=== PATIENT | male | born 1945 | race Hispanic/Latino ===

== ENCOUNTER 2019-08-11 17:31 | Inpatient (IN) | payer MEDICARE ==
[2019-08-11] MEDS ORDERED: SODIUM CHLORIDE 0.9% 1000 ML IV SOLN IV ONE (19:13)
--- NOTE | 2019-08-11 19:18 | Emergency Department Report ---
ED General Adult HPI - General Chief complaint: Abdominal Pain Stated complaint: DIFFICULTY URINATING X1DAY Time Seen by Provider: 08/11/19 18:53 Source: EMS (EMS documentation not available at the time of chart dictation), RN notes reviewed, old records reviewed Mode of arrival: Stretcher Limitations: Physical Limitation - History of Present Illness Initial comments: The patient is a 74-year-old gentleman. The patient is not known to this provider previously. Patient has history of hepatic encephalopathy with liver cirrhosis, hyperammonemia, systemic inflammatory response syndrome, shock, septic versus distributive versus hypovolemic, previously required vasopressors, hypokalemia, malnutrition, A. fib with hypercoagulable state, numerous skin wounds, question subclinical hypothyroidism, and reported VRE in his urine. Patient was sent to the emergency room by his personal assisted for not producing any urine. Apparently, he had a condom catheter which was not attached or overlying his phallus. Therefore, no urine output was noted. In the emergency room, a Rodarte catheter was placed, and clear yellow urine was immediately obtained. In the emergency room, he was found to be hypothermic with a core temperature of 89 rectally, and was also found to be hypotensive, with a blood pressure in the 50s and 60s. The patient is making nonspecific sounds and moving his extremities without difficulty, he is not able to describe exacerbating or relieving factors, qualitative nature of his symptoms. His primary care physician and his personal assisted is Dr. Digna earl -: unknown Quality: other Consistency: other Improves with: other Worsens with: other Associated Symptoms: other - Related Data Previous Rx's Medication Instructions Recorded Last Taken Type Lactulose [Cephulac] 20 gm PO QDAY #30 oral.liqd 07/11/19 Unknown Rx Pantoprazole [Protonix TAB] 40 mg PO BID #60 tablet 07/11/19 Unknown Rx Rifaximin [Xifaxan] 550 mg PO BID tablet 07/11/19 Unknown Rx Sodium Bicarbonate 1,300 mg PO TID tablet 07/11/19 Unknown Rx oxyCODONE /ACETAMINOPHEN [Percocet 1 tab PO Q6H PRN #7 tablet 07/11/19 Unknown Rx 5/325 mg] Allergies Allergy/AdvReac Type Severity Reaction Status Date / Time Unable to Assess Allergy Verified 07/04/19 05:14 ED Review of Systems ROS: Stated complaint: DIFFICULTY URINATING X1DAY Other details as noted in HPI Comment: Unobtainable due to pts medical conditions ED Past Medical Hx - Past Medical History Previous Medical History?: Yes Hx Liver Disease: Yes (cirrhosis) Hx Renal Disease: Yes (ESRD) Additional medical history: alcoholic - Social History Smoking Status: Never Smoker - Medications Home Medications: Home Medications Medication Instructions Recorded Confirmed Last Taken Type Lactulose [Cephulac] 20 gm PO QDAY #30 oral.liqd 07/11/19 Unknown Rx Pantoprazole [Protonix TAB] 40 mg PO BID #60 tablet 07/11/19 Unknown Rx Rifaximin [Xifaxan] 550 mg PO BID tablet 07/11/19 Unknown Rx Sodium Bicarbonate 1,300 mg PO TID tablet 07/11/19 Unknown Rx oxyCODONE /ACETAMINOPHEN [Percocet 1 tab PO Q6H PRN #7 tablet 07/11/19 Unknown Rx 5/325 mg] ED Physical Exam - General Limitations: Physical Limitation General appearance: in distress, other (H and agitated.) - Head Head exam: Present: atraumatic, normocephalic - Eye Eye exam: Present: normal appearance - ENT ENT exam: Present: normal orophraynx, mucous membranes dry, normal external ear exam - Neck Neck exam: Present: normal inspection, full ROM. Absent: tenderness, meningismus - Respiratory Respiratory exam: Present: decreased breath sounds. Absent: respiratory distress, wheezes, rales, rhonchi, stridor - Cardiovascular Cardiovascular Exam: Present: regular rate, normal rhythm. Absent: tachycardia, irregular rhythm, systolic murmur, diastolic murmur, rubs, gallop - GI/Abdominal GI/Abdominal exam: Present: soft, distended. Absent: tenderness, guarding, rebound, rigid, pulsatile mass - Rectal Rectal exam: Present: normal inspection, other (sacral wound is noted. Brown stool noted.) - Extremities Exam Extremities exam: Present: normal inspection, pedal edema - Back Exam Back exam: Present: normal inspection. Absent: tenderness, CVA tenderness (R), paraspinal tenderness, vertebral tenderness - Neurological Exam Neurological exam: Present: altered, other (patient moving 4 extremities. Flailing back and forth. Making nonsensical sounds. Unable to perform detailed neurologic examination secondary to altered mental status) - Psychiatric Psychiatric exam: Present: anxious - Skin Skin exam: Present: warm, abrasion, ecchymosis, other (numerous skin wounds noted. Edema noted on lower extremities.) ED Course - Reevaluation(s) Reevaluation #1: 08/11/19 20:28 Differential diagnosis, including not limited to: Bacteremia, viremia, hypothyroidism, hyperammonemia, Assessment and plan: 74-year-old gentleman, with clear yellow urine output after placement of Rodarte catheter, found to be hypothermic and hypotensive. Patient is delirious at this time. His enclosed documentation indicates that he is a full code. He will require emergent placement of central venous line for administration of fluids, vasopressor therapy, and broad-spectrum antibiotics. CT scan of the brain requested. Prognosis is quite guarded at this time. EKG attempted, however, patient would not sit still, the EKG is uninterpretable at this time. We will give the patient a small dose of Versed To facilitate acquisition of diagnostics, EKG and placement of the central line. Reevaluation #2: 08/11/19 20:30 The patient will be placed on contact isolation given history of vancomycin- resistant enterococcus. Cefepime and linelozid were ordered Reevaluation #3: 08/11/19 22:21 Patient remained persistently hypotensive. Required emergent sterile placement of central line. This was performed with ultrasound guidance. Laboratory studies suggest renal insufficiency, hypoglycemia, hyperammonemia, hypokalemia, leukocytosis, probable hepatorenal syndrome. Vasopressors are ordered and infusing. Hospital physician, Dr. Alvarado medical service. - Central Line Placement Left IJ Consent Obtained: emergent situation Time Out Performed: Yes Patient Placed on Monitor/Pulse Ox: Yes MD Prep: mask, gown, gloves Central Line Prep: Chlorhexidine scrub, sterile drapes applied Local Anesthesia Used: Lidocaine 2%, with Epi Amount of Anesthesia Used (mls): 6 Ultrasound Used for Placement: Yes Central Line Lumen Inserted: triple Bloods Obtained for Lab: No Central Line Position: good blood return, all ports aspirated, flus, sutured in place with 2-0 Dressing Applied: Tegaderm Post Procedure X-Ray: tip of catheter in good p Patient Tolerated Procedure: well Complications: none ED Medical Decision Making - Lab Data Result diagrams: 08/11/19 20:14 08/11/19 20:11 Lab Results 08/11/19 08/11/19 08/11/19 Range/Units 20:11 20:11 20:11 WBC (4.5-11.0) K/mm3 RBC (3.65-5.03) M/mm3 Hgb (11.8-15.2) gm/dl Hct (35.5-45.6) % MCV (84-94) fl MCH (28-32) pg MCHC (32-34) % RDW (13.2-15.2) % Plt Count (140-440) K/mm3 Add Manual Diff Total Counted Seg Neutrophils % Seg Neuts % (Manual) (40.0-70.0) % Band Neutrophils % % Lymphocytes % (Manual) (13.4-35.0) % Reactive Lymphs % (Man) % Monocytes % (Manual) (0.0-7.3) % Eosinophils % (Manual) (0.0-4.3) % Basophils % (Manual) (0.0-1.8) % Metamyelocytes % % Myelocytes % % Promyelocytes % % Blast Cells % % Nucleated RBC % Seg Neutrophils # Man (1.8-7.7) K/mm3 Band Neutrophils # K/mm3 Lymphocytes # (Manual) (1.2-5.4) K/mm3 Abs React Lymphs (Man) K/mm3 Monocytes # (Manual) (0.0-0.8) K/mm3 Eosinophils # (Manual) (0.0-0.4) K/mm3 Basophils # (Manual) (0.0-0.1) K/mm3 Metamyelocytes # K/mm3 Myelocytes # K/mm3 Promyelocytes # K/mm3 Blast Cells # K/mm3 WBC Morphology Hypersegmented Neuts Hyposegmented Neuts Hypogranular Neuts Smudge Cells Toxic Granulation Toxic Vacuolation Dohle Bodies Pelger-Huet Anomaly Pastor Rods Platelet Estimate Clumped Platelets Plt Clumps, EDTA Large Platelets Giant Platelets Platelet Satelliting Plt Morphology Comment RBC Morphology Dimorphic RBCs Polychromasia Hypochromasia Poikilocytosis Anisocytosis Microcytosis Macrocytosis Spherocytes Pappenheimer Bodies Sickle Cells Target Cells Tear Drop Cells Ovalocytes Helmet Cells Pruitt-Leyner Bodies Becket Rings Crisfield Cells Bite Cells Crenated Cell Elliptocytes Acanthocytes (Spur) Rouleaux Hemoglobin C Crystals Schistocytes Malaria parasites Ranjith Bodies Hem Pathologist Commnt PT 21.1 H (12.2-14.9) Sec. INR 1.86 H (0.87-1.13) APTT 52.9 H (24.2-36.6) Sec. Sodium (137-145) mmol/L Potassium (3.6-5.0) mmol/L Chloride (98-107) mmol/L Carbon Dioxide (22-30) mmol/L Anion Gap mmol/L BUN (9-20) mg/dL Creatinine (0.8-1.5) mg/dL Estimated GFR ml/min BUN/Creatinine Ratio % Glucose (75-100) mg/dL Lactic Acid 3.00 H* (0.7-2.0) mmol/L Calcium (8.4-10.2) mg/dL Total Bilirubin (0.1-1.2) mg/dL AST (5-40) units/L ALT (7-56) units/L Alkaline Phosphatase (35-129) units/L Ammonia (25-60) umol/L Total Creatine Kinase (55-170) units/L Troponin T 0.086 H (0.00-0.029) ng/mL Total Protein (6.3-8.2) g/dL Albumin (3.9-5) g/dL Albumin/Globulin Ratio % Triglycerides 93 (2-149) mg/dL Cholesterol 168 (50-199) mg/dL LDL Cholesterol Direct 140 H (50-130) mg/dL HDL Cholesterol 14 L (40-59) mg/dL Cholesterol/HDL Ratio 12.00 % TSH (0.270-4.200) mlU/mL Salicylates (2.8-20.0) mg/dL Acetaminophen (10.0-30.0) ug/mL Plasma/Serum Alcohol (0-0.07) % Blood Type Antibody Screen 08/11/19 08/11/19 08/11/19 Range/Units 20:11 20:11 20:11 WBC (4.5-11.0) K/mm3 RBC (3.65-5.03) M/mm3 Hgb (11.8-15.2) gm/dl Hct (35.5-45.6) % MCV (84-94) fl MCH (28-32) pg MCHC (32-34) % RDW (13.2-15.2) % Plt Count (140-440) K/mm3 Add Manual Diff Total Counted Seg Neutrophils % Seg Neuts % (Manual) (40.0-70.0) % Band Neutrophils % % Lymphocytes % (Manual) (13.4-35.0) % Reactive Lymphs % (Man) % Monocytes % (Manual) (0.0-7.3) % Eosinophils % (Manual) (0.0-4.3) % Basophils % (Manual) (0.0-1.8) % Metamyelocytes % % Myelocytes % % Promyelocytes % % Blast Cells % % Nucleated RBC % Seg Neutrophils # Man (1.8-7.7) K/mm3 Band Neutrophils # K/mm3 Lymphocytes # (Manual) (1.2-5.4) K/mm3 Abs React Lymphs (Man) K/mm3 Monocytes # (Manual) (0.0-0.8) K/mm3 Eosinophils # (Manual) (0.0-0.4) K/mm3 Basophils # (Manual) (0.0-0.1) K/mm3 Metamyelocytes # K/mm3 Myelocytes # K/mm3 Promyelocytes # K/mm3 Blast Cells # K/mm3 WBC Morphology Hypersegmented Neuts Hyposegmented Neuts Hypogranular Neuts Smudge Cells Toxic Granulation Toxic Vacuolation Dohle Bodies Pelger-Huet Anomaly Pastor Rods Platelet Estimate Clumped Platelets Plt Clumps, EDTA Large Platelets Giant Platelets Platelet Satelliting Plt Morphology Comment RBC Morphology Dimorphic RBCs Polychromasia Hypochromasia Poikilocytosis Anisocytosis Microcytosis Macrocytosis Spherocytes Pappenheimer Bodies Sickle Cells Target Cells Tear Drop Cells Ovalocytes Helmet Cells Pruitt-Leyner Bodies Becket Rings Radha Cells Bite Cells Crenated Cell Elliptocytes Acanthocytes (Spur) Rouleaux Hemoglobin C Crystals Schistocytes Malaria parasites Ranjith Bodies Hem Pathologist Commnt PT (12.2-14.9) Sec. INR (0.87-1.13) APTT (24.2-36.6) Sec. Sodium 133 L (137-145) mmol/L Potassium 3.1 L (3.6-5.0) mmol/L Chloride 102.5 (98-107) mmol/L Carbon Dioxide 14 L (22-30) mmol/L Anion Gap 20 mmol/L BUN 79 H (9-20) mg/dL Creatinine 4.5 H (0.8-1.5) mg/dL Estimated GFR 13 ml/min BUN/Creatinine Ratio 18 % Glucose 61 L (75-100) mg/dL Lactic Acid (0.7-2.0) mmol/L Calcium 7.5 L (8.4-10.2) mg/dL Total Bilirubin 2.10 H (0.1-1.2) mg/dL AST 42 H (5-40) units/L ALT 17 (7-56) units/L Alkaline Phosphatase 148 H (35-129) units/L Ammonia 106.0 H (25-60) umol/L Total Creatine Kinase 34 L (55-170) units/L Troponin T (0.00-0.029) ng/mL Total Protein 4.9 L (6.3-8.2) g/dL Albumin 1.6 L (3.9-5) g/dL Albumin/Globulin Ratio 0.5 % Triglycerides (2-149) mg/dL Cholesterol (50-199) mg/dL LDL Cholesterol Direct (50-130) mg/dL HDL Cholesterol (40-59) mg/dL Cholesterol/HDL Ratio % TSH (0.270-4.200) mlU/mL Salicylates < 0.3 L (2.8-20.0) mg/dL Acetaminophen (10.0-30.0) ug/mL Plasma/Serum Alcohol (0-0.07) % Blood Type Antibody Screen 08/11/19 08/11/19 08/11/19 Range/Units 20:11 20:12 20:14 WBC 18.1 H (4.5-11.0) K/mm3 RBC 2.79 L (3.65-5.03) M/mm3 Hgb 8.7 L (11.8-15.2) gm/dl Hct 25.7 L (35.5-45.6) % MCV 92 (84-94) fl MCH 31 (28-32) pg MCHC 34 (32-34) % RDW 26.1 H (13.2-15.2) % Plt Count 72 L (140-440) K/mm3 Add Manual Diff Complete Total Counted 100 Seg Neutrophils % [employer] Seg Neuts % (Manual) 96.0 H (40.0-70.0) % Band Neutrophils % 0 % Lymphocytes % (Manual) 3.0 L (13.4-35.0) % Reactive Lymphs % (Man) 0 % Monocytes % (Manual) 0 (0.0-7.3) % Eosinophils % (Manual) 0 (0.0-4.3) % Basophils % (Manual) 0 (0.0-1.8) % Metamyelocytes % 1.0 % Myelocytes % 0 % Promyelocytes % 0 % Blast Cells % 0 % Nucleated RBC % Not Reportable Seg Neutrophils # Man 17.4 H (1.8-7.7) K/mm3 Band Neutrophils # 0.0 K/mm3 Lymphocytes # (Manual) 0.5 L (1.2-5.4) K/mm3 Abs React Lymphs (Man) 0.0 K/mm3 Monocytes # (Manual) 0.0 (0.0-0.8) K/mm3 Eosinophils # (Manual) 0.0 (0.0-0.4) K/mm3 Basophils # (Manual) 0.0 (0.0-0.1) K/mm3 Metamyelocytes # 0.2 K/mm3 Myelocytes # 0.0 K/mm3 Promyelocytes # 0.0 K/mm3 Blast Cells # 0.0 K/mm3 WBC Morphology Not Reportable Hypersegmented Neuts Not Reportable Hyposegmented Neuts Not Reportable Hypogranular Neuts Not Reportable Smudge Cells Not Reportable Toxic Granulation Not Reportable Toxic Vacuolation Not Reportable Dohle Bodies Not Reportable Pelger-Huet Anomaly Not Reportable Pastor Rods Not Reportable Platelet Estimate Consistent w auto Clumped Platelets Not Reportable Plt Clumps, EDTA Not Reportable Large Platelets Not Reportable Giant Platelets Not Reportable Platelet Satelliting Not Reportable Plt Morphology Comment Not Reportable RBC Morphology Not Reportable Dimorphic RBCs Not Reportable Polychromasia Not Reportable Hypochromasia Not Reportable Poikilocytosis 1+ Anisocytosis 1+ Microcytosis 1+ Macrocytosis Few Spherocytes Not Reportable Pappenheimer Bodies Not Reportable Sickle Cells Not Reportable Target Cells Not Reportable Tear Drop Cells Rare Ovalocytes Not Reportable Helmet Cells Not Reportable Pruitt-Leyner Bodies Not Reportable Becket Rings Not Reportable Radha Cells Not Reportable Bite Cells Not Reportable Crenated Cell Not Reportable Elliptocytes Not Reportable Acanthocytes (Spur) Not Reportable Rouleaux Not Reportable Hemoglobin C Crystals Not Reportable Schistocytes Not Reportable Malaria parasites Not Reportable Ranjith Bodies Not Reportable Hem Pathologist Commnt No PT (12.2-14.9) Sec. INR (0.87-1.13) APTT (24.2-36.6) Sec. Sodium (137-145) mmol/L Potassium (3.6-5.0) mmol/L Chloride (98-107) mmol/L Carbon Dioxide (22-30) mmol/L Anion Gap mmol/L BUN (9-20) mg/dL Creatinine (0.8-1.5) mg/dL Estimated GFR ml/min BUN/Creatinine Ratio % Glucose (75-100) mg/dL Lactic Acid (0.7-2.0) mmol/L Calcium (8.4-10.2) mg/dL Total Bilirubin (0.1-1.2) mg/dL AST (5-40) units/L ALT (7-56) units/L Alkaline Phosphatase (35-129) units/L Ammonia (25-60) umol/L Total Creatine Kinase (55-170) units/L Troponin T (0.00-0.029) ng/mL Total Protein (6.3-8.2) g/dL Albumin (3.9-5) g/dL Albumin/Globulin Ratio % Triglycerides (2-149) mg/dL Cholesterol (50-199) mg/dL LDL Cholesterol Direct (50-130) mg/dL HDL Cholesterol (40-59) mg/dL Cholesterol/HDL Ratio % TSH 2.280 (0.270-4.200) mlU/mL Salicylates (2.8-20.0) mg/dL Acetaminophen < 5.0 L (10.0-30.0) ug/mL Plasma/Serum Alcohol (0-0.07) % Blood Type Antibody Screen 08/11/19 08/11/19 Range/Units 20:14 20:15 WBC (4.5-11.0) K/mm3 RBC (3.65-5.03) M/mm3 Hgb (11.8-15.2) gm/dl Hct (35.5-45.6) % MCV (84-94) fl MCH (28-32) pg MCHC (32-34) % RDW (13.2-15.2) % Plt Count (140-440) K/mm3 Add Manual Diff Total Counted Seg Neutrophils % Seg Neuts % (Manual) (40.0-70.0) % Band Neutrophils % % Lymphocytes % (Manual) (13.4-35.0) % Reactive Lymphs % (Man) % Monocytes % (Manual) (0.0-7.3) % Eosinophils % (Manual) (0.0-4.3) % Basophils % (Manual) (0.0-1.8) % Metamyelocytes % % Myelocytes % % Promyelocytes % % Blast Cells % % Nucleated RBC % Seg Neutrophils # Man (1.8-7.7) K/mm3 Band Neutrophils # K/mm3 Lymphocytes # (Manual) (1.2-5.4) K/mm3 Abs React Lymphs (Man) K/mm3 Monocytes # (Manual) (0.0-0.8) K/mm3 Eosinophils # (Manual) (0.0-0.4) K/mm3 Basophils # (Manual) (0.0-0.1) K/mm3 Metamyelocytes # K/mm3 Myelocytes # K/mm3 Promyelocytes # K/mm3 Blast Cells # K/mm3 WBC Morphology Hypersegmented Neuts Hyposegmented Neuts Hypogranular Neuts Smudge Cells Toxic Granulation Toxic Vacuolation Dohle Bodies Pelger-Huet Anomaly Pastor Rods Platelet Estimate Clumped Platelets Plt Clumps, EDTA Large Platelets Giant Platelets Platelet Satelliting Plt Morphology Comment RBC Morphology Dimorphic RBCs Polychromasia Hypochromasia Poikilocytosis Anisocytosis Microcytosis Macrocytosis Spherocytes Pappenheimer Bodies Sickle Cells Target Cells Tear Drop Cells Ovalocytes Helmet Cells Pruitt-Leyner Bodies Becket Rings Crisfield Cells Bite Cells Crenated Cell Elliptocytes Acanthocytes (Spur) Rouleaux Hemoglobin C Crystals Schistocytes Malaria parasites Ranjith Bodies Hem Pathologist Commnt PT (12.2-14.9) Sec. INR (0.87-1.13) APTT (24.2-36.6) Sec. Sodium (137-145) mmol/L Potassium (3.6-5.0) mmol/L Chloride (98-107) mmol/L Carbon Dioxide (22-30) mmol/L Anion Gap mmol/L BUN (9-20) mg/dL Creatinine (0.8-1.5) mg/dL Estimated GFR ml/min BUN/Creatinine Ratio % Glucose (75-100) mg/dL Lactic Acid (0.7-2.0) mmol/L Calcium (8.4-10.2) mg/dL Total Bilirubin (0.1-1.2) mg/dL AST (5-40) units/L ALT (7-56) units/L Alkaline Phosphatase (35-129) units/L Ammonia (25-60) umol/L Total Creatine Kinase (55-170) units/L Troponin T (0.00-0.029) ng/mL Total Protein (6.3-8.2) g/dL Albumin (3.9-5) g/dL Albumin/Globulin Ratio % Triglycerides (2-149) mg/dL Cholesterol (50-199) mg/dL LDL Cholesterol Direct (50-130) mg/dL HDL Cholesterol (40-59) mg/dL Cholesterol/HDL Ratio % TSH (0.270-4.200) mlU/mL Salicylates (2.8-20.0) mg/dL Acetaminophen (10.0-30.0) ug/mL Plasma/Serum Alcohol < 0.01 (0-0.07) % Blood Type A NEGATIVE Antibody Screen Negative - EKG Data -: EKG Interpreted by Me - Radiology Data Radiology results: report reviewed, image reviewed interpreted by me: Print Report Referring Physician: JEREMIAS BESS Patient Name: ANNITA LEVY Date of : 1945 Sex: Male Report Date: 2019-08-11 Report Status: Finalized Findings [facility] [address] [place] [address] XRay Report Signed Patient: ANNITA LEVY MR#: [id number] [birth year] : 1945 Acct:[id number] Age/Sex: 74 / M ADM Date: 08/11/19 Loc: ED Attending Dr: Jessica anderson Physician: JEREMIAS BESS MD Date of Service: 08/11/19 Procedure(s): XR chest 1V ap Accession Number(s): [id number] cc: JEREMIAS BESS MD Fluoro Time In Minutes: CHEST 1 VIEW INDICATION / CLINICAL INFORMATION: centrla line placement. COMPARISON: 08/11/2019 at 1932 hours FINDINGS: SUPPORT DEVICES: Left central venous catheter which is superimposed over the aortic arch HEART / MEDIASTINUM: No significant abnormality. LUNGS / PLEURA: Bilateral pleural effusions No pneumothorax. ADDITIONAL FINDINGS: No significant additional findings. IMPRESSION: A left central venous catheter has been placed and the tip is superimposed over the expected position of the aortic arch. No evidence of a left-sided pneumothorax. Bilateral pleural effusions persist Signer Name: Chad Ontiveros MD FACR Signed: 08/11/2019 10:00 PM Workstation Name: [id number] Transcribed By: MS Dictated By: Chad Ontiveros MD Electronically Authenticated By: Chad Ontiveros MD Signed Date/Time: 08/11/192199 DD/ 58 Print Report Referring Physician: JEREMIAS BESS Patient Name: ANNITA LEVY Date of : 1945 Sex: Male Report Date: 2019-08-11 Report Status: Finalized Findings [facility] [address] [place] [address] Cat Scan Report Signed Patient: ANNITA LEVY MR#: [id number] [birth year] : 1945 Acct:[id number] Age/Sex: 74 / M ADM Date: 08/11/19 Loc: ED Attending Dr: Ordering Physician: JEREMIAS BESS MD Date of Service: 08/11/19 Procedure(s): CT head/brain wo con Accession Number(s): [id number] cc: JEREMIAS BESS MD CT HEAD WITHOUT CONTRAST INDICATION / CLINICAL INFORMATION: altered mental status. TECHNIQUE: All CT scans at this location are performed using CT dose reduction for ALARA by means of automated exposure control. COMPARISON: Head CT 07/04/2019 FINDINGS: Limitations: Multiple acquisitions were obtained to overcome significant patient motion artifact. HEMORRHAGE: No evidence of intracranial hemorrhage or extra-axial fluid collection. EXTRA-AXIAL SPACES: Cortical sulci and sylvian fissures are enlarged reflecting a degree of parenchymal volume loss which is greater than expected for the patient's age 74 years. Basilar cisterns have an unremarkable appearance. VENTRICULAR SYSTEM: The third and lateral ventricles are enlarged reflecting the presence of moderate parenchymal volume loss. CEREBRAL PARENCHYMA: Periventricular and deep white matter lucency is observed. This is probably secondary to microvascular ischemic change. There is no indication of recent infarction. No areas of encephalomalacia are identified. MIDLINE SHIFT OR HERNIATION: There is no mass effect. CEREBELLUM / BRAINSTEM: Brainstem and cerebellum have an unremarkable appearance. INTRACRANIAL VESSELS:Calcified atherosclerotic plaque is present along the course of the cavernous segments of both internal carotid arteries. Similar findings are seen at the distal vertebral arteries. ORBITS: visualized portions of the orbits have an unremarkable appearance. SOFT TISSUES of HEAD: No significant abnormality. CALVARIUM: Evaluation of bone windows reveals no abnormalities. PARANASAL SINUSES / MASTOID AIR CELLS: Paranasal sinuses are free from inflammatory mucosal disease. Inflammatory changes are present within several left-sided mastoid air cells. These findings have improved in comparison to previous study. IMPRESSION: 1. Moderate parenchymal volume loss and microvascular ischemic change. 2. No acute intracranial abnormalities. No interval change since 07/04/2019. Signer Name: Bishop Fairbanks MD Signed: 08/11/2019 9:34 PM Workstation Name: [id number] Transcribed By: Dictated By: Bishop Fairbanks MD Electronically Authenticated By: Bishop Fairbanks MD Signed Date/Time: 08/11/192133 DD/ 29 TD/TT: Print Report Referring Physician: JEREMIAS BESS Patient Name: ANNITA LEVY Date of : 1945 Sex: Male Report Date: 2019-08-11 Report Status: Finalized Findings [address] [address] XRay Report Signed Patient: ANNITA LEVY MR#: [id number] [birth year] : 1945 Acct:[id number] Age/Sex: 74 / M ADM Date: 08/11/19 Loc: ED Attending Dr: Ordering Physician: JEREMIAS BESS MD Date of Service: 08/11/19 Procedure(s): XR chest 1V ap Accession Number(s): [id number] cc: JEREMIAS BESS MD Fluoro Time In Minutes: CHEST 1 VIEW INDICATION / CLINICAL INFORMATION: sepsis. COMPARISON: None available. FINDINGS: SUPPORT DEVICES: None. HEART / MEDIASTINUM: No significant abnormality. LUNGS / PLEURA: Pleural-parenchymal disease in the left lung base similar to 07/06/2019 No pneumothorax. ADDITIONAL FINDINGS: No significant additional findings. IMPRESSION: All parenchymal disease in the left lung base similar to 07/06/2019. The right lung is clear. Signer Name: Chad Ontiveros MD FACR Signed: 08/11/2019 7:56 PM Workstation Name: [id number] Transcribed By: MS Dictated By: Chad Ontiveros MD Electronically Authenti cated By: Chad Ontiveros MD Signed Date/Time: 08/11/191955 Critical Care Time: Yes Critical care time in (mins) excluding proc time.: 60 Critical care attestation.: If time is entered above; I have spent that time in minutes in the direct care of this critically ill patient, excluding procedure time. ED Disposition Clinical Impression: Renal insufficiency, Hepatic encephalopathy, Hypothermia, Encephalopathy, Severe malnutrition, Cirrhosis, Lactic acid acidosis Disposition: DC-09 OP ADMIT IP TO THIS HOSP Is pt being admited?: Yes Condition: Critical
[2019-08-11] MEDS ORDERED: LINEZOLID 600 MG/300 ML BAG IV ONE (20:00)
[2019-08-11] MEDS ORDERED: CEFEPIME/NS 2 GM/100 ML 2 GM/100 ML BAG IV ONE (20:00)
--- NOTE | 2019-08-11 20:00 | XRay Report ---
CHEST 1 VIEW INDICATION / CLINICAL INFORMATION: sepsis. COMPARISON: None available. FINDINGS: SUPPORT DEVICES: None. HEART / MEDIASTINUM: No significant abnormality. LUNGS / PLEURA: Pleural-parenchymal disease in the left lung base similar to 07/06/2019 No pneumothor ax. ADDITIONAL FINDINGS: No significant additional findings. IMPRESSION: All parenchymal disease in the left lung base similar to 07/06/2019. The right lung is clear. Signer Name: Chad Ontiveros MD FACR Signed: 08/11/2019 7:56 PM Workstation Name: [id number]
[2019-08-11] MEDS ORDERED: LIDOCAINE 2%/EPINEPHRINE 1:200,000 VIAL (20 ML) INFILTRATI ONE (20:21)
[2019-08-11] MEDS ORDERED: MIDAZOLAM 5 MG/5 ML INJ MDV IV ONE (20:31)
[2019-08-11 20:37] LABS: Hematocrit 25.7 % (35.5-45.6); Hemoglobin 8.7 gm/dl (11.8-15.2); Mean Corpuscular HGB Conc 34 % (32-34); Mean Corpuscular Volume 92 fl (84-94); Red Blood Count 2.79 M/mm3 (3.65-5.03)
[2019-08-11 20:44] LABS: Albumin 1.6 g/dL (3.9-5); Calcium 7.5 mg/dL (8.4-10.2)
[2019-08-11 20:44] LABS: Platelet Count 72 K/mm3 (140-440); Red Cell Distribution Width 26.1 % (13.2-15.2)
[2019-08-11 20:46] LABS: INR 1.86 (0.87-1.13)
[2019-08-11 20:47] LABS: Partial Thromboplastin Time 52.9 Sec. (24.2-36.6)
[2019-08-11] MEDS ORDERED: DEXTROSE 50% IN WATER (25GM) 50 ML SYRINGE IV ONE (21:37)
[2019-08-11] MEDS ORDERED: DEXTROSE 50% IN WATER (25GM) 50 ML SYRINGE IV PRN ×2 (21:37→23:00)
[2019-08-11] MEDS ORDERED: LACTULOSE ENEMA 1000 ML PR ONE (21:38)
--- NOTE | 2019-08-11 21:38 | Cat Scan Report ---
CT HEAD WITHOUT CONTRAST INDICATION / CLINICAL INFORMATION: altered mental status. TECHNIQUE: All CT scans at this location are performed using CT dose reduction for ALARA by means of automated e xposure control. COMPARISON: Head CT 07/04/2019 FINDINGS: Limitations: Multiple acquisitions were obtained to overcome significant patient motion artifact. HEMORRHAGE: No evidence of intracranial hemorrhage or extra-axial fluid collection. EXTRA-AXIAL SPACES: Cortical sulci and sylvian fissures are enlarged reflecting a degree of parenchym al volume loss which is greater than expected for the patient's age 74 years. Basilar cisterns have a n unremarkable appearance. VENTRICULAR SYSTEM: The third and lateral ventricles are enlarged reflecting the presence of moderate parenchymal volume loss. CEREBRAL PARENCHYMA: Periventricular and deep white matter lucency is observed. This is probably seco ndary to microvascular ischemic change. There is no indication of recent infarction. No areas of ence phalomalacia are identified. MIDLINE SHIFT OR HERNIATION: There is no mass effect. CEREBELLUM / BRAINSTEM: Brainstem and cerebellum have an unremarkable appearance. INTRACRANIAL VESSELS:Calcified atherosclerotic plaque is present along the course of the cavernous se gments of both internal carotid arteries. Similar findings are seen at the distal vertebral arteries. ORBITS: visualized portions of the orbits have an unremarkable appearance. SOFT TISSUES of HEAD: No significant abnormality. CALVARIUM: Evaluation of bone windows reveals no abnormalities. PARANASAL SINUSES / MASTOID AIR CELLS: Paranasal sinuses are free from inflammatory mucosal disease. Inflammatory changes are present within several left-sided mastoid air cells. These findings have imp roved in comparison to previous study. IMPRESSION: 1. Moderate parenchymal volume loss and microvascular ischemic change. 2. No acute intracranial abnormalities. No interval change since 07/04/2019. Signer Name: Bishop Fairbanks MD Signed: 08/11/2019 9:34 PM Workstation Name: [id number]
[2019-08-11 21:44] LABS: Basophils % (Manual) 0 % (0.0-1.8); Eosinophils % (Manual) 0 % (0.0-4.3); Monocytes % (Manual) 0 % (0.0-7.3); Total Cells Counted 100
[2019-08-11 21:45] LABS: Anisocytosis 1+; Macrocytosis Few; Poikilocytosis 1+; Tear Drop Cells Rare
[2019-08-11 21:46] LABS: Platelet Estimate Consistent w Auto
[2019-08-11] MEDS ORDERED: DEXTROSE 10% IN WATER 1,000 ML IV SCH (22:00)
--- NOTE | 2019-08-11 22:05 | XRay Report ---
CHEST 1 VIEW INDICATION / CLINICAL INFORMATION: centrla line placement. COMPARISON: 08/11/2019 at 1932 hours FINDINGS: SUPPORT DEVICES: Left central venous catheter which is superimposed over the aortic arch HEART / MEDIASTINUM: No significant abnormality. LUNGS / PLEURA: Bilateral pleural effusions No pneumothorax. ADDITIONAL FINDINGS: No significant additional findings. IMPRESSION: A left central venous catheter has been placed and the tip is superimposed over the expected position of the aortic arch. No evidence of a left-sided pneumothorax. Bilateral pleural effusions persist Signer Name: Chad Ontiveros MD FACR Signed: 08/11/2019 10:00 PM Workstation Name: [id number]
[2019-08-11] MEDS: POTASSIUM CHLORIDE 20 MEQ 20 MEQ/100 ML BAG IV SCH (22:30)
[2019-08-11] MEDS: NORepinephrine/NS 4 MG-250 ML 4 MG/250 ML BAG IV SCH (22:30)
[2019-08-11] MEDS ORDERED: ONDANSETRON 4 MG/2 ML INJ IV PRN (23:13)
--- NOTE | 2019-08-11 23:31 | History and Physical Report ---
History of Present Illness Date of examination: 08/11/19 Date of admission: 08/11/19 23:13 History of present illness: Patient is unable to give a history. Old chart was reviewed. This is a 74 with a history of cirrhosis, pressure ulcers was sent to the emergency room for evaluation of notbeing able to make urine. The condom cath was not in place. In the emergency room, a Rodarte was placed In the emergency room, a Rodarte was placed with good results. Patient was found to be septic with hepatic encephalopathy. s/p cefepime, zyvox, started on levophed drip. A review of system is unavailable PAST MEDICAL HISTORY cirrhosis, pressure ulcers PAST SURGICAL HISTORY: Unknown SOCIAL HISTORY: Unknown FAMILY HISTORY: Unknown Medications and Allergies Allergies Allergy/AdvReac Type Severity Reaction Status Date / Time Unable to Assess Allergy Verified 07/04/19 05:14 Home Medications Medication Instructions Recorded Confirmed Last Taken Type Lactulose [Cephulac] 20 gm PO QDAY #30 oral.liqd 07/11/19 08/11/19 Unknown Rx Pantoprazole [Protonix TAB] 40 mg PO BID #60 tablet 07/11/19 08/11/19 Unknown Rx Rifaximin [Xifaxan] 550 mg PO BID tablet 07/11/19 08/11/19 Unknown Rx Sodium Bicarbonate 1,300 mg PO TID tablet 07/11/19 08/11/19 Unknown Rx oxyCODONE /ACETAMINOPHEN [Percocet 1 tab PO Q6H PRN #7 tablet 07/11/19 08/11/19 Unknown Rx 5/325 mg] Active Meds: Active Medications Dextrose (D50w (25gm) Syringe) 0 ml IV Q30MIN PRN; Protocol PRN Reason: Hypoglycemia Dextrose (D10w) 1,000 mls @ 100 mls/hr IV DIRECT FORTINO Last Admin: 08/11/19 22:45 Dose: 100 mls/hr Documented by: Norepinephrine (Levophed Drip 4 Mg/Ns 250 Ml) 4 mg in 250 mls @ 7.5 mls/hr IV TITR FORTINO; Protocol Last Titration: 08/11/19 22:45 Dose: 15 mcg/min, 56.25 mls/hr Documented by: Potassium Chloride (Kcl 20meq/100ml) 20 meq in 100 mls @ 100 mls/hr IV Q1H FORTINO Stop: 08/12/19 00:59 Last Admin: 08/11/19 22:30 Dose: 100 mls/hr Documented by: Cefepime HCl (Cefepime/Ns 1 Gm/100 Ml) 1 gm in 100 mls @ 200 mls/hr IV Q12H FORTINO; Protocol Lactulose (Cephulac) 200 gm CO Q6H FORTINO Ondansetron HCl (Zofran) 4 mg IV Q8H PRN PRN Reason: Nausea And Vomiting Sodium Chloride (Sodium Chloride Flush Syringe 10 Ml) 10 ml IV BID FORTINO Sodium Chloride (Sodium Chloride Flush Syringe 10 Ml) 10 ml IV PRN PRN PRN Reason: LINE FLUSH Exam - Physical Exam Narrative exam: Gen. appearance: Patient lying in bed, no apparent distress HEENT: Normocephalic, atraumatic, pupils equally round and reactive to light, extraocular movement intact, + sclericterus,. No JVD or thyromegaly or nodule,neck supple, no carotid bruit ,mucous membranes moist, no exudate or erythema Heart: S1, S2, regular rate and rhythm Lungs: Clear bilaterally anteriorly, breathing comfortable Abdomen: Positive bowel sounds, soft, nondistended, no organomegaly Extremity:+edema up to thighs, no cyanosis, clubbing Skin: Multiple ecchymosis, Multiple ecchymosis, pressure ulcers on LE, no rash, dry, warm Neuro: difficult to assess - Constitutional Vitals: Temp Pulse Resp BP Pulse Ox 72 12 115/60 100 08/11/19 22:46 08/11/19 22:46 08/11/19 22:46 08/11/19 22:46 Results - Labs CBC & Chem 7: 08/11/19 20:14 08/12/19 05:10 Labs: Abnormal lab results 08/11/19 08/11/19 08/11/19 Range/Units 20:11 20:11 20:11 WBC (4.5-11.0) K/mm3 RBC (3.65-5.03) M/mm3 Hgb (11.8-15.2) gm/dl Hct (35.5-45.6) % RDW (13.2-15.2) % Plt Count (140-440) K/mm3 Seg Neuts % (Manual) (40.0-70.0) % Lymphocytes % (Manual) (13.4-35.0) % Seg Neutrophils # Man (1.8-7.7) K/mm3 Lymphocytes # (Manual) (1.2-5.4) K/mm3 PT 21.1 H (12.2-14.9) Sec. INR 1.86 H (0.87-1.13) APTT 52.9 H (24.2-36.6) Sec. Sodium (137-145) mmol/L Potassium (3.6-5.0) mmol/L Carbon Dioxide (22-30) mmol/L BUN (9-20) mg/dL Creatinine (0.8-1.5) mg/dL Glucose (75-100) mg/dL POC Glucose (70-105) Lactic Acid 3.00 H* (0.7-2.0) mmol/L Calcium (8.4-10.2) mg/dL Total Bilirubin (0.1-1.2) mg/dL AST (5-40) units/L Alkaline Phosphatase (35-129) units/L Ammonia (25-60) umol/L Total Creatine Kinase (55-170) units/L Troponin T 0.086 H (0.00-0.029) ng/mL Total Protein (6.3-8.2) g/dL Albumin (3.9-5) g/dL LDL Cholesterol Direct 140 H (50-130) mg/dL HDL Cholesterol 14 L (40-59) mg/dL Salicylates (2.8-20.0) mg/dL Acetaminophen (10.0-30.0) ug/mL 08/11/19 08/11/19 08/11/19 Range/Units 20:11 20:11 20:11 WBC (4.5-11.0) K/mm3 RBC (3.65-5.03) M/mm3 Hgb (11.8-15.2) gm/dl Hct (35.5-45.6) % RDW (13.2-15.2) % Plt Count (140-440) K/mm3 Seg Neuts % (Manual) (40.0-70.0) % Lymphocytes % (Manual) (13.4-35.0) % Seg Neutrophils # Man (1.8-7.7) K/mm3 Lymphocytes # (Manual) (1.2-5.4) K/mm3 PT (12.2-14.9) Sec. INR (0.87-1.13) APTT (24.2-36.6) Sec. Sodium 133 L (137-145) mmol/L Potassium 3.1 L (3.6-5.0) mmol/L Carbon Dioxide 14 L (22-30) mmol/L BUN 79 H (9-20) mg/dL Creatinine 4.5 H (0.8-1.5) mg/dL Glucose 61 L (75-100) mg/dL POC Glucose (70-105) Lactic Acid (0.7-2.0) mmol/L Calcium 7.5 L (8.4-10.2) mg/dL Total Bilirubin 2.10 H (0.1-1.2) mg/dL AST 42 H (5-40) units/L Alkaline Phosphatase 148 H (35-129) units/L Ammonia 106.0 H (25-60) umol/L Total Creatine Kinase 34 L (55-170) units/L Troponin T (0.00-0.029) ng/mL Total Protein 4.9 L (6.3-8.2) g/dL Albumin 1.6 L (3.9-5) g/dL LDL Cholesterol Direct (50-130) mg/dL HDL Cholesterol (40-59) mg/dL Salicylates < 0.3 L (2.8-20.0) mg/dL Acetaminophen (10.0-30.0) ug/mL 08/11/19 08/11/19 08/11/19 Range/Units 20:11 20:14 22:39 WBC 18.1 H (4.5-11.0) K/mm3 RBC 2.79 L (3.65-5.03) M/mm3 Hgb 8.7 L (11.8-15.2) gm/dl Hct 25.7 L (35.5-45.6) % RDW 26.1 H (13.2-15.2) % Plt Count 72 L (140-440) K/mm3 Seg Neuts % (Manual) 96.0 H (40.0-70.0) % Lymphocytes % (Manual) 3.0 L (13.4-35.0) % Seg Neutrophils # Man 17.4 H (1.8-7.7) K/mm3 Lymphocytes # (Manual) 0.5 L (1.2-5.4) K/mm3 PT (12.2-14.9) Sec. INR (0.87-1.13) APTT (24.2-36.6) Sec. Sodium (137-145) mmol/L Potassium (3.6-5.0) mmol/L Carbon Dioxide (22-30) mmol/L BUN (9-20) mg/dL Creatinine (0.8-1.5) mg/dL Glucose (75-100) mg/dL POC Glucose 124 H (70-105) Lactic Acid (0.7-2.0) mmol/L Calcium (8.4-10.2) mg/dL Total Bilirubin (0.1-1.2) mg/dL AST (5-40) units/L Alkaline Phosphatase (35-129) units/L Ammonia (25-60) umol/L Total Creatine Kinase (55-170) units/L Troponin T (0.00-0.029) ng/mL Total Protein (6.3-8.2) g/dL Albumin (3.9-5) g/dL LDL Cholesterol Direct (50-130) mg/dL HDL Cholesterol (40-59) mg/dL Salicylates (2.8-20.0) mg/dL Acetaminophen < 5.0 L (10.0-30.0) ug/mL - Imaging and Cardiology CT Scan - head: report reviewed Assessment and Plan Assessment Septic Shock Acute Renal Failure Hepatic Encephalopathy Abnormal cadiac enzymes Hypoglycemia Anemia Thrombocytopenia Hyponatremia Hypokalemia Cirrhosis Coagulopathy Plan Admit to medicine Start IV fluid, pain cefepime,levophed drip, status post Zyvox Start lactulose, check ammonia level, follow cultures, check UA Check cardiac enzymes, echo, monitor BS, ammonia Consult critical care, renal DVT prophalaxis
[2019-08-12 01:24] LABS: Creatine Kinase MB 7.5 ng/mL (0.0-4.0)
[2019-08-12] MEDS: POTASSIUM CHLORIDE 20 MEQ 20 MEQ/100 ML BAG IV SCH ×2 (01:32)
[2019-08-12] MEDS: D5W/0.45% NACL 1,000 ML IV SCH (02:20)
[2019-08-12] MEDS: NORepinephrine/NS 4 MG-250 ML 4 MG/250 ML BAG IV SCH ×5 (02:26→22:16)
[2019-08-12] MEDS ORDERED: LACTULOSE ENEMA 1000 ML PR SCH (03:00)
[2019-08-12 04:07] LABS: Bacteria,Urine 2+ /HPF (Negative); Bilirubin,Urine NEG (Negative); Blood,Urine MOD (Negative); Color,Urine Amber (Yellow); Mucus,Urine 3+ /HPF; Urobilinogen,Urine < 2.0 mg/dL (<2.0)
[2019-08-12 04:12] LABS: WBC,Urine > 182.0 /HPF (0.0-6.0)
[2019-08-12] MEDS: CEFEPIME/NS 1 GM/100 ML 1 GM/100 ML BAG IV SCH (05:12)
[2019-08-12 05:32] LABS: Hematocrit 29.1 % (35.5-45.6); Hemoglobin 9.5 gm/dl (11.8-15.2); Mean Corpuscular HGB Conc 33 % (32-34); Mean Corpuscular Volume 93 fl (84-94); Red Blood Count 3.11 M/mm3 (3.65-5.03)
[2019-08-12 05:43] LABS: INR 2.01 (0.87-1.13)
[2019-08-12 05:44] LABS: Partial Thromboplastin Time 55.3 Sec. (24.2-36.6)
[2019-08-12 05:49] LABS: Albumin 1.8 g/dL (3.9-5); Calcium 7.1 mg/dL (8.4-10.2)
[2019-08-12 05:50] LABS: Creatine Kinase MB 8.3 ng/mL (0.0-4.0)
[2019-08-12 06:50] LABS: Platelet Count 95 K/mm3 (140-440); Red Cell Distribution Width 26.9 % (13.2-15.2)
[2019-08-12 09:37] LABS: Basophils % (Manual) 0 % (0.0-1.8); Eosinophils % (Manual) 0 % (0.0-4.3); Total Cells Counted 100
[2019-08-12 09:38] LABS: Anisocytosis 2+; Macrocytosis Rare; Ovalocytes Few; Poikilocytosis 2+; Tear Drop Cells Rare
[2019-08-12 09:39] LABS: Large Platelets Rare; Platelet Estimate Consistent w Auto
[2019-08-12] MEDS ORDERED: PHYTONADIONE(ADULT ONLY) 10 MG in SODIUM CHLORIDE 0.9% 50 ML IV ONE (11:00)
[2019-08-12] MEDS: VASOPRESSIN 20 UNIT in SODIUM CHLORIDE 0.9% 100 ML IV SCH ×2 (11:17→22:15)
--- NOTE | 2019-08-12 11:22 | Consultation ---
History of Present Illness - Reason for Consult Consult date: 08/12/19 Hypotension and Hypothermia and Hypoglycemia Requesting physician: JEREMIAS BESS - History of Present Illness 74 y/o previously admitted here in June, discharged on the Jul 11 to inpatient rehab and now lives in [facility] who was sent her by [facility] secondary to lack of urine output. Apparently this was fixed with hewitt placement. However the patient was also hypothermic, hypotensive and hypoglycemic. He required central line placement and vasopressor therapy. He was admitted to the ICU secondary to this. Patient remains unresponsive/altered and hypotensive as well as hypothermic but sugar is better on D5. Patient's white count was 18k on admission and now has risen to 30 just overnight. He was started on LActulose but I stopped this this am. Remainder is obtainable. Patient does have a known history of cirrhosis as seen on imaging during last hospital stay. Past History Past Medical History: other (unable to obtain from patient but reviewed from last hospital stay) Past Surgical History: Other (reviewed from last hospital stay) Social history: other (Currently residing at a personal [facility]. Does have at least 1 daughter) Family history: other (unable to obtain.) Medications and Allergies Allergies Allergy/AdvReac Type Severity Reaction Status Date / Time Unable to Assess Allergy Verified 07/04/19 05:14 Home Medications Medication Instructions Recorded Confirmed Last Taken Type Lactulose [Cephulac] 20 gm PO QDAY #30 oral.liqd 07/11/19 08/11/19 Unknown Rx Pantoprazole [Protonix TAB] 40 mg PO BID #60 tablet 07/11/19 08/11/19 Unknown Rx Rifaximin [Xifaxan] 550 mg PO BID tablet 07/11/19 08/11/19 Unknown Rx Sodium Bicarbonate 1,300 mg PO TID tablet 07/11/19 08/11/19 Unknown Rx oxyCODONE /ACETAMINOPHEN [Percocet 1 tab PO Q6H PRN #7 tablet 07/11/19 08/11/19 Unknown Rx 5/325 mg] Active Meds: Active Medications Dextrose (D50w (25gm) Syringe) 0 ml IV Q30MIN PRN; Protocol PRN Reason: Hypoglycemia Norepinephrine (Levophed Drip 4 Mg/Ns 250 Ml) 4 mg in 250 mls @ 7.5 mls/hr IV TITR FORTINO; Protocol Last Titration: 08/12/19 10:15 Dose: 14 mcg/min, 52.5 mls/hr Documented by: Dextrose/Sodium Chloride (D5/0.45ns) 1,000 mls @ 50 mls/hr IV DIRECT FORTINO Last Admin: 08/12/19 02:20 Dose: 50 mls/hr Documented by: Cefepime HCl (Cefepime/Ns 1 Gm/100 Ml) 1 gm in 100 mls @ 200 mls/hr IV Q24HR FORTINO; Protocol Vasopressin 20 unit/ Sodium (Chloride) 101 mls @ 9.09 mls/hr IV TITR FORTINO; Prot ocol Phytonadione 10 mg/ Sodium (Chloride) 51 mls @ 100 mls/hr IV ONCE ONE Stop: 08/12/19 11:30 Last Admin: 08/12/19 10:40 Dose: 100 mls/hr Documented by: Ondansetron HCl (Zofran) 4 mg IV Q8H PRN PRN Reason: Nausea And Vomiting Sodium Chloride (Sodium Chloride Flush Syringe 10 Ml) 10 ml IV BID FORTINO Last Admin: 08/12/19 10:41 Dose: 10 ml Documented by: Sodium Chloride (Sodium Chloride Flush Syringe 10 Ml) 10 ml IV PRN PRN PRN Reason: LINE FLUSH Review of Systems ROS unobtainable: due to mental status Exam - Constitutional Vitals: Temp Pulse Resp BP Pulse Ox 94.6 F L 68 9 L 69/46 100 08/12/19 08:00 08/12/19 10:00 08/12/19 10:00 08/12/19 10:00 08/12/19 10:00 General appearance: Present: no acute distress, other (Stuporous to comatose) - Neck Neck: Present: supple - Respiratory Respiratory effort: normal Respiratory: bilateral: CTA - Cardiovascular Rhythm: regular Heart Sounds: Present: S1 & S2 - Abdominal Male genitourinary: Present: deferred - Rectal Rectal Exam: deferred Results - Labs CBC & Chem 7: 08/12/19 05:10 08/12/19 05:10 Labs: Abnormal lab results 08/11/19 08/11/19 08/11/19 Range/Units 20:11 20:11 20:11 WBC (4.5-11.0) K/mm3 RBC (3.65-5.03) M/mm3 Hgb (11.8-15.2) gm/dl Hct (35.5-45.6) % RDW (13.2-15.2) % Plt Count (140-440) K/mm3 Seg Neuts % (Manual) (40.0-70.0) % Lymphocytes % (Manual) (13.4-35.0) % Nucleated RBC % (0.0-0.9) % Seg Neutrophils # Man (1.8-7.7) K/mm3 Lymphocytes # (Manual) (1.2-5.4) K/mm3 PT 21.1 H (12.2-14.9) Sec. INR 1.86 H (0.87-1.13) APTT 52.9 H (24.2-36.6) Sec. POC ABG pH (7.35-7.45) POC ABG pCO2 (35-45) Sodium (137-145) mmol/L Potassium (3.6-5.0) mmol/L Carbon Dioxide (22-30) mmol/L BUN (9-20) mg/dL Creatinine (0.8-1.5) mg/dL Glucose (75-100) mg/dL POC Glucose (70-105) Lactic Acid 3.00 H* (0.7-2.0) mmol/L Calcium (8.4-10.2) mg/dL Total Bilirubin (0.1-1.2) mg/dL AST (5-40) units/L Alkaline Phosphatase (35-129) units/L Ammonia (25-60) umol/L Total Creatine Kinase (55-170) units/L CK-MB (CK-2) (0.0-4.0) ng/mL CK-MB (CK-2) Rel Index (0-4) Troponin T 0.086 H (0.00-0.029) ng/mL Total Protein (6.3-8.2) g/dL Albumin (3.9-5) g/dL LDL Cholesterol Direct 140 H (50-130) mg/dL HDL Cholesterol 14 L (40-59) mg/dL Urine WBC (Auto) (0.0-6.0) /HPF Salicylates (2.8-20.0) mg/dL Acetaminophen (10.0-30.0) ug/mL 08/11/19 08/11/19 08/11/19 Range/Units 20:11 20:11 20:11 WBC (4.5-11.0) K/mm3 RBC (3.65-5.03) M/mm3 Hgb (11.8-15.2) gm/dl Hct (35.5-45.6) % RDW (13.2-15.2) % Plt Count (140-440) K/mm3 Seg Neuts % (Manual) (40.0-70.0) % Lymphocytes % (Manual) (13.4-35.0) % Nucleated RBC % (0.0-0.9) % Seg Neutrophils # Man (1.8-7.7) K/mm3 Lymphocytes # (Manual) (1.2-5.4) K/mm3 PT (12.2-14.9) Sec. INR (0.87-1.13) APTT (24.2-36.6) Sec. POC ABG pH (7.35-7.45) POC ABG pCO2 (35-45) Sodium 133 L (137-145) mmol/L Potassium 3.1 L (3.6-5.0) mmol/L Carbon Dioxide 14 L (22-30) mmol/L BUN 79 H (9-20) mg/dL Creatinine 4.5 H (0.8-1.5) mg/dL Glucose 61 L (75-100) mg/dL POC Glucose (70-105) Lactic Acid (0.7-2.0) mmol/L Calcium 7.5 L (8.4-10.2) mg/dL Total Bilirubin 2.10 H (0.1-1.2) mg/dL AST 42 H (5-40) units/L Alkaline Phosphatase 148 H (35-129) units/L Ammonia 106.0 H (25-60) umol/L Total Creatine Kinase 34 L (55-170) units/L CK-MB (CK-2) (0.0-4.0) ng/mL CK-MB (CK-2) Rel Index (0-4) Troponin T (0.00-0.029) ng/mL Total Protein 4.9 L (6.3-8.2) g/dL Albumin 1.6 L (3.9-5) g/dL LDL Cholesterol Direct (50-130) mg/dL HDL Cholesterol (40-59) mg/dL Urine WBC (Auto) (0.0-6.0) /HPF Salicylates < 0.3 L (2.8-20.0) mg/dL Acetaminophen (10.0-30.0) ug/mL 08/11/19 08/11/19 08/11/19 Range/Units 20:11 20:14 22:39 WBC 18.1 H (4.5-11.0) K/mm3 RBC 2.79 L (3.65-5.03) M/mm3 Hgb 8.7 L (11.8-15.2) gm/dl Hct 25.7 L (35.5-45.6) % RDW 26.1 H (13.2-15.2) % Plt Count 72 L (140-440) K/mm3 Seg Neuts % (Manual) 96.0 H (40.0-70.0) % Lymphocytes % (Manual) 3.0 L (13.4-35.0) % Nucleated RBC % (0.0-0.9) % Seg Neutrophils # Man 17.4 H (1.8-7.7) K/mm3 Lymphocytes # (Manual) 0.5 L (1.2-5.4) K/mm3 PT (12.2-14.9) Sec. INR (0.87-1.13) APTT (24.2-36.6) Sec. POC ABG pH (7.35-7.45) POC ABG pCO2 (35-45) Sodium (137-145) mmol/L Potassium (3.6-5.0) mmol/L Carbon Dioxide (22-30) mmol/L BUN (9-20) mg/dL Creatinine (0.8-1.5) mg/dL Glucose (75-100) mg/dL POC Glucose 124 H (70-105) Lactic Acid (0.7-2.0) mmol/L Calcium (8.4-10.2) mg/dL Total Bilirubin (0.1-1.2) mg/dL AST (5-40) units/L Alkaline Phosphatase (35-129) units/L Ammonia (25-60) umol/L Total Creatine Kinase (55-170) units/L CK-MB (CK-2) (0.0-4.0) ng/mL CK-MB (CK-2) Rel Index (0-4) Troponin T (0.00-0.029) ng/mL Total Protein (6.3-8.2) g/dL Albumin (3.9-5) g/dL LDL Cholesterol Direct (50-130) mg/dL HDL Cholesterol (40-59) mg/dL Urine WBC (Auto) (0.0-6.0) /HPF Salicylates (2.8-20.0) mg/dL Acetaminophen < 5.0 L (10.0-30.0) ug/mL 08/11/19 08/12/19 08/12/19 Range/Units 22:54 00:54 00:54 WBC (4.5-11.0) K/mm3 RBC (3.65-5.03) M/mm3 Hgb (11.8-15.2) gm/dl Hct (35.5-45.6) % RDW (13.2-15.2) % Plt Count (140-440) K/mm3 Seg Neuts % (Manual) (40.0-70.0) % Lymphocytes % (Manual) (13.4-35.0) % Nucleated RBC % (0.0-0.9) % Seg Neutrophils # Man (1.8-7.7) K/mm3 Lymphocytes # (Manual) (1.2-5.4) K/mm3 PT (12.2-14.9) Sec. INR (0.87-1.13) APTT (24.2-36.6) Sec. POC ABG pH (7.35-7.45) POC ABG pCO2 (35-45) Sodium (137-145) mmol/L Potassium (3.6-5.0) mmol/L Carbon Dioxide (22-30) mmol/L BUN (9-20) mg/dL Creatinine (0.8-1.5) mg/dL Glucose (75-100) mg/dL POC Glucose (70-105) Lactic Acid 2.70 H* 2.90 H* (0.7-2.0) mmol/L Calcium (8.4-10.2) mg/dL Total Bilirubin (0.1-1.2) mg/dL AST (5-40) units/L Alkaline Phosphatase (35-129) units/L Ammonia (25-60) umol/L Total Creatine Kinase 44 L (55-170) units/L CK-MB (CK-2) 7.5 H (0.0-4.0) ng/mL CK-MB (CK-2) Rel Index 17.0 H (0-4) Troponin T 0.080 H (0.00-0.029) ng/mL Total Protein (6.3-8.2) g/dL Albumin (3.9-5) g/dL LDL Cholesterol Direct (50-130) mg/dL HDL Cholesterol (40-59) mg/dL Urine WBC (Auto) (0.0-6.0) /HPF Salicylates (2.8-20.0) mg/dL Acetaminophen (10.0-30.0) ug/mL 08/12/19 08/12/19 08/12/19 Range/Units 02:12 02:42 05:10 WBC 34.3 H (4.5-11.0) K/mm3 RBC 3.11 L (3.65-5.03) M/mm3 Hgb 9.5 L (11.8-15.2) gm/dl Hct 29.1 L (35.5-45.6) % RDW 26.9 H (13.2-15.2) % Plt Count 95 L (140-440) K/mm3 Seg Neuts % (Manual) 99.0 H (40.0-70.0) % Lymphocytes % (Manual) 0 L (13.4-35.0) % Nucleated RBC % 1.0 H (0.0-0.9) % Seg Neutrophils # Man 34.0 H (1.8-7.7) K/mm3 Lymphocytes # (Manual) 0.0 L (1.2-5.4) K/mm3 PT (12.2-14.9) Sec. INR (0.87-1.13) APTT (24.2-36.6) Sec. POC ABG pH (7.35-7.45) POC ABG pCO2 (35-45) Sodium (137-145) mmol/L Potassium (3.6-5.0) mmol/L Carbon Dioxide (22-30) mmol/L BUN (9-20) mg/dL Creatinine (0.8-1.5) mg/dL Glucose (75-100) mg/dL POC Glucose 168 H (70-105) Lactic Acid (0.7-2.0) mmol/L Calcium (8.4-10.2) mg/dL Total Bilirubin (0.1-1.2) mg/dL AST (5-40) units/L Alkaline Phosphatase (35-129) units/L Ammonia (25-60) umol/L Total Creatine Kinase (55-170) units/L CK-MB (CK-2) (0.0-4.0) ng/mL CK-MB (CK-2) Rel Index (0-4) Troponin T (0.00-0.029) ng/mL Total Protein (6.3-8.2) g/dL Albumin (3.9-5) g/dL LDL Cholesterol Direct (50-130) mg/dL HDL Cholesterol (40-59) mg/dL Urine WBC (Auto) > 182.0 H (0.0-6.0) /HPF Salicylates (2.8-20.0) mg/dL Acetaminophen (10.0-30.0) ug/mL 08/12/19 08/12/19 08/12/19 Range/Units 05:10 05:10 05:10 WBC (4.5-11.0) K/mm3 RBC (3.65-5.03) M/mm3 Hgb (11.8-15.2) gm/dl Hct (35.5-45.6) % RDW (13.2-15.2) % Plt Count (140-440) K/mm3 Seg Neuts % (Manual) (40.0-70.0) % Lymphocytes % (Manual) (13.4-35.0) % Nucleated RBC % (0.0-0.9) % Seg Neutrophils # Man (1.8-7.7) K/mm3 Lymphocytes # (Manual) (1.2-5.4) K/mm3 PT 22.4 H (12.2-14.9) Sec. INR 2.01 H (0.87-1.13) APTT 55.3 H (24.2-36.6) Sec. POC ABG pH (7.35-7.45) POC ABG pCO2 (35-45) Sodium 134 L (137-145) mmol/L Potassium 3.5 L (3.6-5.0) mmol/L Carbon Dioxide 17 L (22-30) mmol/L BUN 74 H (9-20) mg/dL Creatinine 4.3 H (0.8-1.5) mg/dL Glucose 161 H (75-100) mg/dL POC Glucose (70-105) Lactic Acid (0.7-2.0) mmol/L Calcium 7.1 L (8.4-10.2) mg/dL Total Bilirubin 2.50 H (0.1-1.2) mg/dL AST 46 H (5-40) units/L Alkaline Phosphatase 175 H (35-129) units/L Ammonia (25-60) umol/L Total Creatine Kinase 44 L (55-170) units/L CK-MB (CK-2) 8.3 H (0.0-4.0) ng/mL CK-MB (CK-2) Rel Index 18.8 H (0-4) Troponin T 0.077 H (0.00-0.029) ng/mL Total Protein 5.5 L (6.3-8.2) g/dL Albumin 1.8 L (3.9-5) g/dL LDL Cholesterol Direct (50-130) mg/dL HDL Cholesterol (40-59) mg/dL Urine WBC (Auto) (0.0-6.0) /HPF Salicylates (2.8-20.0) mg/dL Acetaminophen (10.0-30.0) ug/mL 08/12/19 08/12/19 08/12/19 Range/Units 05:10 05:28 06:15 WBC (4.5-11.0) K/mm3 RBC (3.65-5.03) M/mm3 Hgb (11.8-15.2) gm/dl Hct (35.5-45.6) % RDW (13.2-15.2) % Plt Count (140-440) K/mm3 Seg Neuts % (Manual) (40.0-70.0) % Lymphocytes % (Manual) (13.4-35.0) % Nucleated RBC % (0.0-0.9) % Seg Neutrophils # Man (1.8-7.7) K/mm3 Lymphocytes # (Manual) (1.2-5.4) K/mm3 PT (12.2-14.9) Sec. INR (0.87-1.13) APTT (24.2-36.6) Sec. POC ABG pH (7.35-7.45) POC ABG pCO2 (35-45) Sodium (137-145) mmol/L Potassium (3.6-5.0) mmol/L Carbon Dioxide (22-30) mmol/L BUN (9-20) mg/dL Creatinine (0.8-1.5) mg/dL Glucose (75-100) mg/dL POC Glucose 174 H (70-105) Lactic Acid 2.60 H* (0.7-2.0) mmol/L Calcium (8.4-10.2) mg/dL Total Bilirubin (0.1-1.2) mg/dL AST (5-40) units/L Alkaline Phosphatase (35-129) units/L Ammonia 66.0 H (25-60) umol/L Total Creatine Kinase (55-170) units/L CK-MB (CK-2) (0.0-4.0) ng/mL CK-MB (CK-2) Rel Index (0-4) Troponin T (0.00-0.029) ng/mL Total Protein (6.3-8.2) g/dL Albumin (3.9-5) g/dL LDL Cholesterol Direct (50-130) mg/dL HDL Cholesterol (40-59) mg/dL Urine WBC (Auto) (0.0-6.0) /HPF Salicylates (2.8-20.0) mg/dL Acetaminophen (10.0-30.0) ug/mL 08/12/19 08/12/19 08/12/19 Range/Units 06:15 09:52 10:37 WBC (4.5-11.0) K/mm3 RBC (3.65-5.03) M/mm3 Hgb (11.8-15.2) gm/dl Hct (35.5-45.6) % RDW (13.2-15.2) % Plt Count (140-440) K/mm3 Seg Neuts % (Manual) (40.0-70.0) % Lymphocytes % (Manual) (13.4-35.0) % Nucleated RBC % (0.0-0.9) % Seg Neutrophils # Man (1.8-7.7) K/mm3 Lymphocytes # (Manual) (1.2-5.4) K/mm3 PT (12.2-14.9) Sec. INR (0.87-1.13) APTT (24.2-36.6) Sec. POC ABG pH 7.332 L (7.35-7.45) POC ABG pCO2 28.3 L (35-45) Sodium (137-145) mmol/L Potassium (3.6-5.0) mmol/L Carbon Dioxide (22-30) mmol/L BUN (9-20) mg/dL Creatinine (0.8-1.5) mg/dL Glucose (75-100) mg/dL POC Glucose 223 H (70-105) Lactic Acid 2.90 H* (0.7-2.0) mmol/L Calcium (8.4-10.2) mg/dL Total Bilirubin (0.1-1.2) mg/dL AST (5-40) units/L Alkaline Phosphatase (35-129) units/L Ammonia (25-60) umol/L Total Creatine Kinase (55-170) units/L CK-MB (CK-2) (0.0-4.0) ng/mL CK-MB (CK-2) Rel Index (0-4) Troponin T (0.00-0.029) ng/mL Total Protein (6.3-8.2) g/dL Albumin (3.9-5) g/dL LDL Cholesterol Direct (50-130) mg/dL HDL Cholesterol (40-59) mg/dL Urine WBC (Auto) (0.0-6.0) /HPF Salicylates (2.8-20.0) mg/dL Acetaminophen (10.0-30.0) ug/mL - Imaging and Cardiology Chest x-ray: image reviewed CT Scan - head: report reviewed Assessment and Plan 74 y/o male admitted with altered mental state, hypotension, hypothermia and hypoglycemia. 1. Agree with broad spec abx. Likely out of the window to do LP. Head CT was normal. Will obtain EEG to rule out nonconvulsive status. Large increase in white count as well. Will send sample for C. Diff as well. I have stopped lactulose, just like last time given the patient is hypotensive. Diarrhea could make this worse, despite what his ammonia level is. Follow up cultures from blood and urine. Both could be possible sources. 2. STat ABG does not show hypercarbia and good Oxygen sats are seen. Will wean Venti-mask. 3. Will place Dobb shazia and restart all home medications with the exception of lactulose and percocets. 4. Strict I/O's 5. Added Vasopressin as patient likely has a component of hepatorenal syndrome. Will attempt to wean levophed first. Follow up renal recommendations 6. Patient also coagulopathic. Will given IV vitamin K 10 x 1. Overall prognosis is guarded. Patient presented very similar in June and rebounded well. Hopefully this can happen again. However multiple insults like this will be harder to bounce back from each time they happen. Especially so close in proximity. CCT 31 minutes.
[2019-08-12] MEDS ORDERED: SODIUM CHLORIDE 0.9% 500 ML 500 ML IV ONE (11:37)
--- NOTE | 2019-08-12 13:31 | Consultation ---
History of Present Illness - Reason for Consult Consult date: 08/12/19 Sepsis Requesting physician: ASHLEY SERRANO - History of Present Illness The patient is a 74-year-old male with extensive alcohol abuse, alcoholic cirrhosis, decubitus ulcers, recent hospitalization when he was found to be septic with shock and encephalopathy. No obvious infectious source was iden tified and he was treated with a course of cefepime. He was sent to the emergency room [facility] yesterday due to him not producing any urine. Here, patient was noted to be hypothermic, hypotensive and in shock. Also with AMS. No report of diarrhea coming in per RN. Currently on 2 pressors: levophed and vasopressin. Encephalopathic, unable to provide history. Review of Systems: Encephalopathic, unable to provide ROS Past History Past Medical History: other (unable to obtain from patient but reviewed from [facility] hospital stay) Past Surgical History: Other (reviewed from last hospital stay) Social history: other (Currently residing [facility] a personal jail. Does have at least 1 daughter) Family history: other (unable to obtain.) Medications and Allergies Allergies Allergy/AdvReac Type Severity Reaction Status Date / Time Unable to Assess Allergy Verified 07/04/19 05:14 Home Medications Medication Instructions Recorded Confirmed Last Taken Type Lactulose [Cephulac] 20 gm PO QDAY #30 oral.liqd 07/11/19 08/11/19 Unknown Rx Pantoprazole [Protonix TAB] 40 mg PO BID #60 tablet 07/11/19 08/11/19 Unknown Rx Rifaximin [Xifaxan] 550 mg PO BID tablet 07/11/19 08/11/19 Unknown Rx Sodium Bicarbonate 1,300 mg PO TID tablet 07/11/19 08/11/19 Unknown Rx oxyCODONE /ACETAMINOPHEN [Percocet 1 tab PO Q6H PRN #7 tablet 07/11/19 08/11/19 Unknown Rx 5/325 mg] Active Meds: Active Medications Dextrose (D50w (25gm) Syringe) 0 ml IV Q30MIN PRN; Protocol PRN Reason: Hypoglycemia Norepinephrine (Levophed Drip 4 Mg/Ns 250 Ml) 4 mg in 250 mls @ 7.5 mls/hr IV TITR FORTINO; Protocol Last Admin: 08/12/19 12:39 Dose: 16 mcg/min, 60 mls/hr Documented by: Dextrose/Sodium Chloride (D5/0.45ns) 1,000 mls @ 50 mls/hr IV DIRECT FORTINO Last Admin: 08/12/19 02:20 Dose: 50 mls/hr Documented by: Cefepime HCl (Cefepime/Ns 1 Gm/100 Ml) 1 gm in 100 mls @ 200 mls/hr IV Q24HR FORTINO; Protocol Vasopressin 20 unit/ Sodium (Chloride) 101 mls @ 9.09 mls/hr IV TITR FORTINO; Protocol Last Admin: 08/12/19 11:17 Dose: 0.03 units/min, 9.09 mls/hr Documented by: Ondansetron HCl (Zofran) 4 mg IV Q8H PRN PRN Reason: Nausea And Vomiting Sodium Chloride (Sodium Chloride Flush Syringe 10 Ml) 10 ml IV BID FORTINO Last Admin: 08/12/19 10:41 Dose: 10 ml Documented by: Sodium Chloride (Sodium Chloride Flush Syringe 10 Ml) 10 ml IV PRN PRN PRN Reason: LINE FLUSH Physical Examination - Physical Exam Narrative exam: Physical Exam: Constitutional: awake, but encephalopathic Head, Ears, Nose: Normocephalic, atraumatic. External ears, nose normal Eyes: Conjunctivae/corneas clear. No icterus. No ptosis. Neck: Supple, no meningeal signs Cardiovascular: S1, S2 normal. Respiratory: Good air entry, clear to auscultation bilaterally GI: Soft, non-tender; bowel sounds normal. No peritoneal signs Musculoskeletal: anasarca + Skin: extensive skin tears, purpuric areas on skin Hem/Lymphatic: No palpable cervical or supraclavicular nodes. No lymphangitis Psych: confused, not agitated Neurological: awake, but encephalopathic Lines: Hewitt, central line - Constitutional Vitals: Vital Signs Temp Pulse Resp BP Pulse Ox 90.2 F L 68 9 L 69/46 100 08/12/19 12:00 08/12/19 10:00 08/12/19 10:00 08/12/19 10:00 08/12/19 10:00 Temperature -Last 24 Hours Temperature 90.2 F Temperature 94.6 F Temperature 97.2 F Temperature 96.8 F Temperature 96.8 F Results - Labs CBC & Chem 7: 08/12/19 05:10 08/12/19 05:10 Labs: Abnormal lab results 08/11/19 08/11/19 08/11/19 Range/Units 20:11 20:11 20:11 WBC (4.5-11.0) K/mm3 RBC (3.65-5.03) M/mm3 Hgb (11.8-15.2) gm/dl Hct (35.5-45.6) % RDW (13.2-15.2) % Plt Count (140-440) K/mm3 Seg Neuts % (Manual) (40.0-70.0) % Lymphocytes % (Manual) (13.4-35.0) % Nucleated RBC % (0.0-0.9) % Seg Neutrophils # Man (1.8-7.7) K/mm3 Lymphocytes # (Manual) (1.2-5.4) K/mm3 PT 21.1 H (12.2-14.9) Sec. INR 1.86 H (0.87-1.13) APTT 52.9 H (24.2-36.6) Sec. POC ABG pH (7.35-7.45) POC ABG pCO2 (35-45) Sodium (137-145) mmol/L Potassium (3.6-5.0) mmol/L Carbon Dioxide (22-30) mmol/L BUN (9-20) mg/dL Creatinine (0.8-1.5) mg/dL Glucose (75-100) mg/dL POC Glucose (70-105) Lactic Acid 3.00 H* (0.7-2.0) mmol/L Calcium (8.4-10.2) mg/dL Total Bilirubin (0.1-1.2) mg/dL AST (5-40) units/L Alkaline Phosphatase (35-129) units/L Ammonia (25-60) umol/L Total Creatine Kinase (55-170) units/L CK-MB (CK-2) (0.0-4.0) ng/mL CK-MB (CK-2) Rel Index (0-4) Troponin T 0.086 H (0.00-0.029) ng/mL Total Protein (6.3-8.2) g/dL Albumin (3.9-5) g/dL LDL Cholesterol Direct 140 H (50-130) mg/dL HDL Cholesterol 14 L (40-59) mg/dL Urine WBC (Auto) (0.0-6.0) /HPF Salicylates (2.8-20.0) mg/dL Acetaminophen (10.0-30.0) ug/mL 08/11/19 08/11/19 08/11/19 Range/Units 20:11 20:11 20:11 WBC (4.5-11.0) K/mm3 RBC (3.65-5.03) M/mm3 Hgb (11.8-15.2) gm/dl Hct (35.5-45.6) % RDW (13.2-15.2) % Plt Count (140-440) K/mm3 Seg Neuts % (Manual) (40.0-70.0) % Lymphocytes % (Manual) (13.4-35.0) % Nucleated RBC % (0.0-0.9) % Seg Neutrophils # Man (1.8-7.7) K/mm3 Lymphocytes # (Manual) (1.2-5.4) K/mm3 PT (12.2-14.9) Sec. INR (0.87-1.13) APTT (24.2-36.6) Sec. POC ABG pH (7.35-7.45) POC ABG pCO2 (35-45) Sodium 133 L (137-145) mmol/L Potassium 3.1 L (3.6-5.0) mmol/L Carbon Dioxide 14 L (22-30) mmol/L BUN 79 H (9-20) mg/dL Creatinine 4.5 H (0.8-1.5) mg/dL Glucose 61 L (75-100) mg/dL POC Glucose (70-105) Lactic Acid (0.7-2.0) mmol/L Calcium 7.5 L (8.4-10.2) mg/dL Total Bilirubin 2.10 H (0.1-1.2) mg/dL AST 42 H (5-40) units/L Alkaline Phosphatase 148 H (35-129) units/L Ammonia 106.0 H (25-60) umol/L Total Creatine Kinase 34 L (55-170) units/L CK-MB (CK-2) (0.0-4.0) ng/mL CK-MB (CK-2) Rel Index (0-4) Troponin T (0.00-0.029) ng/mL Total Protein 4.9 L (6.3-8.2) g/dL Albumin 1.6 L (3.9-5) g/dL LDL Cholesterol Direct (50-130) mg/dL HDL Cholesterol (40-59) mg/dL Urine WBC (Auto) (0.0-6.0) /HPF Salicylates < 0.3 L (2.8-20.0) mg/dL Acetaminophen (10.0-30.0) ug/mL 08/11/19 08/11/19 08/11/19 Range/Units 20:11 20:14 22:39 WBC 18.1 H (4.5-11.0) K/mm3 RBC 2.79 L (3.65-5.03) M/mm3 Hgb 8.7 L (11.8-15.2) gm/dl Hct 25.7 L (35.5-45.6) % RDW 26.1 H (13.2-15.2) % Plt Count 72 L (140-440) K/mm3 Seg Neuts % (Manual) 96.0 H (40.0-70.0) % Lymphocytes % (Manual) 3.0 L (13.4-35.0) % Nucleated RBC % (0.0-0.9) % Seg Neutrophils # Man 17.4 H (1.8-7.7) K/mm3 Lymphocytes # (Manual) 0.5 L (1.2-5.4) K/mm3 PT (12.2-14.9) Sec. INR (0.87-1.13) APTT (24.2-36.6) Sec. POC ABG pH (7.35-7.45) POC ABG pCO2 (35-45) Sodium (137-145) mmol/L Potassium (3.6-5.0) mmol/L Carbon Dioxide (22-30) mmol/L BUN (9-20) mg/dL Creatinine (0.8-1.5) mg/dL Glucose (75-100) mg/dL POC Glucose 124 H (70-105) Lactic Acid (0.7-2.0) mmol/L Calcium (8.4-10.2) mg/dL Total Bilirubin (0.1-1.2) mg/dL AST (5-40) units/L Alkaline Phosphatase (35-129) units/L Ammonia (25-60) umol/L Total Creatine Kinase (55-170) units/L CK-MB (CK-2) (0.0-4.0) ng/mL CK-MB (CK-2) Rel Index (0-4) Troponin T (0.00-0.029) ng/mL Total Protein (6.3-8.2) g/dL Albumin (3.9-5) g/dL LDL Cholesterol Direct (50-130) mg/dL HDL Cholesterol (40-59) mg/dL Urine WBC (Auto) (0.0-6.0) /HPF Salicylates (2.8-20.0) mg/dL Acetaminophen < 5.0 L (10.0-30.0) ug/mL 08/11/19 08/12/19 08/12/19 Range/Units 22:54 00:54 00:54 WBC (4.5-11.0) K/mm3 RBC (3.65-5.03) M/mm3 Hgb (11.8-15.2) gm/dl Hct (35.5-45.6) % RDW (13.2-15.2) % Plt Count (140-440) K/mm3 Seg Neuts % (Manual) (40.0-70.0) % Lymphocytes % (Manual) (13.4-35.0) % Nucleated RBC % (0.0-0.9) % Seg Neutrophils # Man (1.8-7.7) K/mm3 Lymphocytes # (Manual) (1.2-5.4) K/mm3 PT (12.2-14.9) Sec. INR (0.87-1.13) APTT (24.2-36.6) Sec. POC ABG pH (7.35-7.45) POC ABG pCO2 (35-45) Sodium (137-145) mmol/L Potassium (3.6-5.0) mmol/L Carbon Dioxide (22-30) mmol/L BUN (9-20) mg/dL Creatinine (0.8-1.5) mg/dL Glucose (75-100) mg/dL POC Glucose (70-105) Lactic Acid 2.70 H* 2.90 H* (0.7-2.0) mmol/L Calcium (8.4-10.2) mg/dL Total Bilirubin (0.1-1.2) mg/dL AST (5-40) units/L Alkaline Phosphatase (35-129) units/L Ammonia (25-60) umol/L Total Creatine Kinase 44 L (55-170) units/L CK-MB (CK-2) 7.5 H (0.0-4.0) ng/mL CK-MB (CK-2) Rel Index 17.0 H (0-4) Troponin T 0.080 H (0.00-0.029) ng/mL Total Protein (6.3-8.2) g/dL Albumin (3.9-5) g/dL LDL Cholesterol Direct (50-130) mg/dL HDL Cholesterol (40-59) mg/dL Urine WBC (Auto) (0.0-6.0) /HPF Salicylates (2.8-20.0) mg/dL Acetaminophen (10.0-30.0) ug/mL 08/12/19 08/12/19 08/12/19 Range/Units 02:12 02:42 05:10 WBC 34.3 H (4.5-11.0) K/mm3 RBC 3.11 L (3.65-5.03) M/mm3 Hgb 9.5 L (11.8-15.2) gm/dl Hct 29.1 L (35.5-45.6) % RDW 26.9 H (13.2-15.2) % Plt Count 95 L (140-440) K/mm3 Seg Neuts % (Manual) 99.0 H (40.0-70.0) % Lymphocytes % (Manual) 0 L (13.4-35.0) % Nucleated RBC % 1.0 H (0.0-0.9) % Seg Neutrophils # Man 34.0 H (1.8-7.7) K/mm3 Lymphocytes # (Manual) 0.0 L (1.2-5.4) K/mm3 PT (12.2-14.9) Sec. INR (0.87-1.13) APTT (24.2-36.6) Sec. POC ABG pH (7.35-7.45) POC ABG pCO2 (35-45) Sodium (137-145) mmol/L Potassium (3.6-5.0) mmol/L Carbon Dioxide (22-30) mmol/L BUN (9-20) mg/dL Creatinine (0.8-1.5) mg/dL Glucose (75-100) mg/dL POC Glucose 168 H (70-105) Lactic Acid (0.7-2.0) mmol/L Calcium (8.4-10.2) mg/dL Total Bilirubin (0.1-1.2) mg/dL AST (5-40) units/L Alkaline Phosphatase (35-129) units/L Ammonia (25-60) umol/L Total Creatine Kinase (55-170) units/L CK-MB (CK-2) (0.0-4.0) ng/mL CK-MB (CK-2) Rel Index (0-4) Troponin T (0.00-0.029) ng/mL Total Protein (6.3-8.2) g/dL Albumin (3.9-5) g/dL LDL Cholesterol Direct (50-130) mg/dL HDL Cholesterol (40-59) mg/dL Urine WBC (Auto) > 182.0 H (0.0-6.0) /HPF Salicylates (2.8-20.0) mg/dL Acetaminophen (10.0-30.0) ug/mL 08/12/19 08/12/19 08/12/19 Range/Units 05:10 05:10 05:10 WBC (4.5-11.0) K/mm3 RBC (3.65-5.03) M/mm3 Hgb (11.8-15.2) gm/dl Hct (35.5-45.6) % RDW (13.2-15.2) % Plt Count (140-440) K/mm3 Seg Neuts % (Manual) (40.0-70.0) % Lymphocytes % (Manual) (13.4-35.0) % Nucleated RBC % (0.0-0.9) % Seg Neutrophils # Man (1.8-7.7) K/mm3 Lymphocytes # (Manual) (1.2-5.4) K/mm3 PT 22.4 H (12.2-14.9) Sec. INR 2.01 H (0.87-1.13) APTT 55.3 H (24.2-36.6) Sec. POC ABG pH (7.35-7.45) POC ABG pCO2 (35-45) Sodium 134 L (137-145) mmol/L Potassium 3.5 L (3.6-5.0) mmol/L Carbon Dioxide 17 L (22-30) mmol/L BUN 74 H (9-20) mg/dL Creatinine 4.3 H (0.8-1.5) mg/dL Glucose 161 H (75-100) mg/dL POC Glucose (70-105) Lactic Acid (0.7-2.0) mmol/L Calcium 7.1 L (8.4-10.2) mg/dL Total Bilirubin 2.50 H (0.1-1.2) mg/dL AST 46 H (5-40) units/L Alkaline Phosphatase 175 H (35-129) units/L Ammonia (25-60) umol/L Total Creatine Kinase 44 L (55-170) units/L CK-MB (CK-2) 8.3 H (0.0-4.0) ng/mL CK-MB (CK-2) Rel Index 18.8 H (0-4) Troponin T 0.077 H (0.00-0.029) ng/mL Total Protein 5.5 L (6.3-8.2) g/dL Albumin 1.8 L (3.9-5) g/dL LDL Cholesterol Direct (50-130) mg/dL HDL Cholesterol (40-59) mg/dL Urine WBC (Auto) (0.0-6.0) /HPF Salicylates (2.8-20.0) mg/dL Acetaminophen (10.0-30.0) ug/mL 08/12/19 08/12/19 08/12/19 Range/Units 05:10 05:28 06:15 WBC (4.5-11.0) K/mm3 RBC (3.65-5.03) M/mm3 Hgb (11.8-15.2) gm/dl Hct (35.5-45.6) % RDW (13.2-15.2) % Plt Count (140-440) K/mm3 Seg Neuts % (Manual) (40.0-70.0) % Lymphocytes % (Manual) (13.4-35.0) % Nucleated RBC % (0.0-0.9) % Seg Neutrophils # Man (1.8-7.7) K/mm3 Lymphocytes # (Manual) (1.2-5.4) K/mm3 PT (12.2-14.9) Sec. INR (0.87-1.13) APTT (24.2-36.6) Sec. POC ABG pH (7.35-7.45) POC ABG pCO2 (35-45) Sodium (137-145) mmol/L Potassium (3.6-5.0) mmol/L Carbon Dioxide (22-30) mmol/L BUN (9-20) mg/dL Creatinine (0.8-1.5) mg/dL Glucose (75-100) mg/dL POC Glucose 174 H (70-105) Lactic Acid 2.60 H* (0.7-2.0) mmol/L Calcium (8.4-10.2) mg/dL Total Bilirubin (0.1-1.2) mg/dL AST (5-40) units/L Alkaline Phosphatase (35-129) units/L Ammonia 66.0 H (25-60) umol/L Total Creatine Kinase (55-170) units/L CK-MB (CK-2) (0.0-4.0) ng/mL CK-MB (CK-2) Rel Index (0-4) Troponin T (0.00-0.029) ng/mL Total Protein (6.3-8.2) g/dL Albumin (3.9-5) g/dL LDL Cholesterol Direct (50-130) mg/dL HDL Cholesterol (40-59) mg/dL Urine WBC (Auto) (0.0-6.0) /HPF Salicylates (2.8-20.0) mg/dL Acetaminophen (10.0-30.0) ug/mL 08/12/19 08/12/19 08/12/19 Range/Units 06:15 09:52 10:37 WBC (4.5-11.0) K/mm3 RBC (3.65-5.03) M/mm3 Hgb (11.8-15.2) gm/dl Hct (35.5-45.6) % RDW (13.2-15.2) % Plt Count (140-440) K/mm3 Seg Neuts % (Manual) (40.0-70.0) % Lymphocytes % (Manual) (13.4-35.0) % Nucleated RBC % (0.0-0.9) % Seg Neutrophils # Man (1.8-7.7) K/mm3 Lymphocytes # (Manual) (1.2-5.4) K/mm3 PT (12.2-14.9) Sec. INR (0.87-1.13) APTT (24.2-36.6) Sec. POC ABG pH 7.332 L (7.35-7.45) POC ABG pCO2 28.3 L (35-45) Sodium (137-145) mmol/L Potassium (3.6-5.0) mmol/L Carbon Dioxide (22-30) mmol/L BUN (9-20) mg/dL Creatinine (0.8-1.5) mg/dL Glucose (75-100) mg/dL POC Glucose 223 H (70-105) Lactic Acid 2.90 H* (0.7-2.0) mmol/L Calcium (8.4-10.2) mg/dL Total Bilirubin (0.1-1.2) mg/dL AST (5-40) units/L Alkaline Phosphatase (35-129) units/L Ammonia (25-60) umol/L Total Creatine Kinase (55-170) units/L CK-MB (CK-2) (0.0-4.0) ng/mL CK-MB (CK-2) Rel Index (0-4) Troponin T (0.00-0.029) ng/mL Total Protein (6.3-8.2) g/dL Albumin (3.9-5) g/dL LDL Cholesterol Direct (50-130) mg/dL HDL Cholesterol (40-59) mg/dL Urine WBC (Auto) (0.0-6.0) /HPF Salicylates (2.8-20.0) mg/dL Acetaminophen (10.0-30.0) ug/mL - Imaging and Cardiology Chest x-ray: report reviewed, image reviewed (b/l pleural effusions) Assessment and Plan Cultures: 08/11/2019 blood culture: In progress A/P: 74-year-old male with extensive alcohol abuse, alcoholic cirrhosis, decubitus ulcers, recent hospitalization, now admitted with #Shock, hypothermia, likely septic: etiology unclear. Possibly urine given significant pyuria. Also should eval for SBP if he has ascites on US. Concern for Gram negative sepsis. #UTI: now has hewitt placed. #Lactic acidosis #Acute renal failure #Thrombocytopenia #H/O alcohol abuse #Multiple skin tears, malnutrition: recommend wound care Recs: switched Cefepime to IV Meropenem renally adjusted (recently completed empiric Cefepime course) follow up blood and urine cultures ordered abdominal US started IV Vancomycin with renal dosing Sherry Knight MD, FACP [facility] ([facility] C: [phone] O: [phone] F: [phone]
[2019-08-12] MEDS ORDERED: VANCOMYCIN PHARMACY TO DOSE IV SCH (14:00)
--- NOTE | 2019-08-12 14:50 | Progress Note ---
Assessment and Plan Septic Shock likely due to UTI Acute Renal Failure Acute Hepatic Encephalopathy Abnormal cadiac enzymes/NSTEMI type II Hypoglycemia Anemia of chronic disease Thrombocytopenia Hyponatremia Hypokalemia Cirrhosis of liver Coagulopathy Severe protein calorie malnutrition Multiple different stages decubitus pressure ulcers Plan Continue to monitor at critical care Continue IV fluid, IV cefepime, iv levophed drip, status post Zyvox given in the ER, critical care consulted cont lactulose, follow ammonia level, follow cultures, consult ID, consult nephrology Follow cardiac enzymes, monitor vitals, patient has preserved EF based on 2-D echocardiogram 06/2019 Monitor CBC CMP, replete electrolytes as needed, wound care management DVT prophalaxis with SCD Full CODE STATUS, very poor prognosis The high probability of a clinically significant, sudden or life threatening deterioration of the [multiple] system(s) required my full and direct attention, intervention and personal management. The aggregate critical care time was [35] minutes. This time is in addition to time spent performing reported procedures but includes the following: [x] Data Review and interpretation [x] Patient assessment and monitoring of vital signs [x] Documentation [x] Medication orders and management Hospitalist Physical exam: GENERAL: Elderly debilitated confused white male lying on bed HEENT: Normocephalic. Atraumatic. No conjunctival congestion or icterus. Patient has dry mucous membranes. NECK: Supple. Trachea midline. CHEST/LUNGS: Coarse breath sounds auscultated bilaterally, breathing slightly labored. HEART/CARDIOVASCULAR: Regular in rate and rhythm. S1 and S2 positive. ABDOMEN: Abdomen is soft, nontender. Patient has normal bowel sounds. SKIN: Multiple pressure ulcer all over the body, cold NEURO: Does not Follow command. MUSCULOSKELETAL: No joint effusion or tenderness. EXTRIMITY: + edema, no cyanosis or clubbing. PSYCH: Unable to assess Subjective Date of service: 08/12/19 Interval history: Patient seen and examined. Medical records and medication list reviewed. No acute event overnight noted by the RN. Patient remained on pressor and confused Discussed plan of care at bedside with patient's RN. Getting wound care at bedside Objective - Constitutional Vitals: Vital Signs - 12hr 08/12/19 08/12/19 08/12/19 03:00 03:15 03:30 Temperature Pulse Rate Pulse Rate [ From Monitor] Pulse Rate [ 82 69 69 None] Respiratory 12 10 L 10 L Rate Blood Pressure 94/55 93/46 O2 Sat by Pulse 100 100 100 Oximetry 08/12/19 08/12/19 08/12/19 03:37 03:45 04:00 Temperature 97.2 F L Pulse Rate Pulse Rate [ 78 From Monitor] Pulse Rate [ 70 None] Respiratory 10 L 12 Rate Blood Pressure 83/44 O2 Sat by Pulse 100 100 Oximetry 08/12/19 08/12/19 08/12/19 04:45 05:00 05:15 Temperature Pulse Rate Pulse Rate [ From Monitor] Pulse Rate [ 72 73 75 None] Respiratory 10 L 10 L 9 L Rate Blood Pressure 99/60 96/58 95/56 O2 Sat by Pulse 100 100 100 Oximetry 08/12/19 08/12/19 08/12/19 05:30 05:45 06:00 Temperature Pulse Rate Pulse Rate [ From Monitor] Pulse Rate [ 71 68 73 None] Respiratory 9 L 9 L 9 L Rate Blood Pressure 92/54 90/57 O2 Sat by Pulse 100 100 100 Oximetry 08/12/19 08/12/19 08/12/19 06:15 06:30 06:45 Temperature Pulse Rate Pulse Rate [ From Monitor] Pulse Rate [ 83 80 84 None] Respiratory 10 L 10 L 10 L Rate Blood Pressure O2 Sat by Pulse 100 100 100 Oximetry 08/12/19 08/12/19 08/12/19 07:00 07:15 07:19 Temperature Pulse Rate 84 Pulse Rate [ From Monitor] Pulse Rate [ 81 84 None] Respiratory 10 L 11 L 11 L Rate Blood Pressure 134/114 177/142 156/131 O2 Sat by Pulse 100 100 Oximetry 08/12/19 08/12/19 08/12/19 07:30 07:48 07:50 Temperature Pulse Rate 79 87 74 Pulse Rate [ From Monitor] Pulse Rate [ 73 None] Respiratory 10 L 15 12 Rate Blood Pressure 156/131 O2 Sat by Pulse 100 100 98 Oximetry 08/12/19 08/12/19 08/12/19 07:56 08:00 08:15 Temperature 94.6 F L Pulse Rate 79 74 73 Pulse Rate [ From Monitor] Pulse Rate [ None] Respiratory 11 L 13 12 Rate Blood Pressure 91/49 O2 Sat by Pulse 100 100 Oximetry 08/12/19 08/12/19 08/12/19 08:30 08:45 09:00 Temperature Pulse Rate 66 68 68 Pulse Rate [ From Monitor] Pulse Rate [ None] Respiratory 9 L 9 L 9 L Rate Blood Pressure 87/52 83/46 88/59 O2 Sat by Pulse 100 100 100 Oximetry 08/12/19 08/12/19 08/12/19 09:15 09:30 09:45 Temperature Pulse Rate 74 72 73 Pulse Rate [ From Monitor] Pulse Rate [ None] Respiratory 9 L 9 L 9 L Rate Blood Pressure 84/53 72/50 79/47 O2 Sat by Pulse 100 100 100 Oximetry 08/12/19 08/12/19 10:00 12:00 Temperature 90.2 F L Pulse Rate 68 Pulse Rate [ From Monitor] Pulse Rate [ None] Respiratory 9 L Rate Blood Pressure 69/46 O2 Sat by Pulse 100 Oximetry - Labs CBC & Chem 7: 08/13/19 09:30 08/13/19 13:01 Labs: Abnormal lab results 08/11/19 08/11/19 08/11/19 Range/Units 20:11 20:11 20:11 WBC (4.5-11.0) K/mm3 RBC (3.65-5.03) M/mm3 Hgb (11.8-15.2) gm/dl Hct (35.5-45.6) % RDW (13.2-15.2) % Plt Count (140-440) K/mm3 Seg Neuts % (Manual) (40.0-70.0) % Lymphocytes % (Manual) (13.4-35.0) % Nucleated RBC % (0.0-0.9) % Seg Neutrophils # Man (1.8-7.7) K/mm3 Lymphocytes # (Manual) (1.2-5.4) K/mm3 PT 21.1 H (12.2-14.9) Sec. INR 1.86 H (0.87-1.13) APTT 52.9 H (24.2-36.6) Sec. POC ABG pH (7.35-7.45) POC ABG pCO2 (35-45) Sodium (137-145) mmol/L Potassium (3.6-5.0) mmol/L Carbon Dioxide (22-30) mmol/L BUN (9-20) mg/dL Creatinine (0.8-1.5) mg/dL Glucose (75-100) mg/dL POC Glucose (70-105) Lactic Acid 3.00 H* (0.7-2.0) mmol/L Calcium (8.4-10.2) mg/dL Total Bilirubin (0.1-1.2) mg/dL AST (5-40) units/L Alkaline Phosphatase (35-129) units/L Ammonia (25-60) umol/L Total Creatine Kinase (55-170) units/L CK-MB (CK-2) (0.0-4.0) ng/mL CK-MB (CK-2) Rel Index (0-4) Troponin T 0.086 H (0.00-0.029) ng/mL Total Protein (6.3-8.2) g/dL Albumin (3.9-5) g/dL LDL Cholesterol Direct 140 H (50-130) mg/dL HDL Cholesterol 14 L (40-59) mg/dL Urine WBC (Auto) (0.0-6.0) /HPF Salicylates (2.8-20.0) mg/dL Acetaminophen (10.0-30.0) ug/mL 08/11/19 08/11/19 08/11/19 Range/Units 20:11 20:11 20:11 WBC (4.5-11.0) K/mm3 RBC (3.65-5.03) M/mm3 Hgb (11.8-15.2) gm/dl Hct (35.5-45.6) % RDW (13.2-15.2) % Plt Count (140-440) K/mm3 Seg Neuts % (Manual) (40.0-70.0) % Lymphocytes % (Manual) (13.4-35.0) % Nucleated RBC % (0.0-0.9) % Seg Neutrophils # Man (1.8-7.7) K/mm3 Lymphocytes # (Manual) (1.2-5.4) K/mm3 PT (12.2-14.9) Sec. INR (0.87-1.13) APTT (24.2-36.6) Sec. POC ABG pH (7.35-7.45) POC ABG pCO2 (35-45) Sodium 133 L (137-145) mmol/L Potassium 3.1 L (3.6-5.0) mmol/L Carbon Dioxide 14 L (22-30) mmol/L BUN 79 H (9-20) mg/dL Creatinine 4.5 H (0.8-1.5) mg/dL Glucose 61 L (75-100) mg/dL POC Glucose (70-105) Lactic Acid (0.7-2.0) mmol/L Calcium 7.5 L (8.4-10.2) mg/dL Total Bilirubin 2.10 H (0.1-1.2) mg/dL AST 42 H (5-40) units/L Alkaline Phosphatase 148 H (35-129) units/L Ammonia 106.0 H (25-60) umol/L Total Creatine Kinase 34 L (55-170) units/L CK-MB (CK-2) (0.0-4.0) ng/mL CK-MB (CK-2) Rel Index (0-4) Troponin T (0.00-0.029) ng/mL Total Protein 4.9 L (6.3-8.2) g/dL Albumin 1.6 L (3.9-5) g/dL LDL Cholesterol Direct (50-130) mg/dL HDL Cholesterol (40-59) mg/dL Urine WBC (Auto) (0.0-6.0) /HPF Salicylates < 0.3 L (2.8-20.0) mg/dL Acetaminophen (10.0-30.0) ug/mL 08/11/19 08/11/19 08/11/19 Range/Units 20:11 20:14 22:39 WBC 18.1 H (4.5-11.0) K/mm3 RBC 2.79 L (3.65-5.03) M/mm3 Hgb 8.7 L (11.8-15.2) gm/dl Hct 25.7 L (35.5-45.6) % RDW 26.1 H (13.2-15.2) % Plt Count 72 L (140-440) K/mm3 Seg Neuts % (Manual) 96.0 H (40.0-70.0) % Lymphocytes % (Manual) 3.0 L (13.4-35.0) % Nucleated RBC % (0.0-0.9) % Seg Neutrophils # Man 17.4 H (1.8-7.7) K/mm3 Lymphocytes # (Manual) 0.5 L (1.2-5.4) K/mm3 PT (12.2-14.9) Sec. INR (0.87-1.13) APTT (24.2-36.6) Sec. POC ABG pH (7.35-7.45) POC ABG pCO2 (35-45) Sodium (137-145) mmol/L Potassium (3.6-5.0) mmol/L Carbon Dioxide (22-30) mmol/L BUN (9-20) mg/dL Creatinine (0.8-1.5) mg/dL Glucose (75-100) mg/dL POC Glucose 124 H (70-105) Lactic Acid (0.7-2.0) mmol/L Calcium (8.4-10.2) mg/dL Total Bilirubin (0.1-1.2) mg/dL AST (5-40) units/L Alkaline Phosphatase (35-129) units/L Ammonia (25-60) umol/L Total Creatine Kinase (55-170) units/L CK-MB (CK-2) (0.0-4.0) ng/mL CK-MB (CK-2) Rel Index (0-4) Troponin T (0.00-0.029) ng/mL Total Protein (6.3-8.2) g/dL Albumin (3.9-5) g/dL LDL Cholesterol Direct (50-130) mg/dL HDL Cholesterol (40-59) mg/dL Urine WBC (Auto) (0.0-6.0) /HPF Salicylates (2.8-20.0) mg/dL Acetaminophen < 5.0 L (10.0-30.0) ug/mL 08/11/19 08/12/19 08/12/19 Range/Units 22:54 00:54 00:54 WBC (4.5-11.0) K/mm3 RBC (3.65-5.03) M/mm3 Hgb (11.8-15.2) gm/dl Hct (35.5-45.6) % RDW (13.2-15.2) % Plt Count (140-440) K/mm3 Seg Neuts % (Manual) (40.0-70.0) % Lymphocytes % (Manual) (13.4-35.0) % Nucleated RBC % (0.0-0.9) % Seg Neutrophils # Man (1.8-7.7) K/mm3 Lymphocytes # (Manual) (1.2-5.4) K/mm3 PT (12.2-14.9) Sec. INR (0.87-1.13) APTT (24.2-36.6) Sec. POC ABG pH (7.35-7.45) POC ABG pCO2 (35-45) Sodium (137-145) mmol/L Potassium (3.6-5.0) mmol/L Carbon Dioxide (22-30) mmol/L BUN (9-20) mg/dL Creatinine (0.8-1.5) mg/dL Glucose (75-100) mg/dL POC Glucose (70-105) Lactic Acid 2.70 H* 2.90 H* (0.7-2.0) mmol/L Calcium (8.4-10.2) mg/dL Total Bilirubin (0.1-1.2) mg/dL AST (5-40) units/L Alkaline Phosphatase (35-129) units/L Ammonia (25-60) umol/L Total Creatine Kinase 44 L (55-170) units/L CK-MB (CK-2) 7.5 H (0.0-4.0) ng/mL CK-MB (CK-2) Rel Index 17.0 H (0-4) Troponin T 0.080 H (0.00-0.029) ng/mL Total Protein (6.3-8.2) g/dL Albumin (3.9-5) g/dL LDL Cholesterol Direct (50-130) mg/dL HDL Cholesterol (40-59) mg/dL Urine WBC (Auto) (0.0-6.0) /HPF Salicylates (2.8-20.0) mg/dL Acetaminophen (10.0-30.0) ug/mL 08/12/19 08/12/19 08/12/19 Range/Units 02:12 02:42 05:10 WBC 34.3 H (4.5-11.0) K/mm3 RBC 3.11 L (3.65-5.03) M/mm3 Hgb 9.5 L (11.8-15.2) gm/dl Hct 29.1 L (35.5-45.6) % RDW 26.9 H (13.2-15.2) % Plt Count 95 L (140-440) K/mm3 Seg Neuts % (Manual) 99.0 H (40.0-70.0) % Lymphocytes % (Manual) 0 L (13.4-35.0) % Nucleated RBC % 1.0 H (0.0-0.9) % Seg Neutrophils # Man 34.0 H (1.8-7.7) K/mm3 Lymphocytes # (Manual) 0.0 L (1.2-5.4) K/mm3 PT (12.2-14.9) Sec. INR (0.87-1.13) APTT (24.2-36.6) Sec. POC ABG pH (7.35-7.45) POC ABG pCO2 (35-45) Sodium (137-145) mmol/L Potassium (3.6-5.0) mmol/L Carbon Dioxide (22-30) mmol/L BUN (9-20) mg/dL Creatinine (0.8-1.5) mg/dL Glucose (75-100) mg/dL POC Glucose 168 H (70-105) Lactic Acid (0.7-2.0) mmol/L Calcium (8.4-10.2) mg/dL Total Bilirubin (0.1-1.2) mg/dL AST (5-40) units/L Alkaline Phosphatase (35-129) units/L Ammonia (25-60) umol/L Total Creatine Kinase (55-170) units/L CK-MB (CK-2) (0.0-4.0) ng/mL CK-MB (CK-2) Rel Index (0-4) Troponin T (0.00-0.029) ng/mL Total Protein (6.3-8.2) g/dL Albumin (3.9-5) g/dL LDL Cholesterol Direct (50-130) mg/dL HDL Cholesterol (40-59) mg/dL Urine WBC (Auto) > 182.0 H (0.0-6.0) /HPF Salicylates (2.8-20.0) mg/dL Acetaminophen (10.0-30.0) ug/mL 12/03/19 12/03/19 12/03/19 Range/Units 05:10 05:10 05:10 WBC (4.5-11.0) K/mm3 RBC (3.65-5.03) M/mm3 Hgb (11.8-15.2) gm/dl Hct (35.5-45.6) % RDW (13.2-15.2) % Plt Count (140-440) K/mm3 Seg Neuts % (Manual) (40.0-70.0) % Lymphocytes % (Manual) (13.4-35.0) % Nucleated RBC % (0.0-0.9) % Seg Neutrophils # Man (1.8-7.7) K/mm3 Lymphocytes # (Manual) (1.2-5.4) K/mm3 PT 22.4 H (12.2-14.9) Sec. INR 2.01 H (0.87-1.13) APTT 55.3 H (24.2-36.6) Sec. POC ABG pH (7.35-7.45) POC ABG pCO2 (35-45) Sodium 134 L (137-145) mmol/L Potassium 3.5 L (3.6-5.0) mmol/L Carbon Dioxide 17 L (22-30) mmol/L BUN 74 H (9-20) mg/dL Creatinine 4.3 H (0.8-1.5) mg/dL Glucose 161 H (75-100) mg/dL POC Glucose (70-105) Lactic Acid (0.7-2.0) mmol/L Calcium 7.1 L (8.4-10.2) mg/dL Total Bilirubin 2.50 H (0.1-1.2) mg/dL AST 46 H (5-40) units/L Alkaline Phosphatase 175 H (35-129) units/L Ammonia (25-60) umol/L Total Creatine Kinase 44 L (55-170) units/L CK-MB (CK-2) 8.3 H (0.0-4.0) ng/mL CK-MB (CK-2) Rel Index 18.8 H (0-4) Troponin T 0.077 H (0.00-0.029) ng/mL Total Protein 5.5 L (6.3-8.2) g/dL Albumin 1.8 L (3.9-5) g/dL LDL Cholesterol Direct (50-130) mg/dL HDL Cholesterol (40-59) mg/dL Urine WBC (Auto) (0.0-6.0) /HPF Salicylates (2.8-20.0) mg/dL Acetaminophen (10.0-30.0) ug/mL 08/12/19 08/12/19 08/12/19 Range/Units 05:10 05:28 06:15 WBC (4.5-11.0) K/mm3 RBC (3.65-5.03) M/mm3 Hgb (11.8-15.2) gm/dl Hct (35.5-45.6) % RDW (13.2-15.2) % Plt Count (140-440) K/mm3 Seg Neuts % (Manual) (40.0-70.0) % Lymphocytes % (Manual) (13.4-35.0) % Nucleated RBC % (0.0-0.9) % Seg Neutrophils # Man (1.8-7.7) K/mm3 Lymphocytes # (Manual) (1.2-5.4) K/mm3 PT (12.2-14.9) Sec. INR (0.87-1.13) APTT (24.2-36.6) Sec. POC ABG pH (7.35-7.45) POC ABG pCO2 (35-45) Sodium (137-145) mmol/L Potassium (3.6-5.0) mmol/L Carbon Dioxide (22-30) mmol/L BUN (9-20) mg/dL Creatinine (0.8-1.5) mg/dL Glucose (75-100) mg/dL POC Glucose 174 H (70-105) Lactic Acid 2.60 H* (0.7-2.0) mmol/L Calcium (8.4-10.2) mg/dL Total Bilirubin (0.1-1.2) mg/dL AST (5-40) units/L Alkaline Phosphatase (35-129) units/L Ammonia 66.0 H (25-60) umol/L Total Creatine Kinase (55-170) units/L CK-MB (CK-2) (0.0-4.0) ng/mL CK-MB (CK-2) Rel Index (0-4) Troponin T (0.00-0.029) ng/mL Total Protein (6.3-8.2) g/dL Albumin (3.9-5) g/dL LDL Cholesterol Direct (50-130) mg/dL HDL Cholesterol (40-59) mg/dL Urine WBC (Auto) (0.0-6.0) /HPF Salicylates (2.8-20.0) mg/dL Acetaminophen (10.0-30.0) ug/mL 08/12/19 08/12/19 08/12/19 Range/Units 06:15 09:52 10:37 WBC (4.5-11.0) K/mm3 RBC (3.65-5.03) M/mm3 Hgb (11.8-15.2) gm/dl Hct (35.5-45.6) % RDW (13.2-15.2) % Plt Count (140-440) K/mm3 Seg Neuts % (Manual) (40.0-70.0) % Lymphocytes % (Manual) (13.4-35.0) % Nucleated RBC % (0.0-0.9) % Seg Neutrophils # Man (1.8-7.7) K/mm3 Lymphocytes # (Manual) (1.2-5.4) K/mm3 PT (12.2-14.9) Sec. INR (0.87-1.13) APTT (24.2-36.6) Sec. POC ABG pH 7.332 L (7.35-7.45) POC ABG pCO2 28.3 L (35-45) Sodium (137-145) mmol/L Potassium (3.6-5.0) mmol/L Carbon Dioxide (22-30) mmol/L BUN (9-20) mg/dL Creatinine (0.8-1.5) mg/dL Glucose (75-100) mg/dL POC Glucose 223 H (70-105) Lactic Acid 2.90 H* (0.7-2.0) mmol/L Calcium (8.4-10.2) mg/dL Total Bilirubin (0.1-1.2) mg/dL AST (5-40) units/L Alkaline Phosphatase (35-129) units/L Ammonia (25-60) umol/L Total Creatine Kinase (55-170) units/L CK-MB (CK-2) (0.0-4.0) ng/mL CK-MB (CK-2) Rel Index (0-4) Troponin T (0.00-0.029) ng/mL Total Protein (6.3-8.2) g/dL Albumin (3.9-5) g/dL LDL Cholesterol Direct (50-130) mg/dL HDL Cholesterol (40-59) mg/dL Urine WBC (Auto) (0.0-6.0) /HPF Salicylates (2.8-20.0) mg/dL Acetaminophen (10.0-30.0) ug/mL
[2019-08-12] MEDS ORDERED: VANCOMYCIN 1,500 MG in SODIUM CHLORIDE 0.9% 500 ML 500 ML IV ONE (15:00)
--- NOTE | 2019-08-12 15:15 | Consultation ---
History of Present Illness - Reason for Consult Consult date: 08/12/19 acute renal failure - History of Present Illness HISTORY OBTAINED FROM MEDICAL RECORDS DUE TO MENTAL STATUS Mr. Holland is a 74yo with liver cirrhosis and alcohol abuse who was recently hospitalized at [facility] in June for septic with shock and encephalopathy. He was transferred to inpatient rehab on Jul 11 and subsequently discharged to a personal retirement. He was sent to the ED by personal retirement for evaluation due to lack of urine output. In the ED, a Hewitt catheter was placed with immediate return of clear, yellow urine. However, patient was hypothermic, hyypotensive and hypoglycemic. Labs were notable WBC 18, BUN 74, SCr 4.3. Nephrology consultation requested for HERRERA. He has a hx of HERRERA attributed to prerenal azotemia due to volume depletion at prior hospitalization. SCr 1.4mg/dL at d/c on Jul 11 Past History Past Medical History: other (unable to obtain from patient but reviewed from last hospital stay) Past Surgical History: Other (reviewed from last hospital stay) Social history: other (Currently residing at a personal retirement. Does have at least 1 daughter) Family history: other (unable to obtain.) Medications and Allergies Allergies Allergy/AdvReac Type Severity Reaction Status Date / Time Unable to Assess Allergy Verified 07/04/19 05:14 Home Medications Medication Instructions Recorded Confirmed Last Taken Type Lactulose [Cephulac] 20 gm PO QDAY #30 oral.liqd 07/11/19 08/11/19 Unknown Rx Pantoprazole [Protonix TAB] 40 mg PO BID #60 tablet 07/11/19 08/11/19 Unknown Rx Rifaximin [Xifaxan] 550 mg PO BID tablet 07/11/19 08/11/19 Unknown Rx Sodium Bicarbonate 1,300 mg PO TID tablet 07/11/19 08/11/19 Unknown Rx oxyCODONE /ACETAMINOPHEN [Percocet 1 tab PO Q6H PRN #7 tablet 07/11/19 08/11/19 Unknown Rx 5/325 mg] Active Meds: Active Medications Dextrose (D50w (25gm) Syringe) 0 ml IV Q30MIN PRN; Protocol PRN Reason: Hypoglycemia Norepinephrine (Levophed Drip 4 Mg/Ns 250 Ml) 4 mg in 250 mls @ 7.5 mls/hr IV TITR FORTINO; Protocol Last Admin: 08/12/19 12:39 Dose: 16 mcg/min, 60 mls/hr Documented by: Dextrose/Sodium Chloride (D5/0.45ns) 1,000 mls @ 50 mls/hr IV DIRECT FORTINO Last Admin: 08/12/19 02:20 Dose: 50 mls/hr Documented by: Vasopressin 20 unit/ Sodium (Chloride) 101 mls @ 9.09 mls/hr IV TITR FORTINO; Pro tocol Last Admin: 08/12/19 11:17 Dose: 0.03 units/min, 9.09 mls/hr Documented by: MEROPENEM/NS 1 GRAM/100 ML (Merrem/Ns 1 Gram/100 Ml) 1 gram in 100 mls @ 100 mls/hr IV Q24HR FORTINO; Protocol Vancomycin HCl 1,500 mg/ (Sodium Chloride) 530 mls @ 333 mls/hr IV ONCE ONE; Protocol Stop: 08/12/19 16:35 Ondansetron HCl (Zofran) 4 mg IV Q8H PRN PRN Reason: Nausea And Vomiting Sodium Chloride (Sodium Chloride Flush Syringe 10 Ml) 10 ml IV BID FORTINO Last Admin: 08/12/19 10:41 Dose: 10 ml Documented by: Sodium Chloride (Sodium Chloride Flush Syringe 10 Ml) 10 ml IV PRN PRN PRN Reason: LINE FLUSH Review of Systems ROS unobtainable: due to mental status Exam - Vital Signs Vital signs: Vital Signs Pulse Resp BP Pulse Ox 87 11 L 57/30 100 08/11/19 19:46 08/11/19 19:46 08/11/19 19:46 08/11/19 19:46 - General Appearance General appearance: chronically ill EENT: ATNC Respiratory: Decreased Breath Sounds Heart: regular, S1S2 Gastrointestinal: Absent: tenderness, distended Integumentary: warm and dry Neurologic: other (awake, nonverbal, does not follow commands) Musculoskeletal: Present: other (2+ pitting edema) Psychiatric: other (nonverbal) Results - Lab Results 08/12/19 05:10 08/12/19 05:10 Most recent lab results Calcium 7.1 mg/dL (8.4-10.2) L 08/12/19 05:10 Assessment and Plan Impression: * Nonoliguric HERRERA secondary to prerenal azotemia due to volume depletion vs ATN --SCr 1.4mg/dL at d/c on Jul 11, 2019 * Sepsis * Encephalopathy * Metabolic acidosis secondary to lactic acidosis * Coagulopathy - INR 2.0 at admission * Thrombocytopenia * Liver cirrhosis * Atrial fibrillation/flutter * Anemia * Hx of alcohol abuse Plan: * No acute need for renal replacement therapy at this time but renal prognosis is guarded * Maintain hewitt catheter placement for strict I/O * Renal u/s ordered * Patient w/ worsening leukocytosis this AM - WBC 30k. Empiric abx per ID * Blood cx are pending * Pressors prn to maintain MAP>65 * Dose medications for renal function * Avoid potential nephrotoxins * Strict I/O * AM labs ordered
[2019-08-12] MEDS: MEROPENEM/NS 1 GRAM/100 ML 1 GRAM/100 ML BAG IV SCH (15:57)
--- NOTE | 2019-08-12 19:13 | XRay Report ---
ABDOMEN 08/12/2019 INDICATION / CLINICAL INFORMATION: dobhoff placement. COMPARISON: None available. FINDINGS: The Dobbhoff tube is located in the mid stomach, directed to the left side. Signer Name: Rodriguez Lake MD Signed: 08/12/2019 7:08 PM Workstation Name: [id number]
[2019-08-13 01:33] LABS: Hepatitis B Surface Antigen Non-Reactive (Negative); Hepatitis C Virus Antibody Non-Reactive (NonReactive)
[2019-08-13] MEDS: NORepinephrine/NS 4 MG-250 ML 4 MG/250 ML BAG IV SCH ×5 (02:58→21:49)
[2019-08-13] MEDS: VASOPRESSIN 20 UNIT in SODIUM CHLORIDE 0.9% 100 ML IV SCH ×2 (09:05→18:57)
[2019-08-13] MEDS ORDERED: CEFEPIME/NS 1 GM/100 ML 1 GM/100 ML BAG IV SCH (10:00)
[2019-08-13] MEDS ORDERED: SODIUM BICARBONATE 650 MG TAB PO SCH (10:00)
--- NOTE | 2019-08-13 11:14 | Progress Note ---
Assessment and Plan Cultures: 08/11/2019 blood culture: no growth thus far 08/11/2019 urine culture: in process A/P: 74-year-old male with extensive alcohol abuse, alcoholic cirrhosis, decubitus ulcers, recent hospitalization, now admitted with #Shock, hypothermia, likely septic: etiology unclear. Possibly urine given si gnificant pyuria. Also should eval for SBP if he has ascites on US. Concern for Gram negative sepsis. #UTI: now has hewitt placed. Has history of VRE UTI, got linezolid in ER, hold off on additional linezolid in the setting of thrombocytopenia. #Lactic acidosis #Acute renal failure #Thrombocytopenia #H/O alcohol abuse #Multiple skin tears, malnutrition: recommend wound care Recs: continue IV Meropenem renally adjusted follow up blood and urine cultures f/u pending abdominal US continue IV Vancomycin with renal dosing Prognosis is guarded. Sherry Knight MD, FACP [facility] C: [phone] O: [phone] F: [phone] Subjective Date of service: 08/13/19 Interval history: Remains encephalopathic. Still on 2 pressors. On ventimask. Objective - Exam Narrative Exam: Physical Exam: Constitutional: opens eyes, but encephalopathic Head, Ears, Nose: Normocephalic, atraumatic. External ears, nose normal Eyes: Conjunctivae/corneas clear. No icterus. No ptosis. Neck: Supple, no meningeal signs Cardiovascular: S1, S2 normal. Respiratory: Good air entry, clear to auscultation bilaterally GI: Soft, non-tender; bowel sounds normal. No peritoneal signs Musculoskeletal: anasarca + Skin: extensive skin tears, purpuric areas on skin Hem/Lymphatic: No palpable cervical or supraclavicular nodes. No lymphangitis Psych: confused, not agitated Neurological: awake, but encephalopathic Lines: Hewitt, central line - Constitutional Vitals: Vital Signs Temp Pulse Resp BP Pulse Ox 99.7 F H 111 H 18 95/52 100 08/13/19 07:41 08/13/19 10:15 08/13/19 10:15 08/13/19 10:15 08/13/19 10:15 Temperature -Last 24 Hours Temperature 99.7 F Temperature 100.7 F Temperature 98.5 F Temperature 97.4 F Temperature 91.5 F Temperature 90.2 F - Labs CBC & Chem 7: 08/12/19 05:10 08/12/19 05:10 Labs: Abnormal lab results 08/12/19 Range/Units 17:37 POC Glucose 179 H (70-105) - Imaging and cardiology Abdominal x-ray: report reviewed, image reviewed (DHT + in stomach)
[2019-08-13] MEDS: MEROPENEM/NS 1 GRAM/100 ML 1 GRAM/100 ML BAG IV SCH (11:20)
[2019-08-13] MEDS: ALBUMIN HUMAN 25% (25 GM/100 ML) INJ IV SCH ×2 (13:00→18:57)
[2019-08-13] MEDS: SODIUM BICARBONATE 650 MG TAB PO SCH ×2 (13:01→20:00)
[2019-08-13 13:06] LABS: Hematocrit 24.7 % (35.5-45.6); Mean Corpuscular HGB Conc 32 % (32-34); Mean Corpuscular Volume 94 fl (84-94); Red Blood Count 2.62 M/mm3 (3.65-5.03)
[2019-08-13] MEDS: LANSOPRAZOLE 30 MG SOLUTAB FEEDTUBE SCH ×2 (13:06→21:49)
[2019-08-13 13:07] LABS: Platelet Count 78 K/mm3 (140-440)
[2019-08-13] MEDS: RIFAXIMIN 550 MG TAB PO SCH ×2 (13:07→21:58)
[2019-08-13 13:17] LABS: INR 2.34 (0.87-1.13)
[2019-08-13 13:31] LABS: Albumin 1.4 g/dL (3.9-5); Calcium 6.7 mg/dL (8.4-10.2)
--- NOTE | 2019-08-13 15:20 | Progress Note ---
Assessment and Plan Septic Shock ??- hypotension - on levophed, Cx so far negative Acute Renal Failure - lokely vasomotor nephropathy vs ATN - consult nephrology, monitor BMP, iv fluid Acute Hepatic Encephalopathy - s/p lactulose, follow ammonia level Abnormal cadiac enzymes/NSTEMI type II - Follow cardiac enzymes, monitor vitals, patient has preserved EF based on 2-D echocardiogram 06/2019 Hypoglycemia, on D5 Anemia of chronic disease, monitor h/h Thrombocytopenia, due to CLD Hyponatremia, due to dehydration, on ov fluid Hypokalemia, replete Cirrhosis of liver, monitor LFT Coagulopathy, from CLD, cont to monitor Severe protein calorie malnutrition, nutrition consulted Multiple different stages decubitus pressure ulcers - wound care following DVT prophalaxis with SCD Full CODE STATUS, very poor prognosis The high probability of a clinically significant, sudden or life threatening deterioration of the [multiple] system(s) required my full and direct attention, intervention and personal management. The aggregate critical care time was [35] minutes. This time is in addition to time spent performing reported procedures but includes the following: [x] Data Review and interpretation [x] Patient assessment and monitoring of vital signs [x] Documentation [x] Medication orders and management Brief History: The patient is a 74-year-old male with extensive alcohol abuse, alcoholic cirrhosis, decubitus ulcers, recent hospitalization admitted with possible sepsis with shock and encephalopathy. Hospitalist Physical exam: GENERAL: Elderly debilitated confused white male lying on bed HEENT: Normocephalic. Atraumatic. No conjunctival congestion or icterus. Patient has dry mucous membranes. NECK: Supple. Trachea midline. CHEST/LUNGS: Coarse breath sounds auscultated bilaterally, breathing slightly labored. HEART/CARDIOVASCULAR: Regular in rate and rhythm. S1 and S2 positive. ABDOMEN: Abdomen is soft, nontender. Patient has normal bowel sounds. SKIN: Multiple pressure ulcer all over the body, cold NEURO: Does not Follow command. MUSCULOSKELETAL: No joint effusion or tenderness. EXTRIMITY: + edema, no cyanosis or clubbing. PSYCH: Unable to assess Subjective Date of service: 08/13/19 Interval history: Patient seen and examined. Medical records and medication list reviewed. No acute event overnight noted by the RN. Patient remained on pressor and confused Discussed plan of care at bedside with patient's RN. Objective - Constitutional Vitals: Vital Signs - 12hr 08/13/19 08/13/19 08/13/19 03:30 03:45 04:00 Temperature 100.7 F H Pulse Rate 122 H 125 H 121 H Pulse Rate [ 129 H From Monitor] Respiratory 17 20 15 Rate Blood Pressure 76/38 77/39 77/36 O2 Sat by Pulse 99 99 99 Oximetry 08/13/19 08/13/19 08/13/19 04:15 04:30 04:45 Temperature Pulse Rate 124 H 125 H 131 H Pulse Rate [ From Monitor] Respiratory 18 19 16 Rate Blood Pressure 78/37 78/38 76/39 O2 Sat by Pulse 99 99 99 Oximetry 08/13/19 08/13/19 08/13/19 05:00 05:15 05:30 Temperature Pulse Rate 123 H 128 H 136 H Pulse Rate [ From Monitor] Respiratory 19 23 22 Rate Blood Pressure 79/38 76/39 75/36 O2 Sat by Pulse 99 99 98 Oximetry 08/13/19 08/13/19 08/13/19 05:45 06:00 06:15 Temperature Pulse Rate 122 H 127 H 125 H Pulse Rate [ From Monitor] Respiratory 20 20 20 Rate Blood Pressure 75/32 81/41 63/35 O2 Sat by Pulse 99 99 99 Oximetry 08/13/19 08/13/19 08/13/19 06:30 06:45 07:00 Temperature Pulse Rate 124 H 128 H 127 H Pulse Rate [ From Monitor] Respiratory 30 H 20 21 Rate Blood Pressure 89/45 106/52 75/46 O2 Sat by Pulse 99 99 99 Oximetry 08/13/19 08/13/19 08/13/19 07:15 07:25 07:30 Temperature Pulse Rate 127 H 132 H Pulse Rate [ From Monitor] Respiratory 21 20 Rate Blood Pressure 83/50 96/51 O2 Sat by Pulse 99 99 100 Oximetry 08/13/19 08/13/19 08/13/19 07:41 07:45 08:00 Temperature 99.7 F H Pulse Rate 124 H 127 H Pulse Rate [ From Monitor] Respiratory 16 18 Rate Blood Pressure 93/49 103/51 O2 Sat by Pulse 100 100 Oximetry 08/13/19 08/13/19 08/13/19 08:15 08:30 08:45 Temperature Pulse Rate 126 H 128 H 131 H Pulse Rate [ From Monitor] Respiratory 22 18 16 Rate Blood Pressure 104/52 99/54 107/55 O2 Sat by Pulse 100 100 100 Oximetry 08/13/19 08/13/19 08/13/19 09:00 09:15 09:30 Temperature Pulse Rate 122 H 123 H 126 H Pulse Rate [ From Monitor] Respiratory 18 15 18 Rate Blood Pressure 96/49 96/50 98/52 O2 Sat by Pulse 100 100 100 Oximetry 08/13/19 08/13/19 08/13/19 09:46 10:00 10:15 Temperature Pulse Rate 109 H 111 H 111 H Pulse Rate [ From Monitor] Respiratory 16 23 18 Rate Blood Pressure 57/33 57/33 95/52 O2 Sat by Pulse 100 93 100 Oximetry 08/13/19 08/13/19 08/13/19 10:30 10:45 11:00 Temperature Pulse Rate 123 H 126 H 123 H Pulse Rate [ From Monitor] Respiratory 20 19 17 Rate Blood Pressure 97/53 99/54 94/44 O2 Sat by Pulse 100 100 100 Oximetry 08/13/19 08/13/19 11:15 12:00 Temperature 98.7 F Pulse Rate 117 H Pulse Rate [ From Monitor] Respiratory 18 Rate Blood Pressure 94/55 O2 Sat by Pulse 100 Oximetry - Labs CBC & Chem 7: 08/13/19 09:30 08/13/19 13:01 Labs: Abnormal lab results 08/12/19 08/13/19 08/13/19 Range/Units 17:37 09:30 11:45 WBC 17.8 H (4.5-11.0) K/mm3 RBC 2.62 L (3.65-5.03) M/mm3 Hgb 8.0 L (11.8-15.2) gm/dl Hct 24.7 L (35.5-45.6) % RDW 27.0 H (13.2-15.2) % Plt Count 78 L (140-440) K/mm3 PT (12.2-14.9) Sec. INR (0.87-1.13) Sodium (137-145) mmol/L Carbon Dioxide (22-30) mmol/L BUN (9-20) mg/dL Creatinine (0.8-1.5) mg/dL Glucose (75-100) mg/dL POC Glucose 179 H 107 H (70-105) Calcium (8.4-10.2) mg/dL Total Bilirubin (0.1-1.2) mg/dL AST (5-40) units/L Alkaline Phosphatase (35-129) units/L Total Protein (6.3-8.2) g/dL Albumin (3.9-5) g/dL 08/13/19 08/13/19 Range/Units 13:01 13:01 WBC (4.5-11.0) K/mm3 RBC (3.65-5.03) M/mm3 Hgb (11.8-15.2) gm/dl Hct (35.5-45.6) % RDW (13.2-15.2) % Plt Count (140-440) K/mm3 PT 25.2 H (12.2-14.9) Sec. INR 2.34 H (0.87-1.13) Sodium 136 L (137-145) mmol/L Carbon Dioxide 12 L (22-30) mmol/L BUN 73 H (9-20) mg/dL Creatinine 4.5 H (0.8-1.5) mg/dL Glucose 104 H (75-100) mg/dL POC Glucose (70-105) Calcium 6.7 L (8.4-10.2) mg/dL Total Bilirubin 2.50 H (0.1-1.2) mg/dL AST 56 H (5-40) units/L Alkaline Phosphatase 136 H (35-129) units/L Total Protein 4.8 L (6.3-8.2) g/dL Albumin 1.4 L (3.9-5) g/dL
--- NOTE | 2019-08-13 15:57 | Progress Note ---
Assessment and Plan 74 y/o male admitted with altered mental state, hypotension, hypothermia and hypoglycemia. 1. Agree with broad spec abx. Likely out of the window to do LP. Head CT was normal. EEG has not officially been read but prelim is no status. WBC count acutally improved today. Maybe yesterday was error. I have stopped lactulose, just like last time given the patient is hypotensive. Diarrhea could make this worse, despite what his ammonia level is. Follow up cultures from blood and urine. Both could be possible sources. 2. STat ABG does not show hypercarbia and good Oxygen sats are seen. Will wean Venti-mask. 3. Will place Dobb shazia and restart all home medications with the exception of lactulose and percocets. Still cant feed patient given his pressor requirement. Continue IVF' with dextrose 4. Strict I/O's 5. Added Vasopressin as patient likely has a component of hepatorenal syndrome. Will attempt to wean levophed first. Follow up renal recommendations. May need to given volume. Will attempt to use albumin 25gms IV q6 to see if this will help with BP 6. Patient also coagulopathic. Will given IV vitamin K 10 x 1. need to repeat Coags. Will order for tomorrow and needs a chemistry as well on hepatic panel ordered primary physician Overall prognosis is guarded. Patient presented very similar in June and rebounded well. Hopefully this can happen again. However multiple insults like this will be harder to bounce back from each time they happen. Especially so close in proximity. 08/13 Called daughter Indira today but no answer. Will attempt again later. CCT 31 minutes. Subjective Date of service: 08/13/19 Interval history: Mental status is slightly better but clinically patient appears worse. Vasopressor requirement has increased. Renal and ABdominal US done today, latter looking for ascities. Objective - Constitutional Vitals: Vital Signs - 12hr 08/13/19 08/13/19 08/13/19 04:00 04:15 04:30 Temperature Pulse Rate 121 H 124 H 125 H Pulse Rate [ 129 H From Monitor] Respiratory 15 18 19 Rate Blood Pressure 77/36 78/37 78/38 O2 Sat by Pulse 99 99 99 Oximetry 08/13/19 08/13/19 08/13/19 04:45 05:00 05:15 Temperature Pulse Rate 131 H 123 H 128 H Pulse Rate [ From Monitor] Respiratory 16 19 23 Rate Blood Pressure 76/39 79/38 76/39 O2 Sat by Pulse 99 99 99 Oximetry 08/13/19 08/13/19 08/13/19 05:30 05:45 06:00 Temperature Pulse Rate 136 H 122 H 127 H Pulse Rate [ From Monitor] Respiratory 22 20 20 Rate Blood Pressure 75/36 75/32 81/41 O2 Sat by Pulse 98 99 99 Oximetry 08/13/19 08/13/19 08/13/19 06:15 06:30 06:45 Temperature Pulse Rate 125 H 124 H 128 H Pulse Rate [ From Monitor] Respiratory 20 30 H 20 Rate Blood Pressure 63/35 89/45 106/52 O2 Sat by Pulse 99 99 99 Oximetry 08/13/19 08/13/19 08/13/19 07:00 07:15 07:25 Temperature Pulse Rate 127 H 127 H Pulse Rate [ From Monitor] Respiratory 21 21 Rate Blood Pressure 75/46 83/50 O2 Sat by Pulse 99 99 99 Oximetry 08/13/19 08/13/19 08/13/19 07:30 07:41 07:45 Temperature 99.7 F H Pulse Rate 132 H 124 H Pulse Rate [ From Monitor] Respiratory 20 16 Rate Blood Pressure 96/51 93/49 O2 Sat by Pulse 100 100 Oximetry 08/13/19 08/13/19 08/13/19 08:00 08:15 08:30 Temperature Pulse Rate 127 H 126 H 128 H Pulse Rate [ From Monitor] Respiratory 18 22 18 Rate Blood Pressure 103/51 104/52 99/54 O2 Sat by Pulse 100 100 100 Oximetry 08/13/19 08/13/19 08/13/19 08:45 09:00 09:15 Temperature Pulse Rate 131 H 122 H 123 H Pulse Rate [ From Monitor] Respiratory 16 18 15 Rate Blood Pressure 107/55 96/49 96/50 O2 Sat by Pulse 100 100 100 Oximetry 08/13/19 08/13/19 08/13/19 09:30 09:46 10:00 Temperature Pulse Rate 126 H 109 H 111 H Pulse Rate [ From Monitor] Respiratory 18 16 23 Rate Blood Pressure 98/52 57/33 57/33 O2 Sat by Pulse 100 100 93 Oximetry 08/13/19 08/13/19 08/13/19 10:15 10:30 10:45 Temperature Pulse Rate 111 H 123 H 126 H Pulse Rate [ From Monitor] Respiratory 18 20 19 Rate Blood Pressure 95/52 97/53 99/54 O2 Sat by Pulse 100 100 100 Oximetry 08/13/19 08/13/19 08/13/19 11:00 11:15 12:00 Temperature 98.7 F Pulse Rate 123 H 117 H Pulse Rate [ From Monitor] Respiratory 17 18 Rate Blood Pressure 94/44 94/55 O2 Sat by Pulse 100 100 Oximetry - Labs CBC & Chem 7: 08/13/19 09:30 08/13/19 13:01 Labs: Abnormal lab results 08/12/19 08/13/19 08/13/19 Range/Units 17:37 09:30 11:45 WBC 17.8 H (4.5-11.0) K/mm3 RBC 2.62 L (3.65-5.03) M/mm3 Hgb 8.0 L (11.8-15.2) gm/dl Hct 24.7 L (35.5-45.6) % RDW 27.0 H (13.2-15.2) % Plt Count 78 L (140-440) K/mm3 PT (12.2-14.9) Sec. INR (0.87-1.13) Sodium (137-145) mmol/L Carbon Dioxide (22-30) mmol/L BUN (9-20) mg/dL Creatinine (0.8-1.5) mg/dL Glucose (75-100) mg/dL POC Glucose 179 H 107 H (70-105) Calcium (8.4-10.2) mg/dL Total Bilirubin (0.1-1.2) mg/dL AST (5-40) units/L Alkaline Phosphatase (35-129) units/L Total Protein (6.3-8.2) g/dL Albumin (3.9-5) g/dL 08/13/19 08/13/19 Range/Units 13:01 13:01 WBC (4.5-11.0) K/mm3 RBC (3.65-5.03) M/mm3 Hgb (11.8-15.2) gm/dl Hct (35.5-45.6) % RDW (13.2-15.2) % Plt Count (140-440) K/mm3 PT 25.2 H (12.2-14.9) Sec. INR 2.34 H (0.87-1.13) Sodium 136 L (137-145) mmol/L Carbon Dioxide 12 L (22-30) mmol/L BUN 73 H (9-20) mg/dL Creatinine 4.5 H (0.8-1.5) mg/dL Glucose 104 H (75-100) mg/dL POC Glucose (70-105) Calcium 6.7 L (8.4-10.2) mg/dL Total Bilirubin 2.50 H (0.1-1.2) mg/dL AST 56 H (5-40) units/L Alkaline Phosphatase 136 H (35-129) units/L Total Protein 4.8 L (6.3-8.2) g/dL Albumin 1.4 L (3.9-5) g/dL Medications & Allergies - Medications Allergies/Adverse Reactions: Allergies Unable to Assess Allergy (Verified 07/04/19 05:14) ams Home Medications: Home Medications Medication Instructions Recorded Confirmed Last Taken Type Lactulose [Cephulac] 20 gm PO QDAY #30 oral.liqd 07/11/19 08/11/19 Unknown Rx Pantoprazole [Protonix TAB] 40 mg PO BID #60 tablet 07/11/19 08/11/19 Unknown Rx Rifaximin [Xifaxan] 550 mg PO BID tablet 07/11/19 08/11/19 Unknown Rx Sodium Bicarbonate 1,300 mg PO TID tablet 07/11/19 08/11/19 Unknown Rx oxyCODONE /ACETAMINOPHEN [Percocet 1 tab PO Q6H PRN #7 tablet 07/11/19 08/11/19 Unknown Rx 5/325 mg] Active Medications: Generic Name Dose Route Start Last Admin Trade Name Freq PRN Reason Stop Dose Admin Albumin Human 25 gm 08/13/19 13:00 08/13/19 13:00 Alburx 25% (Albumin) IV 08/14/19 06:01 25 gm Q6HR FORTINO Administration Dextrose 0 ml 08/11/19 23:00 D50w (25gm) Syringe IV Q30MIN PRN Hypoglycemia Protocol Norepinephrine 4 mg in 250 mls @ 7.5 mls/hr 08/11/19 22:00 08/13/19 13:00 Levophed Drip 4 Mg/Ns 250 Ml IV 24 mcg/min TITR FORTINO 90 mls/hr Administration Protocol 2 MCG/MIN Dextrose/Sodium Chloride 1,000 mls @ 50 mls/hr 08/11/19 23:45 08/12/19 02:20 D5/0.45ns IV 50 mls/hr DIRECT FORTINO Administration Vasopressin 20 unit/ Sodium 101 mls @ 9.09 mls/hr 08/12/19 11:00 08/13/19 09:05 Chloride IV 0.03 units/min TITR FORTINO 9.09 mls/hr Administration Protocol 0.03 UNITS/MIN MEROPENEM/NS 1 GRAM/100 ML 1 gram in 100 mls @ 100 mls/hr 08/12/19 14:30 08/13/19 11:20 Merrem/Ns 1 Gram/100 Ml IV 100 mls/hr Q24HR FORTINO Administration Protocol Lansoprazole 30 mg 08/13/19 10:00 08/13/19 13:06 Prevacid Solutab FEEDTUBE 30 mg BID FORTINO Administration Ondansetron HCl 4 mg 08/11/19 23:13 Zofran IV Q8H PRN Nausea And Vomiting Rifaximin 550 mg 08/13/19 10:00 08/13/19 13:07 Xifaxan PO 550 mg BID FORTINO Administration Sodium Bicarbonate 1,300 mg 08/13/19 14:00 08/13/19 13:01 Sodium Bicarbonate PO 1,300 mg TID FORTINO Administration Sodium Chloride 10 ml 08/12/19 10:00 08/13/19 13:02 Sodium Chloride Flush Syringe 10 Ml IV 10 ml BID FORTINO Administration Sodium Chloride 10 ml 08/11/19 23:13 Sodium Chloride Flush Syringe 10 Ml IV PRN PRN LINE FLUSH
--- NOTE | 2019-08-13 17:04 | Ultrasound Report ---
ULTRASOUND ABDOMEN, COMPLETE INDICATION: Sepsis, alcohol abuse, eval ascites. COMPARISON: None available. FINDINGS: Pancreas: Obscured. Abdominal Aorta: Unremarkable proximally. IVC: Obscured. Liver: Cirrhotic configuration. No focal lesion. Flow hepatofugal. Gallbladder: Sludge. Bile ducts: Normal. Common Bile Duct measures 4 mm. Right Kidney: 2.7 cm upper pole cyst Left Kidney: Limited evaluation unremarkable. Spleen: Limited evaluation unremarkable. Free fluid: Ascites. Additional Findings: None. IMPRESSION: 1. Cirrhotic liver with hepatofugal flow. 2. Gallbladder sludge. 3. Ascites. 4. Limited evaluation. Signer Name: Jasson Chilel MD Signed: 08/13/2019 5:00 PM Workstation Name: [id number]
--- NOTE | 2019-08-13 19:10 | Progress Note ---
Assessment and Plan Impression: * Nonoliguric HERRERA secondary to prerenal azotemia due to volume depletion vs ATN --SCr 1.4mg/dL at d/c on Jul 11, 2019 * Sepsis --Blood cx: NGTD * Encephalopathy * Metabolic acidosis secondary to lactic acidosis * Coagulopathy - INR 2.0 at admission * Thrombocytopenia * Liver cirrhosis * Atrial fibrillation/flutter * Anemia * Hx of alcohol abuse Plan: * No acute need for renal replacement therapy at this time but renal prognosis is guarded * Maintain hewitt catheter placement for strict I/O * Note order for Albumin x 4 doses * Continue po bicarb * Pressors prn to maintain MAP>65 - remains on Levophed * Dose medications for renal function * Avoid potential nephrotoxins * Strict I/O Subjective Date of service: 08/13/19 Objective - Vital Signs Vital signs: Vital Signs - [facility] 08/13/19 08/13/19 08/13/19 07:15 07:25 07:30 Temperature Pulse Rate 127 H 132 H Respiratory 21 20 Rate Blood Pressure 83/50 96/51 O2 Sat by Pulse 99 99 100 Oximetry 08/13/19 08/13/19 08/13/19 07:41 07:45 08:00 Temperature 99.7 F H Pulse Rate 124 H 127 H Respiratory 16 18 Rate Blood Pressure 93/49 103/51 O2 Sat by Pulse 100 100 Oximetry 08/13/19 08/13/19 08/13/19 08:15 08:30 08:45 Temperature Pulse Rate 126 H 128 H 131 H Respiratory 22 18 16 Rate Blood Pressure 104/52 99/54 107/55 O2 Sat by Pulse 100 100 100 Oximetry 08/13/19 08/13/19 08/13/19 09:00 09:15 09:30 Temperature Pulse Rate 122 H 123 H 126 H Respiratory 18 15 18 Rate Blood Pressure 96/49 96/50 98/52 O2 Sat by Pulse 100 100 100 Oximetry 08/13/19 08/13/19 08/13/19 09:46 10:00 10:15 Temperature Pulse Rate 109 H 111 H 111 H Respiratory 16 23 18 Rate Blood Pressure 57/33 57/33 95/52 O2 Sat by Pulse 100 93 100 Oximetry 08/13/19 08/13/19 08/13/19 10:30 10:45 11:00 Temperature Pulse Rate 123 H 126 H 123 H Respiratory 20 19 17 Rate Blood Pressure 97/53 99/54 94/44 O2 Sat by Pulse 100 100 100 Oximetry 08/13/19 08/13/19 08/13/19 11:15 11:30 11:45 Temperature Pulse Rate 117 H 128 H 120 H Respiratory 18 20 17 Rate Blood Pressure 94/55 89/52 95/42 O2 Sat by Pulse 100 100 100 Oximetry 08/13/19 08/13/19 08/13/19 12:00 12:15 12:30 Temperature 98.7 F Pulse Rate 125 H 120 H 115 H Respiratory 21 15 15 Rate Blood Pressure 107/79 92/55 81/45 O2 Sat by Pulse 99 100 100 Oximetry 08/13/19 08/13/19 08/13/19 12:46 13:00 13:15 Temperature Pulse Rate 119 H 123 H 124 H Respiratory 12 20 18 Rate Blood Pressure 92/54 92/54 100/52 O2 Sat by Pulse 100 98 100 Oximetry 08/13/19 08/13/19 08/13/19 13:30 13:45 14:00 Temperature Pulse Rate 121 H 119 H 117 H Respiratory 16 19 16 Rate Blood Pressure 93/46 102/59 103/51 O2 Sat by Pulse 100 96 100 Oximetry 08/13/19 08/13/19 08/13/19 14:16 14:30 14:45 Temperature Pulse Rate 112 H 114 H 110 H Respiratory 14 15 16 Rate Blood Pressure 110/53 110/53 102/59 O2 Sat by Pulse 100 100 100 Oximetry 08/13/19 08/13/19 08/13/19 15:00 15:15 15:30 Temperature Pulse Rate 114 H 101 H 114 H Respiratory 12 10 L 17 Rate Blood Pressure 102/59 102/49 105/55 O2 Sat by Pulse 100 100 100 Oximetry 08/13/19 08/13/19 08/13/19 15:45 16:00 16:15 Temperature 96.4 F L Pulse Rate 115 H 107 H 115 H Respiratory 16 18 18 Rate Blood Pressure 102/50 98/58 103/44 O2 Sat by Pulse 100 100 100 Oximetry 08/13/19 08/13/19 08/13/19 16:30 16:45 17:00 Temperature Pulse Rate 102 H 105 H 104 H Respiratory 19 18 16 Rate Blood Pressure 103/44 102/49 107/52 O2 Sat by Pulse 100 100 100 Oximetry 08/13/19 08/13/19 08/13/19 17:16 17:30 17:45 Temperature Pulse Rate 108 H 112 H 105 H Respiratory 15 14 10 L Rate Blood Pressure 122/88 122/88 105/47 O2 Sat by Pulse 100 100 100 Oximetry 08/13/19 08/13/19 18:00 18:15 Temperature Pulse Rate 108 H 104 H Respiratory 16 10 L Rate Blood Pressure 97/52 95/53 O2 Sat by Pulse 100 100 Oximetry - General Appearance General appearance: well-developed, well-nourished EENT: ATNC Respiratory: Present: Decreased Breath Sounds Cardiology: tachycardia, S1S2 Gastrointestinal: normal, no tenderness, no distended Neurologic: other (nonverbal, moans) Musculoskeletal: other (2+ edema) - Lab 08/13/19 09:30 08/13/19 13:01 Most recent lab results Calcium 6.7 mg/dL (8.4-10.2) L 08/13/19 13:01 Medications & Allergies - Medications Allergies/Adverse Reactions: Allergies Unable to Assess Allergy (Verified 07/04/19 05:14) ams Home Medications: Home Medications Medication Instructions Recorded Confirmed Last Taken Type Lactulose [Cephulac] 20 gm PO QDAY #30 oral.liqd 07/11/19 08/11/19 Unknown Rx Pantoprazole [Protonix TAB] 40 mg PO BID #60 tablet 07/11/19 08/11/19 Unknown Rx Rifaximin [Xifaxan] 550 mg PO BID tablet 07/11/19 08/11/19 Unknown Rx Sodium Bicarbonate 1,300 mg PO TID tablet 07/11/19 08/11/19 Unknown Rx oxyCODONE /ACETAMINOPHEN [Percocet 1 tab PO Q6H PRN #7 tablet 07/11/19 08/11/19 Unknown Rx 5/325 mg] Active Medications: Generic Name Dose Route Start Last Admin Trade Name Freq PRN Reason Stop Dose Admin Albumin Human 25 gm 08/13/19 13:00 08/13/19 18:57 Alburx 25% (Albumin) IV 08/14/19 06:01 25 gm Q6HR FORTINO Administration Dextrose 0 ml 08/11/19 23:00 D50w (25gm) Syringe IV Q30MIN PRN Hypoglycemia Protocol Norepinephrine 4 mg in 250 mls @ 7.5 mls/hr 08/11/19 22:00 08/13/19 13:00 Levophed Drip 4 Mg/Ns 250 Ml IV 24 mcg/min TITR FORTINO 90 mls/hr Administration Protocol 2 MCG/MIN Dextrose/Sodium Chloride 1,000 mls @ 50 mls/hr 08/11/19 23:45 08/12/19 02:20 D5/0.45ns IV 50 mls/hr DIRECT FORTINO Administration Vasopressin 20 unit/ Sodium 101 mls @ 9.09 mls/hr 08/12/19 11:00 08/13/19 18:57 Chloride IV 0.03 units/min TITR FORTINO 9.09 mls/hr Administration Protocol 0.03 UNITS/MIN MEROPENEM/NS 1 GRAM/100 ML 1 gram in 100 mls @ 100 mls/hr 08/12/19 14:30 08/13/19 11:20 Merrem/Ns 1 Gram/100 Ml IV 100 mls/hr Q24HR FORTINO Administration Protocol Lansoprazole 30 mg 08/13/19 10:00 08/13/19 13:06 Prevacid Solutab FEEDTUBE 30 mg BID FORTINO Administration Ondansetron HCl 4 mg 08/11/19 23:13 Zofran IV Q8H PRN Nausea And Vomiting Rifaximin 550 mg 08/13/19 10:00 08/13/19 13:07 Xifaxan PO 550 mg BID FORTINO Administration Sodium Bicarbonate 1,300 mg 08/13/19 14:00 08/13/19 13:01 Sodium Bicarbonate PO 1,300 mg TID FORTINO Administration Sodium Chloride 10 ml 08/12/19 10:00 08/13/19 13:02 Sodium Chloride Flush Syringe 10 Ml IV 10 ml BID FORTINO Administration Sodium Chloride 10 ml 08/11/19 23:13 Sodium Chloride Flush Syringe 10 Ml IV PRN PRN LINE FLUSH
[2019-08-13] MEDS: D5W/0.45% NACL 1,000 ML IV SCH (20:56)
[2019-08-13] MEDS: CEFEPIME/NS 1 GM/100 ML 1 GM/100 ML BAG IV SCH (21:52)
[2019-08-14] MEDS: ALBUMIN HUMAN 25% (25 GM/100 ML) INJ IV SCH ×2 (00:03→05:53)
[2019-08-14] MEDS: NORepinephrine/NS 4 MG-250 ML 4 MG/250 ML BAG IV SCH ×4 (03:00→18:46)
[2019-08-14] MEDS: VASOPRESSIN 20 UNIT in SODIUM CHLORIDE 0.9% 100 ML IV SCH ×2 (05:52→17:36)
[2019-08-14 06:25] LABS: Hematocrit 21.1 % (35.5-45.6); Hemoglobin 6.8 gm/dl (11.8-15.2); Mean Corpuscular HGB Conc 32 % (32-34); Mean Corpuscular Volume 96 fl (84-94); Red Blood Count 2.21 M/mm3 (3.65-5.03)
[2019-08-14 06:39] LABS: Platelet Count 57 K/mm3 (140-440); Red Cell Distribution Width 27.2 % (13.2-15.2)
[2019-08-14 06:43] LABS: Calcium 6.8 mg/dL (8.4-10.2)
[2019-08-14 06:45] LABS: Albumin 2.4 g/dL (3.9-5); Bilirubin,Direct 2.7 mg/dL (0-0.2)
[2019-08-14 08:33] LABS: Anisocytosis 2+; Band Neutrophils # (Manual) 1.1 K/mm3; Basophils % (Manual) 0 % (0.0-1.8); Eosinophils % (Manual) 0 % (0.0-4.3); Macrocytosis 1+; Total Cells Counted 100
[2019-08-14 08:34] LABS: Platelet Estimate Consistent w Auto
[2019-08-14] MEDS: SODIUM BICARBONATE 650 MG TAB PO SCH ×3 (08:54→22:10)
[2019-08-14] MEDS ORDERED: VANCOMYCIN 500 MG in SODIUM CHLORIDE 0.9% 100 ML IV ONE (10:00)
[2019-08-14] MEDS: RIFAXIMIN 550 MG TAB PO SCH ×2 (10:06→22:10)
[2019-08-14] MEDS: LANSOPRAZOLE 30 MG SOLUTAB FEEDTUBE SCH ×2 (10:06→22:10)
[2019-08-14] MEDS: MEROPENEM/NS 1 GRAM/100 ML 1 GRAM/100 ML BAG IV SCH (10:06)
--- NOTE | 2019-08-14 10:06 | Progress Note ---
Assessment and Plan Impression: * Oliguric HERRERA secondary to prerenal azotemia due to volume depletion vs ATN --SCr 1.4mg/dL at d/c on Jul 11, 2019 * Sepsis --Blood cx: NGTD * Encephalopathy * Metabolic acidosis secondary to lactic acidosis * Coagulopathy - INR 2.0 at admission * Thrombocytopenia * Liver cirrhosis * Atrial fibrillation/flutter * Anemia * Hx of alcohol abuse Plan: * AM labs are pending * No acute need for renal replacement therapy at this time but renal prognosis is guarded * Maintain hewitt catheter placement for strict I/O - UOP noted * Gentle IVF, he is s/p Albumin q6h x 4 - last dose this AM * Abx per ID * Continue po bicarb * Pressors prn to maintain MAP>65 * Dose medications for renal function * Avoid potential nephrotoxins * Strict I/O Subjective Date of service: 08/14/19 Interval history: No acute events overnight. AM labs are pending. Objective - Vital Signs Vital signs: Vital Signs - 12hr 08/13/19 08/13/19 08/13/19 22:15 22:30 22:46 Temperature Pulse Rate 118 H 107 H 105 H Pulse Rate [ Right Radial] Respiratory 18 20 22 Rate Blood Pressure 119/64 118/49 90/48 O2 Sat by Pulse 100 100 100 Oximetry 08/13/19 08/13/19 08/13/19 23:00 23:16 23:28 Temperature Pulse Rate 106 H 100 H 118 H Pulse Rate [ Right Radial] Respiratory 18 14 20 Rate Blood Pressure 90/48 121/59 121/59 O2 Sat by Pulse 100 100 100 Oximetry 08/13/19 08/13/19 08/13/19 23:30 23:45 23:52 Temperature 97.4 F L Pulse Rate 111 H 105 H Pulse Rate [ Right Radial] Respiratory 14 19 Rate Blood Pressure 117/68 130/61 O2 Sat by Pulse 100 100 Oximetry 08/14/19 08/14/19 08/14/19 00:00 00:16 00:30 Temperature Pulse Rate 116 H 111 H 114 H Pulse Rate [ Right Radial] Respiratory 19 20 20 Rate Blood Pressure 130/61 115/57 124/65 O2 Sat by Pulse 100 100 100 Oximetry 08/14/19 08/14/19 08/14/19 00:45 01:00 01:15 Temperature Pulse Rate 114 H 116 H 116 H Pulse Rate [ Right Radial] Respiratory 20 20 19 Rate Blood Pressure 118/69 115/74 118/71 O2 Sat by Pulse 100 100 100 Oximetry 08/14/19 08/14/19 08/14/19 01:30 01:46 02:00 Temperature Pulse Rate 106 H 98 H 104 H Pulse Rate [ 105 H Right Radial] Respiratory 22 15 18 Rate Blood Pressure 121/75 121/75 121/75 O2 Sat by Pulse 100 100 100 Oximetry 08/14/19 08/14/19 08/14/19 02:16 02:30 02:46 Temperature Pulse Rate 109 H 107 H 109 H Pulse Rate [ Right Radial] Respiratory 20 19 23 Rate Blood Pressure 93/70 127/56 122/93 O2 Sat by Pulse 100 Oximetry 08/14/19 08/14/19 08/14/19 03:00 03:15 03:30 Temperature Pulse Rate 107 H 92 H 94 H Pulse Rate [ Right Radial] Respiratory 23 16 17 Rate Blood Pressure 122/93 97/68 100/67 O2 Sat by Pulse Oximetry 08/14/19 08/14/19 08/14/19 03:45 04:00 04:15 Temperature 97.4 F L Pulse Rate 95 H 86 87 Pulse Rate [ Right Radial] Respiratory 17 9 L 9 L Rate Blood Pressure 97/54 99/53 100/49 O2 Sat by Pulse 87 83 L Oximetry 08/14/19 08/14/19 08/14/19 04:30 04:45 05:00 Temperature Pulse Rate 87 92 H 88 Pulse Rate [ Right Radial] Respiratory 8 L 15 13 Rate Blood Pressure 94/53 99/58 104/56 O2 Sat by Pulse Oximetry 08/14/19 08/14/19 08/14/19 05:15 05:30 05:45 Temperature Pulse Rate 94 H 94 H 94 H Pulse Rate [ Right Radial] Respiratory 8 L 10 L 14 Rate Blood Pressure 103/61 104/52 116/59 O2 Sat by Pulse Oximetry 08/14/19 08/14/19 08/14/19 06:00 06:15 07:23 Temperature Pulse Rate 83 86 Pulse Rate [ Right Radial] Respiratory 9 L 9 L Rate Blood Pressure 116/59 106/54 O2 Sat by Pulse 92 98 Oximetry - General Appearance General appearance: well-developed, well-nourished EENT: ATNC Respiratory: Present: Decreased Breath Sounds Cardiology: regular, S1S2 Gastrointestinal: normal, no tenderness, no distended Neurologic: other (responds to noxious stimuli, awake, nonverbal) Musculoskeletal: other (2+ edema) - Lab 08/14/19 Unknown 08/14/19 Unknown Most recent lab results Calcium 6.8 mg/dL (8.4-10.2) L 08/14/19 Unknown Medications & Allergies - Medications Allergies/Adverse Reactions: Allergies Unable to Assess Allergy (Verified 07/04/19 05:14) ams Home Medications: Home Medications Medication Instructions Recorded Confirmed Last Taken Type Lactulose [Cephulac] 20 gm PO QDAY #30 oral.liqd 07/11/19 08/11/19 Unknown Rx Pantoprazole [Protonix TAB] 40 mg PO BID #60 tablet 07/11/19 08/11/19 Unknown Rx Rifaximin [Xifaxan] 550 mg PO BID tablet 07/11/19 08/11/19 Unknown Rx Sodium Bicarbonate 1,300 mg PO TID tablet 07/11/19 08/11/19 Unknown Rx oxyCODONE /ACETAMINOPHEN [Percocet 1 tab PO Q6H PRN #7 tablet 07/11/19 08/11/19 Unknown Rx 5/325 mg] Active Medications: Generic Name Dose Route Start Last Admin Trade Name Freq PRN Reason Stop Dose Admin Dextrose 0 ml 08/11/19 23:00 D50w (25gm) Syringe IV Q30MIN PRN Hypoglycemia Protocol Norepinephrine 4 mg in 250 mls @ 7.5 mls/hr 08/11/19 22:00 08/14/19 07:46 Levophed Drip 4 Mg/Ns 250 Ml IV 14 mcg/min TITR FORTINO 52.5 mls/hr Administration Protocol 2 MCG/MIN Dextrose/Sodium Chloride 1,000 mls @ 50 mls/hr 08/11/19 23:45 08/13/19 20:56 D5/0.45ns IV 50 mls/hr DIRECT FORTINO Administration Vasopressin 20 unit/ Sodium 101 mls @ 9.09 mls/hr 08/12/19 11:00 08/14/19 05:52 Chloride IV 0.03 units/min TITR FORTINO 9.09 mls/hr Administration Protocol 0.03 UNITS/MIN MEROPENEM/NS 1 GRAM/100 ML 1 gram in 100 mls @ 100 mls/hr 08/12/19 14:30 08/13/19 11:20 Merrem/Ns 1 Gram/100 Ml IV 100 mls/hr Q24HR FORTINO Administration Protocol Vancomycin HCl 500 mg/ Sodium 110 mls @ 66.667 mls/hr 08/14/19 10:00 Chloride IV 08/14/19 11:38 ONCE ONE Lansoprazole 30 mg 08/13/19 10:00 08/13/19 21:49 Prevacid Solutab FEEDTUBE 30 mg BID FORTINO Administration Ondansetron HCl 4 mg 08/11/19 23:13 Zofran IV Q8H PRN Nausea And Vomiting Rifaximin 550 mg 08/13/19 10:00 08/13/19 21:58 Xifaxan PO 550 mg BID FORTINO Administration Sodium Bicarbonate 1,300 mg 08/13/19 14:00 08/13/19 20:00 Sodium Bicarbonate PO 1,300 mg TID FORTINO Administration Sodium Chloride 10 ml 08/12/19 10:00 08/14/19 00:04 Sodium Chloride Flush Syringe 10 Ml IV 10 ml BID FORTINO Administration Sodium Chloride 10 ml 08/11/19 23:13 08/13/19 21:54 Sodium Chloride Flush Syringe 10 Ml IV 10 ml PRN PRN Administration LINE FLUSH
[2019-08-14 10:24] LABS: Hemoglobin 6.5 gm/dl (11.8-15.2); Mean Corpuscular HGB Conc 33 % (32-34); Mean Corpuscular Volume 95 fl (84-94); Red Blood Count 2.06 M/mm3 (3.65-5.03)
[2019-08-14 10:31] LABS: Hematocrit 19.5 % (35.5-45.6); Platelet Count 45 K/mm3 (140-440); Red Cell Distribution Width 27.1 % (13.2-15.2)
[2019-08-14 10:40] LABS: Albumin 2.7 g/dL (3.9-5); Calcium 6.9 mg/dL (8.4-10.2)
[2019-08-14] MEDS ORDERED: SODIUM CHLORIDE 0.9% 500 ML 500 ML IV NR (12:08)
--- NOTE | 2019-08-14 12:08 | Progress Note ---
Assessment and Plan Cultures: 08/11/2019 blood culture: no growth thus far 08/12/2019 urine culture: no growth A/P: 74-year-old male with extensive alcohol abuse, alcoholic cirrhosis, decubitus ulcers, recent hospitalization, now admitted with: #Shock, hypothermia, likely septic: etiology unclear. Possibly urine given si gnificant pyuria v/s SBP, he has ascites on US. Remains on pressors. #UTI: now has hewitt placed. Has history of VRE UTI, got linezolid in ER, hold off on additional linezolid in the setting of thrombocytopenia and negative urine culture. #Lactic acidosis #Acute renal failure: renally dose abx. #Thrombocytopenia #H/O alcohol abuse, hepatic encephalopathy #Multiple skin tears, malnutrition: recommend wound care. Recs: continue IV Meropenem renally adjusted Vancomycin discontinued ?SBP, consider diagnostic paracentesis with cell count and cultures Prognosis is extremely poor Sherry Knight MD, FACP [facility] C: [phone] O: [phone] F: [phone] Subjective Date of service: 08/14/19 Interval history: Afebrile. Remains encephalopathic. Still on 2 pressors. Objective - Exam Narrative Exam: Physical Exam: Constitutional: opens eyes, but encephalopathic Head, Ears, Nose: Normocephalic, atraumatic. External ears, nose normal Eyes: Conjunctivae/corneas clear. No icterus. No ptosis. Neck: Supple, no meningeal signs Cardiovascular: S1, S2 normal. Respiratory: Good air entry, clear to auscultation bilaterally GI: Soft, non-tender; bowel sounds normal. No peritoneal signs Musculoskeletal: anasarca + Skin: extensive skin tears, purpuric areas on skin Hem/Lymphatic: No palpable cervical or supraclavicular nodes. No lymphangitis Psych: confused, not agitated Neurological: drowsy and encephalopathic - Constitutional Vitals: Vital Signs Temp Pulse Resp BP Pulse Ox 97.3 F L 86 9 L 106/54 98 08/14/19 08:00 08/14/19 06:15 08/14/19 06:15 08/14/19 06:15 08/14/19 07:23 Temperature -Last 24 Hours Temperature 97.3 F Temperature 97.4 F Temperature 97.4 F Temperature 96.4 F - Labs CBC & Chem 7: 08/14/19 Unknown 08/14/19 Unknown Labs: Abnormal lab results 08/13/19 08/13/19 08/13/19 Range/Units 09:30 13:01 13:01 WBC 17.8 H (4.5-11.0) K/mm3 RBC 2.62 L (3.65-5.03) M/mm3 Hgb 8.0 L (11.8-15.2) gm/dl Hct 24.7 L (35.5-45.6) % MCV (84-94) fl RDW 27.0 H (13.2-15.2) % Plt Count 78 L (140-440) K/mm3 Seg Neuts % (Manual) (40.0-70.0) % Lymphocytes % (Manual) (13.4-35.0) % Seg Neutrophils # Man (1.8-7.7) K/mm3 Lymphocytes # (Manual) (1.2-5.4) K/mm3 PT 25.2 H (12.2-14.9) Sec. INR 2.34 H (0.87-1.13) Sodium 136 L (137-145) mmol/L Potassium (3.6-5.0) mmol/L Carbon Dioxide 12 L (22-30) mmol/L BUN 73 H (9-20) mg/dL Creatinine 4.5 H (0.8-1.5) mg/dL Glucose 104 H (75-100) mg/dL POC Glucose (70-105) Calcium 6.7 L (8.4-10.2) mg/dL Total Bilirubin 2.50 H (0.1-1.2) mg/dL Direct Bilirubin (0-0.2) mg/dL AST 56 H (5-40) units/L Alkaline Phosphatase 136 H (35-129) units/L Total Protein 4.8 L (6.3-8.2) g/dL Albumin 1.4 L (3.9-5) g/dL 08/13/19 08/14/19 08/14/19 Range/Units 23:39 05:32 10:00 WBC (4.5-11.0) K/mm3 RBC (3.65-5.03) M/mm3 Hgb (11.8-15.2) gm/dl Hct (35.5-45.6) % MCV (84-94) fl RDW (13.2-15.2) % Plt Count (140-440) K/mm3 Seg Neuts % (Manual) (40.0-70.0) % Lymphocytes % (Manual) (13.4-35.0) % Seg Neutrophils # Man (1.8-7.7) K/mm3 Lymphocytes # (Manual) (1.2-5.4) K/mm3 PT (12.2-14.9) Sec. INR (0.87-1.13) Sodium 135 L (137-145) mmol/L Potassium 3.5 L (3.6-5.0) mmol/L Carbon Dioxide 12 L (22-30) mmol/L BUN 71 H (9-20) mg/dL Creatinine 4.1 H (0.8-1.5) mg/dL Glucose 141 H (75-100) mg/dL POC Glucose 135 H 149 H (70-105) Calcium 6.9 L (8.4-10.2) mg/dL Total Bilirubin 3.60 H (0.1-1.2) mg/dL Direct Bilirubin (0-0.2) mg/dL AST (5-40) units/L Alkaline Phosphatase (35-129) units/L Total Protein 5.4 L (6.3-8.2) g/dL Albumin 2.7 L (3.9-5) g/dL 08/14/19 08/14/19 08/14/19 Range/Units 10:00 Unknown Unknown WBC 11.9 H 14.0 H (4.5-11.0) K/mm3 RBC 2.06 L 2.21 L (3.65-5.03) M/mm3 Hgb 6.5 L 6.8 L (11.8-15.2) gm/dl Hct 19.5 L* 21.1 L (35.5-45.6) % MCV 95 H 96 H (84-94) fl RDW 27.1 H 27.2 H (13.2-15.2) % Plt Count 45 L 57 L (140-440) K/mm3 Seg Neuts % (Manual) 88.0 H (40.0-70.0) % Lymphocytes % (Manual) 3.0 L (13.4-35.0) % Seg Neutrophils # Man 12.3 H (1.8-7.7) K/mm3 Lymphocytes # (Manual) 0.4 L (1.2-5.4) K/mm3 PT (12.2-14.9) Sec. INR (0.87-1.13) Sodium 134 L (137-145) mmol/L Potassium 3.4 L (3.6-5.0) mmol/L Carbon Dioxide 12 L (22-30) mmol/L BUN 73 H (9-20) mg/dL Creatinine 4.0 H (0.8-1.5) mg/dL Glucose 138 H (75-100) mg/dL POC Glucose (70-105) Calcium 6.8 L (8.4-10.2) mg/dL Total Bilirubin (0.1-1.2) mg/dL Direct Bilirubin (0-0.2) mg/dL AST (5-40) units/L Alkaline Phosphatase (35-129) units/L Total Protein (6.3-8.2) g/dL Albumin (3.9-5) g/dL 08/14/19 Range/Units Unknown WBC (4.5-11.0) K/mm3 RBC (3.65-5.03) M/mm3 Hgb (11.8-15.2) gm/dl Hct (35.5-45.6) % MCV (84-94) fl RDW (13.2-15.2) % Plt Count (140-440) K/mm3 Seg Neuts % (Manual) (40.0-70.0) % Lymphocytes % (Manual) (13.4-35.0) % Seg Neutrophils # Man (1.8-7.7) K/mm3 Lymphocytes # (Manual) (1.2-5.4) K/mm3 PT (12.2-14.9) Sec. INR (0.87-1.13) Sodium (137-145) mmol/L Potassium (3.6-5.0) mmol/L Carbon Dioxide (22-30) mmol/L BUN (9-20) mg/dL Creatinine (0.8-1.5) mg/dL Glucose (75-100) mg/dL POC Glucose (70-105) Calcium (8.4-10.2) mg/dL Total Bilirubin 3.70 H (0.1-1.2) mg/dL Direct Bilirubin 2.7 H (0-0.2) mg/dL AST (5-40) units/L Alkaline Phosphatase (35-129) units/L Total Protein 4.9 L (6.3-8.2) g/dL Albumin 2.4 L (3.9-5) g/dL
--- NOTE | 2019-08-14 13:43 | Progress Note ---
Assessment and Plan Assessment and plan: --Anemia; hemoglobin 6.5 Type and cross, transfuse 2 units of PRBC Closely monitor H&H and transfuse additional as needed --Septic Shock : on levophed, and vasopressin Treat the underlying cause Titrate systolic blood pressure to more than 100 --Acute Renal Failure likely vasomotor nephropathy vs ATN nephrology following, monitor renal function --Acute Hepatic Encephalopathy s/p lactulose,ammonia level trending down --Abnormal cadiac enzymes/NSTEMI type II Continue current management supportive care --Hypoglycemia, on D5; improved --Anemia of chronic disease, monitor h/h Transfuse as needed --Thrombocytopenia, due to CLD Closely monitor --Hyponatremia, due to dehydration, on ov fluid --Hypokalemia : replete per protocol and monitor levels --History of cirrhosis of liver: monitor LFT Supportive care --Coagulopathy : Due to cirrhosis liver No evidence of bleeding --Severe protein calorie malnutrition, supportive care Bottom Sprayer following --Multiple different stages decubitus pressure ulcers wound care.Surgical debridement as needed. --DVT prophalaxis with SCD Patient is critically ill, with very poor prognosis Full CODE STATUS, very poor prognosis The high probability of a clinically significant, sudden or life threatening deterioration of the [multiple] system(s) required my full and direct attention, intervention and personal management. The aggregate critical care time was [34] minutes. This time is in addition to time spent performing reported procedures but includes the following: [x] Data Review and interpretation [x] Patient assessment and monitoring of vital signs [x] Documentation [x] Medication orders and management History Interval history: Patient seen and examined in ICU this afternoon medical records reviewed Patient is critically ill , in mild distress Noncommunicative, on Ventimask vital signs reviewed Patient is in septic shock on multiple pressors Hospitalist Physical - Constitutional Vitals: Temp Pulse Resp BP Pulse Ox 97.3 F L 81 8 L 76/42 94 08/14/19 08:00 08/14/19 12:00 08/14/19 12:00 08/14/19 12:00 08/14/19 12:00 General appearance: Present: mild distress, well-nourished, other (Noncommunicative, lethargic) - EENT Eyes: Present: PERRL, EOM intact - Neck Neck: Present: supple, normal ROM - Respiratory Respiratory effort: normal Respiratory: bilateral: diminished, rhonchi, negative: rales, wheezing - Cardiovascular Rhythm: regular Heart Sounds: Present: S1 & S2 - Extremities Extremities: no ischemia Extremity abnormal: edema - Abdominal General gastrointestinal: soft, non-tender, non-distended, normal bowel sounds - Integumentary Integumentary: Present: clear, warm - Psychiatric Psychiatric: appropriate mood/affect, cooperative - Neurologic Neurologic: CNII-XII intact, moves all extremities Results - Labs CBC & Chem 7: 08/14/19 Unknown 08/14/19 Unknown Labs: Laboratory Last Values WBC 14.0 K/mm3 (4.5-11.0) H 08/14/19 Unknown RBC 2.21 M/mm3 (3.65-5.03) L 08/14/19 Unknown Hgb 6.8 gm/dl (11.8-15.2) L 08/14/19 Unknown Hct 21.1 % (35.5-45.6) L 08/14/19 Unknown MCV 96 fl (84-94) H 08/14/19 Unknown MCH 31 pg (28-32) 08/14/19 Unknown MCHC 32 % (32-34) 08/14/19 Unknown RDW 27.2 % (13.2-15.2) H 08/14/19 Unknown Plt Count 57 K/mm3 (140-440) L 08/14/19 Unknown Add Manual Diff Complete 08/14/19 Unknown Total Counted 100 08/14/19 Unknown Seg Neutrophils % Traveling Accountant 08/12/19 05:10 Seg Neuts % (Manual) 88.0 % (40.0-70.0) H 08/14/19 Unknown Band Neutrophils % 8.0 % 08/14/19 Unknown Lymphocytes % (Manual) 3.0 % (13.4-35.0) L 08/14/19 Unknown Reactive Lymphs % (Man) 0 % 08/14/19 Unknown Monocytes % (Manual) 1.0 % (0.0-7.3) 08/14/19 Unknown Eosinophils % (Manual) 0 % (0.0-4.3) 08/14/19 Unknown Basophils % (Manual) 0 % (0.0-1.8) 08/14/19 Unknown Metamyelocytes % 0 % 08/14/19 Unknown Myelocytes % 0 % 08/14/19 Unknown Promyelocytes % 0 % 08/14/19 Unknown Blast Cells % 0 % 08/14/19 Unknown Nucleated RBC % Not Reportable 08/14/19 Unknown Seg Neutrophils # Man 12.3 K/mm3 (1.8-7.7) H 08/14/19 Unknown Band Neutrophils # 1.1 K/mm3 08/14/19 Unknown Lymphocytes # (Manual) 0.4 K/mm3 (1.2-5.4) L 08/14/19 Unknown Abs React Lymphs (Man) 0.0 K/mm3 08/14/19 Unknown Monocytes # (Manual) 0.1 K/mm3 (0.0-0.8) 08/14/19 Unknown Eosinophils # (Manual) 0.0 K/mm3 (0.0-0.4) 08/14/19 Unknown Basophils # (Manual) 0.0 K/mm3 (0.0-0.1) 08/14/19 Unknown Metamyelocytes # 0.0 K/mm3 08/14/19 Unknown Myelocytes # 0.0 K/mm3 08/14/19 Unknown Promyelocytes # 0.0 K/mm3 08/14/19 Unknown Blast Cells # 0.0 K/mm3 08/14/19 Unknown WBC Morphology Not Reportable 08/14/19 Unknown Hypersegmented Neuts Not Reportable 08/14/19 Unknown Hyposegmented Neuts Not Reportable 08/14/19 Unknown Hypogranular Neuts Not Reportable 08/14/19 Unknown Smudge Cells Not Reportable 08/14/19 Unknown Toxic Granulation Not Reportable 08/14/19 Unknown Toxic Vacuolation Not Reportable 08/14/19 Unknown Dohle Bodies Not Reportable 08/14/19 Unknown Pelger-Huet Anomaly Not Reportable 08/14/19 Unknown Pastor Rods Not Reportable 08/14/19 Unknown Platelet Estimate Consistent w auto 08/14/19 Unknown Clumped Platelets Not Reportable 08/14/19 Unknown Plt Clumps, EDTA Not Reportable 08/14/19 Unknown Large Platelets Not Reportable 08/14/19 Unknown Giant Platelets Not Reportable 08/14/19 Unknown Platelet Satelliting Not Reportable 08/14/19 Unknown Plt Morphology Comment Not Reportable 08/14/19 Unknown RBC Morphology Not Reportable 08/14/19 Unknown Dimorphic RBCs Not Reportable 08/14/19 Unknown Polychromasia Not Reportable 08/14/19 Unknown Hypochromasia Not Reportable 08/14/19 Unknown Poikilocytosis Not Reportable 08/14/19 Unknown Anisocytosis 2+ 08/14/19 Unknown Microcytosis Rare 08/14/19 Unknown Macrocytosis 1+ 08/14/19 Unknown Spherocytes Not Reportable 08/14/19 Unknown Pappenheimer Bodies Not Reportable 08/14/19 Unknown Sickle Cells Not Reportable 08/14/19 Unknown Target Cells Not Reportable 08/14/19 Unknown Tear Drop Cells Not Reportable 08/14/19 Unknown Ovalocytes Not Reportable 08/14/19 Unknown Helmet Cells Not Reportable 08/14/19 Unknown [place] Bodies Not Reportable 08/14/19 Unknown Iroquois Rings Not Reportable 08/14/19 Unknown Radha Cells Not Reportable 08/14/19 Unknown Bite Cells Not Reportable 08/14/19 Unknown Crenated Cell Not Reportable 08/14/19 Unknown Elliptocytes Not Reportable 08/14/19 Unknown Acanthocytes (Spur) Not Reportable 08/14/19 Unknown Rouleaux Not Reportable 08/14/19 Unknown Hemoglobin C Crystals Not Reportable 08/14/19 Unknown Schistocytes Not Reportable 08/14/19 Unknown Malaria parasites Not Reportable 08/14/19 Unknown Ranjith Bodies Not Reportable 08/14/19 Unknown Hem Pathologist Commnt No 08/14/19 Unknown PT 25.2 Sec. (12.2-14.9) H 08/13/19 13:01 INR 2.34 (0.87-1.13) H 08/13/19 13:01 APTT 55.3 Sec. (24.2-36.6) H 08/12/19 05:10 POC ABG pH 7.332 (7.35-7.45) L 08/12/19 10:37 POC ABG pCO2 28.3 (35-45) L 08/12/19 10:37 POC ABG pO2 103 (80-105) 08/12/19 10:37 POC ABG HCO3 15.0 (22-26 mml/L) 08/12/19 10:37 POC ABG Total CO2 16 (23-27mmol/L) 08/12/19 10:37 POC ABG O2 Sat 98 08/12/19 10:37 POC ABG Base Excess -11 ((-2) - (+3)mmol/L) 08/12/19 10:37 FiO2 40 % 08/12/19 10:37 Sodium 134 mmol/L (137-145) L 08/14/19 Unknown Potassium 3.4 mmol/L (3.6-5.0) L 08/14/19 Unknown Chloride 102.2 mmol/L (98-107) 08/14/19 Unknown Carbon Dioxide 12 mmol/L (22-30) L 08/14/19 Unknown Anion Gap 23 mmol/L 08/14/19 Unknown BUN 73 mg/dL (9-20) H 08/14/19 Unknown Creatinine 4.0 mg/dL (0.8-1.5) H 08/14/19 Unknown Estimated GFR 15 ml/min 08/14/19 Unknown BUN/Creatinine Ratio 18 % 08/14/19 Unknown Glucose 138 mg/dL (75-100) H 08/14/19 Unknown POC Glucose 149 (70-105) H 08/14/19 05:32 Lactic Acid 2.90 mmol/L (0.7-2.0) H* 08/12/19 06:15 Calcium 6.8 mg/dL (8.4-10.2) L 08/14/19 Unknown Total Bilirubin 3.70 mg/dL (0.1-1.2) H 08/14/19 Unknown Direct Bilirubin 2.7 mg/dL (0-0.2) H 08/14/19 Unknown Indirect Bilirubin 1.0 mg/dL 08/14/19 Unknown AST 36 units/L (5-40) 08/14/19 Unknown ALT 17 units/L (7-56) 08/14/19 Unknown Alkaline Phosphatase 111 units/L (35-129) 08/14/19 Unknown Ammonia 66.0 umol/L (25-60) H 08/12/19 06:15 Total Creatine Kinase 44 units/L (55-170) L 08/12/19 05:10 CK-MB (CK-2) 8.3 ng/mL (0.0-4.0) H 08/12/19 05:10 CK-MB (CK-2) Rel Index 18.8 (0-4) H 08/12/19 05:10 Troponin T 0.077 ng/mL (0.00-0.029) H 08/12/19 05:10 Total Protein 4.9 g/dL (6.3-8.2) L 08/14/19 Unknown Albumin 2.4 g/dL (3.9-5) L 08/14/19 Unknown Albumin/Globulin Ratio 1.0 % 08/14/19 Unknown Triglycerides 93 mg/dL (2-149) 08/11/19 20:11 Cholesterol 168 mg/dL (50-199) 08/11/19 20:11 LDL Cholesterol Direct 140 mg/dL (50-130) H 08/11/19 20:11 HDL Cholesterol 14 mg/dL (40-59) L 08/11/19 20:11 Cholesterol/HDL Ratio 12.00 % 08/11/19 20:11 TSH 2.280 mlU/mL (0.270-4.200) 08/11/19 20:12 Urine Color Vee (Yellow) 08/12/19 02:42 Urine Turbidity Cloudy (Clear) 08/12/19 02:42 Urine pH 6.0 (5.0-7.0) 08/12/19 02:42 Ur Specific [place] 1.010 (1.003-1.030) 08/12/19 02:42 Urine Protein 100 mg/dl mg/dL (Negative) 08/12/19 02:42 Urine Glucose (UA) Neg mg/dL (Negative) 08/12/19 02:42 Urine Ketones Neg mg/dL (Negative) 08/12/19 02:42 Urine Blood Mod (Negative) 08/12/19 02:42 Urine Nitrite Neg (Negative) 08/12/19 02:42 Urine Bilirubin Neg (Negative) 08/12/19 02:42 Urine Urobilinogen < 2.0 mg/dL (<2.0) 08/12/19 02:42 Ur Leukocyte Esterase Lg (Negative) 08/12/19 02:42 Urine WBC (Auto) > 182.0 /HPF (0.0-6.0) H 08/12/19 02:42 Urine RBC (Auto) 103.0 /HPF (0.0-6.0) 08/12/19 02:42 U Epithel Cells (Auto) 5.0 /HPF (0-13.0) 08/12/19 02:42 Urine Bacteria (Auto) 2+ /HPF (Negative) 08/12/19 02:42 Urine WBC Clumps 3+ /HPF 08/12/19 02:42 Urine Mucus 3+ /HPF 08/12/19 02:42 Random Vancomycin 11.1 ug/mL (0-40.0) 08/14/19 Unknown Salicylates < 0.3 mg/dL (2.8-20.0) L 08/11/19 20:11 Acetaminophen < 5.0 ug/mL (10.0-30.0) L 08/11/19 20:11 Plasma/Serum Alcohol < 0.01 % (0-0.07) 08/11/19 20:14 Hepatitis A IgM Ab Non-reactive (NonReactive) 08/13/19 00:30 Hep Bs Antigen Non-reactive (Negative) 08/13/19 00:30 Hep B Core IgM Ab Non-reactive (NonReactive) 08/13/19 00:30 Hepatitis C Antibody Non-reactive (NonReactive) 08/13/19 00:30 Blood Type A NEGATIVE 08/11/19 20:15 Antibody Screen Negative 08/11/19 20:15 Crossmatch See Detail 08/11/19 20:15 Active Medications - Current Medications Current Medications: Generic Name Dose Route Start Last Admin Trade Name Freq PRN Reason Stop Dose Admin Dextrose 0 ml 08/11/19 23:00 D50w (25gm) Syringe IV Q30MIN PRN Hypoglycemia Protocol Norepinephrine 4 mg in 250 mls @ 7.5 mls/hr 08/11/19 22:00 08/14/19 12:58 Levophed Drip 4 Mg/Ns 250 Ml IV 13 mcg/min TITR FORTINO 48.75 mls/hr Administration Protocol 2 MCG/MIN Dextrose/Sodium Chloride 1,000 mls @ 50 mls/hr 08/11/19 23:45 08/13/19 20:56 D5/0.45ns IV 50 mls/hr DIRECT FORTINO Administration Vasopressin 20 unit/ Sodium 101 mls @ 9.09 mls/hr 08/12/19 11:00 08/14/19 05:52 Chloride IV 0.03 units/min TITR FORTINO 9.09 mls/hr Administration Protocol 0.03 UNITS/MIN MEROPENEM/NS 1 GRAM/100 ML 1 gram in 100 mls @ 100 mls/hr 08/12/19 14:30 08/14/19 10:06 Merrem/Ns 1 Gram/100 Ml IV 100 mls/hr Q24HR FORTINO Administration Protocol Sodium Chloride 500 mls @ 0 mls/hr 08/14/19 12:08 Nacl 0.9% 500 Ml IV 08/14/19 23:59 ONCE NR As Directed Lansoprazole 30 mg 08/13/19 10:00 08/14/19 10:06 Prevacid Solutab FEEDTUBE 30 mg BID FORTINO Administration Ondansetron HCl 4 mg 08/11/19 23:13 Zofran IV Q8H PRN Nausea And Vomiting Rifaximin 550 mg 08/13/19 10:00 08/14/19 10:06 Xifaxan PO 550 mg BID FORTINO Administration Sodium Bicarbonate 1,300 mg 08/13/19 14:00 08/14/19 08:54 Sodium Bicarbonate PO 1,300 mg TID FORTINO Administration Sodium Chloride 10 ml 08/12/19 10:00 08/14/19 10:07 Sodium Chloride Flush Syringe 10 Ml IV 10 ml BID FORTINO Administration Sodium Chloride 10 ml 08/11/19 23:13 08/13/19 21:54 Sodium Chloride Flush Syringe 10 Ml IV 10 ml PRN PRN Administration LINE FLUSH Nutrition/Malnutrition Assess - Dietary Evaluation Nutrition/Malnutrition Findings: Nutrition Notes Start: 08/12/19 10:16 Freq: Status: Active Protocol: Document 08/14/19 11:11 DW (Rec: 08/14/19 11:30 DW [email or web address]) Co-Sign 08/14/19 11:11 LM Nutrition Notes Initial or Follow up Assessment Current Diagnosis Acute Kidney Injury Other Pertinent Diagnosis Etoh dependence, cirrhosis, hepatic encephalopathy, 2+ edema, skin tears Current Diet NPO Labs/Tests Reviewed Pertinent Medications Levophed Vasopressin Height 6 ft 2 in Weight 91.7 kg [place] Body Weight (kg) 86.36 BMI 25.9 Subjective/Other Information FU for assesment Reviewed pt chart from hospitalization. Pt diagnosed with malnutrition and had poor intakes while here. Pt still on bipap and NPO d/t pressor medication per nurse Burn Absent Trauma Absent Minimum of two criteria Yes Energy Intake (non-severe) <75% Estimated Energy Requirement >7 days Muscle Mass Mild Depletion (non-severe) Fluid Accumulation Mild (non-severe) #3 Nutrition Diagnosis Inadequate oral intake Etiology bipap and multiple pressors As Evidenced by Signs and Symptoms NPO #2 Nutrition Diagnosis Malnutrition Etiology chronic illness, ETOH dependence As Evidenced by Signs and Symptoms edema, temoral wasting #1 Nutrition Diagnosis Increased nutrient needs ( specify in comment below) Diagnosis Progress(for reassessment Continues documentation) Is patient on ventilator? No Is Patient Ambulatory and/or Out of Bed No REE-([facility]-confined to bed) 1362.004 Additional Notes PRO needs: 110-137g (1.2-1.5g/ kg) Fluid needs: Per MD Nutrition Intervention Change Diet Order: Advance Diet when Medically Able Goal #1 Diet Advancement Goal #2 Wound Healing Anticipated Discharge Needs: Unable to Determine at This Time Follow-Up By: 08/18/19 Additional Comments FU for diet advanced
[2019-08-14] MEDS ORDERED: FUROSEMIDE 20 MG TAB PO ONE (14:15)
--- NOTE | 2019-08-14 15:49 | Progress Note ---
Assessment and Plan 74 y/o male admitted with altered mental state, hypotension, hypothermia and hypoglycemia. 1. Neuro: Still no real improvement in Mental state. Will give blood today. If able to get off levophed, will restart lactulose q2 hrs until BM had and mental state improves. Only if off levo. 2. STat ABG does not show hypercarbia and good Oxygen sats are seen. Will wean Venti-mask. 3. Will place Dobb shazia and restart all home medications with the exception of lactulose and percocets. Still cant feed patient given his pressor requirement. Continue IVF' with dextrose 4. Strict I/O's 5. Added Vasopressin as patient likely has a component of hepatorenal syndrome. Will attempt to wean levophed first. Follow up renal recommendations. May need to given volume. Will attempt to use albumin 25gms IV q6 to see if this will help with BP 6. Patient also coagulopathic. Will given IV vitamin K 10 x 1. need to repeat Coags. Will order for tomorrow and needs a chemistry as well on hepatic panel ordered primary physician Overall prognosis is guarded. Patient presented very similar in June and rebounded well. Hopefully this can happen again. However multiple insults like this will be harder to bounce back from each time they happen. Especially so close in proximity. 08/13 Called daughter Indira today but no answer. Will attempt again later. 7. Reviewed ID note, will attempt bedside diagnostic paracentesis. No further need for Vitamin K as INR did not improve with 10 IV CCT 31 minutes. Subjective Date of service: 08/14/19 Interval history: Mental status not worse today but not better. Still no family present. Remains on Levo and VAso but levo requirement down some. UOP is worsening. h/H has dropped but no evidence of acute bleed. Objective - Constitutional Vitals: Vital Signs - 12hr 08/14/19 08/14/19 08/14/19 04:00 04:15 04:30 Temperature 97.4 F L Pulse Rate 86 87 87 Respiratory 9 L 9 L 8 L Rate Blood Pressure 99/53 100/49 94/53 O2 Sat by Pulse 87 83 L Oximetry 08/14/19 08/14/19 08/14/19 04:45 05:00 05:15 Temperature Pulse Rate 92 H 88 94 H Respiratory 15 13 8 L Rate Blood Pressure 99/58 104/56 103/61 O2 Sat by Pulse Oximetry 08/14/19 08/14/19 08/14/19 05:30 05:45 06:00 Temperature Pulse Rate 94 H 94 H 83 Respiratory 10 L 14 9 L Rate Blood Pressure 104/52 116/59 116/59 O2 Sat by Pulse Oximetry 08/14/19 08/14/19 08/14/19 06:15 06:30 06:45 Temperature Pulse Rate 86 79 80 Respiratory 9 L 8 L 10 L Rate Blood Pressure 106/54 106/54 106/51 O2 Sat by Pulse 92 94 Oximetry 08/14/19 08/14/19 08/14/19 07:00 07:15 07:23 Temperature Pulse Rate 84 87 Respiratory 8 L 8 L Rate Blood Pressure 104/50 94/53 O2 Sat by Pulse 89 98 Oximetry 08/14/19 08/14/19 08/14/19 07:30 07:45 08:00 Temperature 97.3 F L Pulse Rate 81 84 83 Respiratory 9 L 7 L 8 L Rate Blood Pressure 94/53 96/60 96/60 O2 Sat by Pulse 100 Oximetry 08/14/19 08/14/19 08/14/19 08:15 08:30 08:45 Temperature Pulse Rate 86 91 H 91 H Respiratory 7 L 7 L 14 Rate Blood Pressure 108/59 116/62 121/60 O2 Sat by Pulse 94 93 Oximetry 08/14/19 08/14/19 08/14/19 09:00 09:15 09:30 Temperature Pulse Rate 92 H 88 94 H Respiratory 13 12 14 Rate Blood Pressure 121/60 110/65 110/65 O2 Sat by Pulse Oximetry 08/14/19 08/14/19 08/14/19 09:46 10:00 10:16 Temperature Pulse Rate 89 86 92 H Respiratory 13 14 10 L Rate Blood Pressure 91/49 100/62 95/55 O2 Sat by Pulse 79 L Oximetry 08/14/19 08/14/19 08/14/19 10:30 10:45 11:00 Temperature Pulse Rate 94 H 90 86 Respiratory 15 13 13 Rate Blood Pressure 110/73 107/66 109/62 O2 Sat by Pulse 89 Oximetry 08/14/19 08/14/19 08/14/19 11:15 11:30 11:46 Temperature Pulse Rate 95 H 94 H 80 Respiratory 11 L 9 L 8 L Rate Blood Pressure 118/62 109/57 72/38 O2 Sat by Pulse 99 Oximetry 08/14/19 12:00 Temperature Pulse Rate 81 Respiratory 8 L Rate Blood Pressure 76/42 O2 Sat by Pulse 94 Oximetry - Labs CBC & Chem 7: 08/14/19 Unknown 08/14/19 Unknown Labs: Abnormal lab results 08/11/19 08/13/19 08/14/19 Range/Units 20:15 23:39 05:32 WBC (4.5-11.0) K/mm3 RBC (3.65-5.03) M/mm3 Hgb (11.8-15.2) gm/dl Hct (35.5-45.6) % MCV (84-94) fl RDW (13.2-15.2) % Plt Count (140-440) K/mm3 Seg Neuts % (Manual) (40.0-70.0) % Lymphocytes % (Manual) (13.4-35.0) % Seg Neutrophils # Man (1.8-7.7) K/mm3 Lymphocytes # (Manual) (1.2-5.4) K/mm3 Sodium (137-145) mmol/L Potassium (3.6-5.0) mmol/L Carbon Dioxide (22-30) mmol/L BUN (9-20) mg/dL Creatinine (0.8-1.5) mg/dL Glucose (75-100) mg/dL POC Glucose 135 H 149 H (70-105) Calcium (8.4-10.2) mg/dL Total Bilirubin (0.1-1.2) mg/dL Direct Bilirubin (0-0.2) mg/dL Total Protein (6.3-8.2) g/dL Albumin (3.9-5) g/dL Crossmatch See Detail 08/14/19 08/14/19 08/14/19 Range/Units 10:00 10:00 Unknown WBC 11.9 H (4.5-11.0) K/mm3 RBC 2.06 L (3.65-5.03) M/mm3 Hgb 6.5 L (11.8-15.2) gm/dl Hct 19.5 L* (35.5-45.6) % MCV 95 H (84-94) fl RDW 27.1 H (13.2-15.2) % Plt Count 45 L (140-440) K/mm3 Seg Neuts % (Manual) (40.0-70.0) % Lymphocytes % (Manual) (13.4-35.0) % Seg Neutrophils # Man (1.8-7.7) K/mm3 Lymphocytes # (Manual) (1.2-5.4) K/mm3 Sodium 135 L 134 L (137-145) mmol/L Potassium 3.5 L 3.4 L (3.6-5.0) mmol/L Carbon Dioxide 12 L 12 L (22-30) mmol/L BUN 71 H 73 H (9-20) mg/dL Creatinine 4.1 H 4.0 H (0.8-1.5) mg/dL Glucose 141 H 138 H (75-100) mg/dL POC Glucose (70-105) Calcium 6.9 L 6.8 L (8.4-10.2) mg/dL Total Bilirubin 3.60 H (0.1-1.2) mg/dL Direct Bilirubin (0-0.2) mg/dL Total Protein 5.4 L (6.3-8.2) g/dL Albumin 2.7 L (3.9-5) g/dL Crossmatch 08/14/19 08/14/19 Range/Units Unknown Unknown WBC 14.0 H (4.5-11.0) K/mm3 RBC 2.21 L (3.65-5.03) M/mm3 Hgb 6.8 L (11.8-15.2) gm/dl Hct 21.1 L (35.5-45.6) % MCV 96 H (84-94) fl RDW 27.2 H (13.2-15.2) % Plt Count 57 L (140-440) K/mm3 Seg Neuts % (Manual) 88.0 H (40.0-70.0) % Lymphocytes % (Manual) 3.0 L (13.4-35.0) % Seg Neutrophils # Man 12.3 H (1.8-7.7) K/mm3 Lymphocytes # (Manual) 0.4 L (1.2-5.4) K/mm3 Sodium (137-145) mmol/L Potassium (3.6-5.0) mmol/L Carbon Dioxide (22-30) mmol/L BUN (9-20) mg/dL Creatinine (0.8-1.5) mg/dL Glucose (75-100) mg/dL POC Glucose (70-105) Calcium (8.4-10.2) mg/dL Total Bilirubin 3.70 H (0.1-1.2) mg/dL Direct Bilirubin 2.7 H (0-0.2) mg/dL Total Protein 4.9 L (6.3-8.2) g/dL Albumin 2.4 L (3.9-5) g/dL Crossmatch Medications & Allergies - Medications Allergies/Adverse Reactions: Allergies Unable to Assess Allergy (Verified 07/04/19 05:14) ams Home Medications: Home Medications Medication Instructions Recorded Confirmed Last Taken Type Lactulose [Cephulac] 20 gm PO QDAY #30 oral.liqd 07/11/19 08/11/19 Unknown Rx Pantoprazole [Protonix TAB] 40 mg PO BID #60 tablet 07/11/19 08/11/19 Unknown Rx Rifaximin [Xifaxan] 550 mg PO BID tablet 07/11/19 08/11/19 Unknown Rx Sodium Bicarbonate 1,300 mg PO TID tablet 07/11/19 08/11/19 Unknown Rx oxyCODONE /ACETAMINOPHEN [Percocet 1 tab PO Q6H PRN #7 tablet 07/11/19 08/11/19 Unknown Rx 5/325 mg] Active Medications: Generic Name Dose Route Start Last Admin Trade Name Freq PRN Reason Stop Dose Admin Dextrose 0 ml 08/11/19 23:00 D50w (25gm) Syringe IV Q30MIN PRN Hypoglycemia Protocol Norepinephrine 4 mg in 250 mls @ 7.5 mls/hr 08/11/19 22:00 08/14/19 12:58 Levophed Drip 4 Mg/Ns 250 Ml IV 13 mcg/min TITR FORTINO 48.75 mls/hr Administration Protocol 2 MCG/MIN Dextrose/Sodium Chloride 1,000 mls @ 50 mls/hr 08/11/19 23:45 08/13/19 20:56 D5/0.45ns IV 50 mls/hr DIRECT FORTINO Administration Vasopressin 20 unit/ Sodium 101 mls @ 9.09 mls/hr 08/12/19 11:00 08/14/19 05:52 Chloride IV 0.03 units/min TITR FORTINO 9.09 mls/hr Administration Protocol 0.03 UNITS/MIN MEROPENEM/NS 1 GRAM/100 ML 1 gram in 100 mls @ 100 mls/hr 08/12/19 14:30 08/14/19 10:06 Merrem/Ns 1 Gram/100 Ml IV 100 mls/hr Q24HR FORTINO Administration Protocol Sodium Chloride 500 mls @ 0 mls/hr 08/14/19 12:08 Nacl 0.9% 500 Ml IV 08/14/19 23:59 ONCE NR As Directed Lansoprazole 30 mg 08/13/19 10:00 08/14/19 10:06 Prevacid Solutab FEEDTUBE 30 mg BID FORTINO Administration Ondansetron HCl 4 mg 08/11/19 23:13 Zofran IV Q8H PRN Nausea And Vomiting Rifaximin 550 mg 08/13/19 10:00 08/14/19 10:06 Xifaxan PO 550 mg BID FORTINO Administration Sodium Bicarbonate 1,300 mg 08/13/19 14:00 08/14/19 08:54 Sodium Bicarbonate PO 1,300 mg TID FORTINO Administration Sodium Chloride 10 ml 08/12/19 10:00 08/14/19 10:07 Sodium Chloride Flush Syringe 10 Ml IV 10 ml BID FORTINO Administration Sodium Chloride 10 ml 08/11/19 23:13 08/13/19 21:54 Sodium Chloride Flush Syringe 10 Ml IV 10 ml PRN PRN Administration LINE FLUSH
--- NOTE | 2019-08-14 16:13 | Electroencephalogram Report ---
Electroencephalogram EEG Date of exam: 08/14/19 History: Confusion Description: The waking background shows slow rhythm of [4-5 ] Hz which is symmetrical and bilaterally reactive. also was noted frequent ritchie high voltage through out the recording at rate 9Hz per 10/second During drowsiness, there is attenuation of the background rhythms. pt was with eyes open most off the recording not follow command No sleep was noted Interpretation: This is abnormal record 1- diffuse slowing in 4-5 hxz through out the recording 2- Recurent ritchie looking like activity ? artifact versus , myoclonus this finding is suggestive of encephalopathic process and or possible underlying myoclonus ? if seizure is a possibility trial of ativan Iv should be attempted clinical correlation is in order
[2019-08-14] MEDS: D5W/0.45% NACL 1,000 ML IV SCH (19:18)
[2019-08-14] MEDS ORDERED: SODIUM CHLORIDE 0.9% 500 ML 500 ML IV ONE (20:47)
[2019-08-15] MEDS: NORepinephrine/NS 4 MG-250 ML 4 MG/250 ML BAG IV SCH ×2 (03:17→16:57)
[2019-08-15] MEDS: VASOPRESSIN 20 UNIT in SODIUM CHLORIDE 0.9% 100 ML IV SCH ×2 (03:18→15:30)
[2019-08-15 04:52] LABS: Hematocrit 28.6 % (35.5-45.6); Hemoglobin 9.4 gm/dl (11.8-15.2); Mean Corpuscular HGB Conc 33 % (32-34); Mean Corpuscular Volume 93 fl (84-94); Red Blood Count 3.09 M/mm3 (3.65-5.03)
[2019-08-15 05:03] LABS: Platelet Count 39 K/mm3 (140-440); Red Cell Distribution Width 23.8 % (13.2-15.2)
[2019-08-15 05:15] LABS: Albumin 2.5 g/dL (3.9-5); Calcium 6.8 mg/dL (8.4-10.2)
[2019-08-15] MEDS: MEROPENEM/NS 1 GRAM/100 ML 1 GRAM/100 ML BAG IV SCH (09:34)
[2019-08-15] MEDS: RIFAXIMIN 550 MG TAB PO SCH ×2 (09:34→22:33)
[2019-08-15] MEDS: LANSOPRAZOLE 30 MG SOLUTAB FEEDTUBE SCH ×2 (09:34→22:33)
[2019-08-15] MEDS: SODIUM BICARBONATE 650 MG TAB PO SCH ×3 (10:15→22:33)
[2019-08-15] MEDS ORDERED: POTASSIUM CHLORIDE 20 MEQ PACKET FEEDTUBE SCH (11:22)
--- NOTE | 2019-08-15 11:22 | Progress Note ---
Assessment and Plan Assessment and plan: --Anemia; hemoglobin 6.5 - 9.4 S/P 2 units of PRBC transfusion Hb Closely monitor H&H and transfuse additional as needed --Septic Shock : on levophed, and vasopressin Treat the underlying cause Titrate systolic blood pressure to more than 100 --Acute Renal Failure likely vasomotor nephropathy vs ATN nephrology following, monitor renal function --Acute Hepatic Encephalopathy s/p lactulose,ammonia level trending down --Abnormal cadiac enzymes/NSTEMI type II Continue current management supportive care --Hypoglycemia, on D5; improved --Anemia of chronic disease, monitor h/h Transfuse as needed --Thrombocytopenia, due to CLD Closely monitor --Hyponatremia, due to dehydration, on ov fluid --Hypokalemia : replete per protocol and monitor levels --History of cirrhosis of liver: monitor LFT Supportive care --Coagulopathy : Due to cirrhosis liver No evidence of bleeding --Severe protein calorie malnutrition, supportive care Liaison Engineer following --Multiple different stages decubitus pressure ulcers wound care.Surgical debridement as needed. --DVT prophalaxis with SCD Patient is critically ill, with very poor prognosis Full CODE STATUS, very poor prognosis The high probability of a clinically significant, sudden or life threatening deterioration of the [multiple] system(s) required my full and direct attention, intervention and personal management. The aggregate critical care time was [34] minutes. This time is in addition to time spent performing reported procedures but includes the following: [x] Data Review and interpretation [x] Patient assessment and monitoring of vital signs [x] Documentation [x] Medication orders and management History Interval history: Patient seen and examined in ICU this morning medical records reviewed Patient is critically ill on multiple vasopressor source Remains hypotensive On Ventimask, Vital signs reviewed Hospitalist Physical - Constitutional Vitals: Temp Pulse Resp BP Pulse Ox 95.9 F L 90 10 L 100/72 99 08/15/19 08:00 08/15/19 11:00 08/15/19 11:00 08/15/19 11:00 08/15/19 11:00 General appearance: Present: mild distress, well-nourished, other (Noncommunicative, lethargic) - EENT Eyes: Present: PERRL, EOM intact - Neck Neck: Present: supple, normal ROM - Respiratory Respiratory effort: labored Respiratory: bilateral: diminished, rhonchi, negative: rales, wheezing - Cardiovascular Rhythm: regular Heart Sounds: Present: S1 & S2 - Extremities Extremities: no ischemia, No edema - Abdominal General gastrointestinal: soft, non-tender, non-distended, normal bowel sounds - Integumentary Integumentary: Present: clear, warm - Psychiatric Psychiatric: other (noncommunicative) - Neurologic Neurologic: moves all extremities Results - Labs CBC & Chem 7: 08/15/19 04:15 08/15/19 04:15 Labs: Laboratory Last Values WBC 13.0 K/mm3 (4.5-11.0) H 08/15/19 04:15 RBC 3.09 M/mm3 (3.65-5.03) L 08/15/19 04:15 Hgb 9.4 gm/dl (11.8-15.2) L 08/15/19 04:15 Hct 28.6 % (35.5-45.6) L D 08/15/19 04:15 MCV 93 fl (84-94) 08/15/19 04:15 MCH 30 pg (28-32) 08/15/19 04:15 MCHC 33 % (32-34) 08/15/19 04:15 RDW 23.8 % (13.2-15.2) H 08/15/19 04:15 Plt Count 39 K/mm3 (140-440) L 08/15/19 04:15 Add Manual Diff Complete 08/14/19 Unknown Total Counted 100 08/14/19 Unknown Seg Neutrophils % Trimmer Machine Operator 08/12/19 05:10 Seg Neuts % (Manual) 88.0 % (40.0-70.0) H 08/14/19 Unknown Band Neutrophils % 8.0 % 08/14/19 Unknown Lymphocytes % (Manual) 3.0 % (13.4-35.0) L 08/14/19 Unknown Reactive Lymphs % (Man) 0 % 08/14/19 Unknown Monocytes % (Manual) 1.0 % (0.0-7.3) 08/14/19 Unknown Eosinophils % (Manual) 0 % (0.0-4.3) 08/14/19 Unknown Basophils % (Manual) 0 % (0.0-1.8) 08/14/19 Unknown Metamyelocytes % 0 % 08/14/19 Unknown Myelocytes % 0 % 08/14/19 Unknown Promyelocytes % 0 % 08/14/19 Unknown Blast Cells % 0 % 08/14/19 Unknown Nucleated RBC % Not Reportable 08/14/19 Unknown Seg Neutrophils # Man 12.3 K/mm3 (1.8-7.7) H 08/14/19 Unknown Band Neutrophils # 1.1 K/mm3 08/14/19 Unknown Lymphocytes # (Manual) 0.4 K/mm3 (1.2-5.4) L 08/14/19 Unknown Abs React Lymphs (Man) 0.0 K/mm3 08/14/19 Unknown Monocytes # (Manual) 0.1 K/mm3 (0.0-0.8) 08/14/19 Unknown Eosinophils # (Manual) 0.0 K/mm3 (0.0-0.4) 08/14/19 Unknown Basophils # (Manual) 0.0 K/mm3 (0.0-0.1) 08/14/19 Unknown Metamyelocytes # 0.0 K/mm3 08/14/19 Unknown Myelocytes # 0.0 K/mm3 08/14/19 Unknown Promyelocytes # 0.0 K/mm3 08/14/19 Unknown Blast Cells # 0.0 K/mm3 08/14/19 Unknown WBC Morphology Not Reportable 08/14/19 Unknown Hypersegmented Neuts Not Reportable 08/14/19 Unknown Hyposegmented Neuts Not Reportable 08/14/19 Unknown Hypogranular Neuts Not Reportable 08/14/19 Unknown Smudge Cells Not Reportable 08/14/19 Unknown Toxic Granulation Not Reportable 08/14/19 Unknown Toxic Vacuolation Not Reportable 08/14/19 Unknown Dohle Bodies Not Reportable 08/14/19 Unknown Pelger-Huet Anomaly Not Reportable 08/14/19 Unknown Pastor Rods Not Reportable 08/14/19 Unknown Platelet Estimate Consistent w auto 08/14/19 Unknown Clumped Platelets Not Reportable 08/14/19 Unknown Plt Clumps, EDTA Not Reportable 08/14/19 Unknown Large Platelets Not Reportable 08/14/19 Unknown Giant Platelets Not Reportable 08/14/19 Unknown Platelet Satelliting Not Reportable 08/14/19 Unknown Plt Morphology Comment Not Reportable 08/14/19 Unknown RBC Morphology Not Reportable 08/14/19 Unknown Dimorphic RBCs Not Reportable 08/14/19 Unknown Polychromasia Not Reportable 08/14/19 Unknown Hypochromasia Not Reportable 08/14/19 Unknown Poikilocytosis Not Reportable 08/14/19 Unknown Anisocytosis 2+ 08/14/19 Unknown Microcytosis Rare 08/14/19 Unknown Macrocytosis 1+ 08/14/19 Unknown Spherocytes Not Reportable 08/14/19 Unknown Pappenheimer Bodies Not Reportable 08/14/19 Unknown Sickle Cells Not Reportable 08/14/19 Unknown Target Cells Not Reportable 08/14/19 Unknown Tear Drop Cells Not Reportable 08/14/19 Unknown Ovalocytes Not Reportable 08/14/19 Unknown Helmet Cells Not Reportable 08/14/19 Unknown [place] Bodies Not Reportable 08/14/19 Unknown [place] Rings Not Reportable 08/14/19 Unknown [place] Cells Not Reportable 08/14/19 Unknown Bite Cells Not Reportable 08/14/19 Unknown Crenated Cell Not Reportable 08/14/19 Unknown Elliptocytes Not Reportable 08/14/19 Unknown Acanthocytes (Spur) Not Reportable 08/14/19 Unknown Rouleaux Not Reportable 08/14/19 Unknown Hemoglobin C Crystals Not Reportable 08/14/19 Unknown Schistocytes Not Reportable 08/14/19 Unknown Malaria parasites Not Reportable 08/14/19 Unknown Ranjith Bodies Not Reportable 08/14/19 Unknown Hem Pathologist Commnt No 08/14/19 Unknown PT 25.2 Sec. (12.2-14.9) H 08/13/19 13:01 INR 2.34 (0.87-1.13) H 08/13/19 13:01 APTT 55.3 Sec. (24.2-36.6) H 08/12/19 05:10 POC ABG pH 7.332 (7.35-7.45) L 08/12/19 10:37 POC ABG pCO2 28.3 (35-45) L 08/12/19 10:37 POC ABG pO2 103 (80-105) 08/12/19 10:37 POC ABG HCO3 15.0 (22-26 mml/L) 08/12/19 10:37 POC ABG Total CO2 16 (23-27mmol/L) 08/12/19 10:37 POC ABG O2 Sat 98 08/12/19 10:37 POC ABG Base Excess -11 ((-2) - (+3)mmol/L) 08/12/19 10:37 FiO2 40 % 08/12/19 10:37 Sodium 137 mmol/L (137-145) 08/15/19 04:15 Potassium 3.2 mmol/L (3.6-5.0) L 08/15/19 04:15 Chloride 104.9 mmol/L (98-107) 08/15/19 04:15 Carbon Dioxide 12 mmol/L (22-30) L 08/15/19 04:15 Anion Gap 23 mmol/L 08/15/19 04:15 BUN 69 mg/dL (9-20) H 08/15/19 04:15 Creatinine 4.0 mg/dL (0.8-1.5) H 08/15/19 04:15 Estimated GFR 15 ml/min 08/15/19 04:15 BUN/Creatinine Ratio 17 % 08/15/19 04:15 Glucose 125 mg/dL (75-100) H 08/15/19 04:15 POC Glucose 143 (70-105) H 08/15/19 05:46 Lactic Acid 2.90 mmol/L (0.7-2.0) H* 08/12/19 06:15 Calcium 6.8 mg/dL (8.4-10.2) L 08/15/19 04:15 Total Bilirubin 3.50 mg/dL (0.1-1.2) H 08/15/19 04:15 Direct Bilirubin 2.7 mg/dL (0-0.2) H 08/14/19 Unknown Indirect Bilirubin 1.0 mg/dL 08/14/19 Unknown AST 28 units/L (5-40) 08/15/19 04:15 ALT 15 units/L (7-56) 08/15/19 04:15 Alkaline Phosphatase 103 units/L (35-129) 08/15/19 04:15 Ammonia 66.0 umol/L (25-60) H 08/12/19 06:15 Total Creatine Kinase 44 units/L (55-170) L 08/12/19 05:10 CK-MB (CK-2) 8.3 ng/mL (0.0-4.0) H 08/12/19 05:10 CK-MB (CK-2) Rel Index 18.8 (0-4) H 08/12/19 05:10 Troponin T 0.077 ng/mL (0.00-0.029) H 08/12/19 05:10 Total Protein 5.2 g/dL (6.3-8.2) L 08/15/19 04:15 Albumin 2.5 g/dL (3.9-5) L 08/15/19 04:15 Albumin/Globulin Ratio 0.9 % 08/15/19 04:15 Triglycerides 93 mg/dL (2-149) 08/11/19 20:11 Cholesterol 168 mg/dL (50-199) 08/11/19 20:11 LDL Cholesterol Direct 140 mg/dL (50-130) H 08/11/19 20:11 HDL Cholesterol 14 mg/dL (40-59) L 08/11/19 20:11 Cholesterol/HDL Ratio 12.00 % 08/11/19 20:11 TSH 2.280 mlU/mL (0.270-4.200) 08/11/19 20:12 Urine Color Vee (Yellow) 08/12/19 02:42 Urine Turbidity Cloudy (Clear) 08/12/19 02:42 Urine pH 6.0 (5.0-7.0) 08/12/19 02:42 Ur Specific [place] 1.010 (1.003-1.030) 08/12/19 02:42 Urine Protein 100 mg/dl mg/dL (Negative) 08/12/19 02:42 Urine Glucose (UA) Neg mg/dL (Negative) 08/12/19 02:42 Urine Ketones Neg mg/dL (Negative) 08/12/19 02:42 Urine Blood Mod (Negative) 08/12/19 02:42 Urine Nitrite Neg (Negative) 08/12/19 02:42 Urine Bilirubin Neg (Negative) 08/12/19 02:42 Urine Urobilinogen < 2.0 mg/dL (<2.0) 08/12/19 02:42 Ur Leukocyte Esterase Lg (Negative) 08/12/19 02:42 Urine WBC (Auto) > 182.0 /HPF (0.0-6.0) H 08/12/19 02:42 Urine RBC (Auto) 103.0 /HPF (0.0-6.0) 08/12/19 02:42 U Epithel Cells (Auto) 5.0 /HPF (0-13.0) 08/12/19 02:42 Urine Bacteria (Auto) 2+ /HPF (Negative) 08/12/19 02:42 Urine WBC Clumps 3+ /HPF 08/12/19 02:42 Urine Mucus 3+ /HPF 08/12/19 02:42 Random Vancomycin 11.1 ug/mL (0-40.0) 08/14/19 Unknown Salicylates < 0.3 mg/dL (2.8-20.0) L 08/11/19 20:11 Acetaminophen < 5.0 ug/mL (10.0-30.0) L 08/11/19 20:11 Plasma/Serum Alcohol < 0.01 % (0-0.07) 08/11/19 20:14 Hepatitis A IgM Ab Non-reactive (NonReactive) 08/13/19 00:30 Hep Bs Antigen Non-reactive (Negative) 08/13/19 00:30 Hep B Core IgM Ab Non-reactive (NonReactive) 08/13/19 00:30 Hepatitis C Antibody Non-reactive (NonReactive) 08/13/19 00:30 Blood Type A NEGATIVE 08/14/19 20:30 Antibody Screen Negative 08/14/19 20:30 Crossmatch See Detail 08/14/19 20:30 Active Medications - Current Medications Current Medications: Generic Name Dose Route Start Last Admin Trade Name Freq PRN Reason Stop Dose Admin Dextrose 0 ml 08/11/19 23:00 D50w (25gm) Syringe IV Q30MIN PRN Hypoglycemia Protocol Norepinephrine 4 mg in 250 mls @ 7.5 mls/hr 08/11/19 22:00 08/15/19 07:47 Levophed Drip 4 Mg/Ns 250 Ml IV 6 mcg/min TITR FORTINO 22.5 mls/hr Titration Protocol 2 MCG/MIN Dextrose/Sodium Chloride 1,000 mls @ 50 mls/hr 08/11/19 23:45 08/14/19 19:18 D5/0.45ns IV 50 mls/hr DIRECT FORTINO Administration Vasopressin 20 unit/ Sodium 101 mls @ 9.09 mls/hr 08/12/19 11:00 08/15/19 07:48 Chloride IV 0.03 units/min TITR FORTINO 9.09 mls/hr Titration Protocol 0.03 UNITS/MIN MEROPENEM/NS 1 GRAM/100 ML 1 gram in 100 mls @ 100 mls/hr 08/12/19 14:30 08/15/19 09:34 Merrem/Ns 1 Gram/100 Ml IV 100 mls/hr Q24HR FORTINO Administration Protocol Lansoprazole 30 mg 08/13/19 10:00 08/15/19 09:34 Prevacid Solutab FEEDTUBE 30 mg BID FORTINO Administration Ondansetron HCl 4 mg 08/11/19 23:13 Zofran IV Q8H PRN Nausea And Vomiting Rifaximin 550 mg 08/13/19 10:00 08/15/19 09:34 Xifaxan PO 550 mg BID FORTINO Administration Sodium Bicarbonate 1,300 mg 08/13/19 14:00 08/15/19 10:15 Sodium Bicarbonate PO 1,300 mg TID FOTRINO Administration Sodium Chloride 10 ml 08/12/19 10:00 08/15/19 10:16 Sodium Chloride Flush Syringe 10 Ml IV 10 ml BID FORTINO Administration Sodium Chloride 10 ml 08/11/19 23:13 08/13/19 21:54 Sodium Chloride Flush Syringe 10 Ml IV 10 ml PRN PRN Administration LINE FLUSH Nutrition/Malnutrition Assess - Dietary Evaluation Nutrition/Malnutrition Findings: Nutrition Notes Start: 08/12/19 10:16 Freq: Status: Active Protocol: Document 08/14/19 11:11 DW (Rec: 08/14/19 11:30 DW [email or web address]) Co-Sign 08/14/19 11:11 LM Nutrition Notes Initial or Follow up Assessment Current Diagnosis Acute Kidney Injury Other Pertinent Diagnosis Etoh dependence, cirrhosis, hepatic encephalopathy, 2+ edema, skin tears Current Diet NPO Labs/Tests Reviewed Pertinent Medications Levophed Vasopressin Height 6 ft 2 in Weight 91.7 kg [place] Body Weight (kg) 86.36 BMI 25.9 Subjective/Other Information FU for assesment Reviewed pt chart from hospitalization. Pt diagnosed with malnutrition and had poor intakes while here. Pt still on bipap and NPO d/t pressor medication per nurse Burn Absent Trauma Absent Minimum of two criteria Yes Energy Intake (non-severe) <75% Estimated Energy Requirement >7 days Muscle Mass Mild Depletion (non-severe) Fluid Accumulation Mild (non-severe) #3 Nutrition Diagnosis Inadequate oral intake Etiology bipap and multiple pressors As Evidenced by Signs and Symptoms NPO #2 Nutrition Diagnosis Malnutrition Etiology chronic illness, ETOH dependence As Evidenced by Signs and Symptoms edema, temoral wasting #1 Nutrition Diagnosis Increased nutrient needs ( specify in comment below) Diagnosis Progress(for reassessment Continues documentation) Is patient on ventilator? No Is Patient Ambulatory and/or Out of Bed No REE-([facility]-confined to bed) [phone] Additional Notes PRO needs: 110-137g (1.2-1.5g/ kg) Fluid needs: Per MD Nutrition Intervention Change Diet Order: Advance Diet when Medically Able Goal #1 Diet Advancement Goal #2 Wound Healing Anticipated Discharge Needs: Unable to Determine at This Time Follow-Up By: 08/18/19 Additional Comments FU for diet advanced
--- NOTE | 2019-08-15 12:50 | Progress Note ---
Assessment and Plan 74 y/o male admitted with altered mental state, hypotension, hypothermia and hypoglycemia. 1. Neuro: Blood may have helped mentation. Definitely helped with pressor requirement. If levo can be weaned off, will start lactulose [id number] until BM then can be spaced out to maybe q6 or q8. Goal would be 3 BM's daily. 2. STat ABG does not show hypercarbia and good Oxygen sats are seen. Will wean Venti-mask. Tried by patient is mouth breathing right now. 3. Will feed patient starting today if we can get levophed of. Still on Max vasopressin 4. Strict I/O's 5. Added Vasopressin as patient likely has a component of hepatorenal syndrome. Will attempt to wean levophed first. Follow up renal recommendations. May need to given volume. Will attempt to use albumin 25gms IV q6 to see if this will help with BP. Can likely stop Albumin. 6. Patient also coagulopathic. Will given IV vitamin K 10 x 1. need to repeat Coags. Will order for tomorrow and needs a chemistry as well on hepatic panel ordered primary physician Overall prognosis is guarded. Patient presented very similar in June and rebounded well. Hopefully this can happen again. However multiple insults like this will be harder to bounce back from each time they happen. Especially so close in proximity. 08/13 Called daughter Indira today but no answer. Will attempt again later. 7. Reviewed ID note, will attempt bedside diagnostic paracentesis. No further need for Vitamin K as INR did not improve with 10 IV. Will attempt to do this later today or tomorrow morning. Will send for cultures. CCT 31 minutes. Subjective Date of service: 08/15/19 Interval history: Patient is more awake today. Responds to questions. Nods head. Sitting up. Still on Biar hugger but levo down to 4mcgs. EEG read. appreciate neuro help. Objective - Constitutional Vitals: Vital Signs - 12hr 08/15/19 08/15/19 08/15/19 01:00 01:16 01:30 Temperature Pulse Rate 82 85 90 Pulse Rate [ From Monitor] Respiratory 16 17 19 Rate Blood Pressure 110/54 112/52 112/52 O2 Sat by Pulse Oximetry 08/15/19 08/15/19 08/15/19 01:45 02:00 02:15 Temperature Pulse Rate 80 80 79 Pulse Rate [ From Monitor] Respiratory 14 13 9 L Rate Blood Pressure 95/68 108/66 117/56 O2 Sat by Pulse 100 95 93 Oximetry 08/15/19 08/15/19 08/15/19 02:30 02:45 03:00 Temperature 93.3 F L Pulse Rate 77 80 83 Pulse Rate [ From Monitor] Respiratory 12 12 6 L Rate Blood Pressure 112/64 97/61 108/73 O2 Sat by Pulse 93 91 Oximetry 08/15/19 08/15/19 08/15/19 03:15 03:30 03:45 Temperature Pulse Rate 83 80 80 Pulse Rate [ From Monitor] Respiratory 7 L 8 L 7 L Rate Blood Pressure 101/61 103/59 103/57 O2 Sat by Pulse 87 92 Oximetry 08/15/19 08/15/19 08/15/19 04:00 04:15 04:30 Temperature Pulse Rate 81 80 79 Pulse Rate [ From Monitor] Respiratory 7 L 6 L 8 L Rate Blood Pressure 104/59 97/58 101/55 O2 Sat by Pulse 91 Oximetry 08/15/19 08/15/19 08/15/19 04:45 05:00 05:15 Temperature Pulse Rate 84 88 83 Pulse Rate [ From Monitor] Respiratory 7 L 6 L 7 L Rate Blood Pressure 94/55 90/60 97/54 O2 Sat by Pulse 89 87 88 Oximetry 08/15/19 08/15/19 08/15/19 05:30 05:45 06:00 Temperature Pulse Rate 90 88 84 Pulse Rate [ From Monitor] Respiratory 9 L 11 L 10 L Rate Blood Pressure 97/63 104/67 111/67 O2 Sat by Pulse 92 92 91 Oximetry 08/15/19 08/15/19 08/15/19 06:15 06:30 06:46 Temperature Pulse Rate 85 86 89 Pulse Rate [ From Monitor] Respiratory 10 L 10 L 10 L Rate Blood Pressure 106/58 110/57 110/57 O2 Sat by Pulse 90 92 89 Oximetry 08/15/19 08/15/19 08/15/19 07:00 07:25 07:30 Temperature Pulse Rate 86 95 H 87 Pulse Rate [ From Monitor] Respiratory 7 L 17 12 Rate Blood Pressure 92/54 100/64 O2 Sat by Pulse 96 96 Oximetry 08/15/19 08/15/19 08/15/19 07:45 08:00 08:15 Temperature 95.9 F L Pulse Rate 91 H 86 87 Pulse Rate [ 85 From Monitor] Respiratory 15 10 L 9 L Rate Blood Pressure 101/60 103/54 99/61 O2 Sat by Pulse 100 100 99 Oximetry 08/15/19 08/15/19 08/15/19 08:30 08:45 09:00 Temperature Pulse Rate 88 85 82 Pulse Rate [ From Monitor] Respiratory 10 L 7 L 7 L Rate Blood Pressure 102/56 92/57 96/57 O2 Sat by Pulse 100 99 99 Oximetry 08/15/19 08/15/19 08/15/19 09:15 09:30 09:32 Temperature Pulse Rate 84 99 H Pulse Rate [ From Monitor] Respiratory 7 L 19 Rate Blood Pressure 100/54 106/65 O2 Sat by Pulse 99 94 94 Oximetry 08/15/19 08/15/19 08/15/19 09:45 10:00 10:15 Temperature Pulse Rate 92 H 89 89 Pulse Rate [ 90 From Monitor] Respiratory 13 16 11 L Rate Blood Pressure 103/65 116/69 94/70 O2 Sat by Pulse 100 100 100 Oximetry 08/15/19 08/15/19 08/15/19 10:30 10:45 11:00 Temperature Pulse Rate 92 H 90 90 Pulse Rate [ From Monitor] Respiratory 9 L 11 L 10 L Rate Blood Pressure 101/66 104/70 100/72 O2 Sat by Pulse 99 99 Oximetry 08/15/19 08/15/19 08/15/19 11:15 11:30 11:45 Temperature Pulse Rate 91 H 91 H 94 H Pulse Rate [ From Monitor] Respiratory 10 L 12 13 Rate Blood Pressure 108/63 108/64 100/58 O2 Sat by Pulse 100 98 99 Oximetry 08/15/19 12:00 Temperature 97.0 F L Pulse Rate 89 Pulse Rate [ 93 H From Monitor] Respiratory 10 L Rate Blood Pressure 106/59 O2 Sat by Pulse 96 Oximetry General appearance: Present: no acute distress, disheveled - EENT Eyes: PERRL, EOM intact ENT: hearing intact - Neck Neck: supple - Respiratory Respiratory effort: normal Respiratory: bilateral: diminished - Labs CBC & Chem 7: 08/15/19 04:15 08/15/19 04:15 Labs: Abnormal lab results 08/11/19 08/14/19 08/14/19 Range/Units 20:15 12:38 20:30 WBC (4.5-11.0) K/mm3 RBC (3.65-5.03) M/mm3 Hgb (11.8-15.2) gm/dl Hct (35.5-45.6) % RDW (13.2-15.2) % Plt Count (140-440) K/mm3 Potassium (3.6-5.0) mmol/L Carbon Dioxide (22-30) mmol/L BUN (9-20) mg/dL Creatinine (0.8-1.5) mg/dL Glucose (75-100) mg/dL POC Glucose 138 H (70-105) Calcium (8.4-10.2) mg/dL Total Bilirubin (0.1-1.2) mg/dL Total Protein (6.3-8.2) g/dL Albumin (3.9-5) g/dL Crossmatch See Detail See Detail 08/14/19 08/15/19 08/15/19 Range/Units 23:34 04:15 04:15 WBC 13.0 H (4.5-11.0) K/mm3 RBC 3.09 L (3.65-5.03) M/mm3 Hgb 9.4 L (11.8-15.2) gm/dl Hct 28.6 L D (35.5-45.6) % RDW 23.8 H (13.2-15.2) % Plt Count 39 L (140-440) K/mm3 Potassium 3.2 L (3.6-5.0) mmol/L Carbon Dioxide 12 L (22-30) mmol/L BUN 69 H (9-20) mg/dL Creatinine 4.0 H (0.8-1.5) mg/dL Glucose 125 H (75-100) mg/dL POC Glucose 153 H (70-105) Calcium 6.8 L (8.4-10.2) mg/dL Total Bilirubin 3.50 H (0.1-1.2) mg/dL Total Protein 5.2 L (6.3-8.2) g/dL Albumin 2.5 L (3.9-5) g/dL Crossmatch 08/15/19 Range/Units 05:46 WBC (4.5-11.0) K/mm3 RBC (3.65-5.03) M/mm3 Hgb (11.8-15.2) gm/dl Hct (35.5-45.6) % RDW (13.2-15.2) % Plt Count (140-440) K/mm3 Potassium (3.6-5.0) mmol/L Carbon Dioxide (22-30) mmol/L BUN (9-20) mg/dL Creatinine (0.8-1.5) mg/dL Glucose (75-100) mg/dL POC Glucose 143 H (70-105) Calcium (8.4-10.2) mg/dL Total Bilirubin (0.1-1.2) mg/dL Total Protein (6.3-8.2) g/dL Albumin (3.9-5) g/dL Crossmatch Medications & Allergies - Medications Allergies/Adverse Reactions: Allergies Unable to Assess Allergy (Verified 07/04/19 05:14) ams Home Medications: Home Medications Medication Instructions Recorded Confirmed Last Taken Type Lactulose [Cephulac] 20 gm PO QDAY #30 oral.liqd 07/11/19 08/11/19 Unknown Rx Pantoprazole [Protonix TAB] 40 mg PO BID #60 tablet 07/11/19 08/11/19 Unknown Rx Rifaximin [Xifaxan] 550 mg PO BID tablet 07/11/19 08/11/19 Unknown Rx Sodium Bicarbonate 1,300 mg PO TID tablet 07/11/19 08/11/19 Unknown Rx oxyCODONE /ACETAMINOPHEN [Percocet 1 tab PO Q6H PRN #7 tablet 07/11/19 08/11/19 Unknown Rx 5/325 mg] Active Medications: Generic Name Dose Route Start Last Admin Trade Name Freq PRN Reason Stop Dose Admin Dextrose 0 ml 08/11/19 23:00 D50w (25gm) Syringe IV Q30MIN PRN Hypoglycemia Protocol Norepinephrine 4 mg in 250 mls @ 7.5 mls/hr 08/11/19 22:00 08/15/19 11:27 Levophed Drip 4 Mg/Ns 250 Ml IV 4 mcg/min TITR FORTINO 15 mls/hr Titration Protocol 2 MCG/MIN Dextrose/Sodium Chloride 1,000 mls @ 50 mls/hr 08/11/19 23:45 08/14/19 19:18 D5/0.45ns IV 50 mls/hr DIRECT FORTINO Administration Vasopressin 20 unit/ Sodium 101 mls @ 9.09 mls/hr 08/12/19 11:00 08/15/19 11:28 Chloride IV 0.03 units/min TITR FORTINO 9.09 mls/hr Titration Protocol 0.03 UNITS/MIN MEROPENEM/NS 1 GRAM/100 ML 1 gram in 100 mls @ 100 mls/hr 08/12/19 14:30 08/15/19 09:34 Merrem/Ns 1 Gram/100 Ml IV 100 mls/hr Q24HR FORTINO Administration Protocol Lansoprazole 30 mg 08/13/19 10:00 08/15/19 09:34 Prevacid Solutab FEEDTUBE 30 mg BID FORTINO Administration Ondansetron HCl 4 mg 08/11/19 23:13 Zofran IV Q8H PRN Nausea And Vomiting Potassium Chloride 40 meq 08/15/19 11:22 08/15/19 12:06 Potassium Chloride FEEDTUBE 08/15/19 16:00 40 meq ONCE FORTINO Administration Rifaximin 550 mg 08/13/19 10:00 08/15/19 09:34 Xifaxan PO 550 mg BID FORTINO Administration Sodium Bicarbonate 1,300 mg 08/13/19 14:00 08/15/19 10:15 Sodium Bicarbonate PO 1,300 mg TID FORTINO Administration Sodium Chloride 10 ml 08/12/19 10:00 08/15/19 10:16 Sodium Chloride Flush Syringe 10 Ml IV 10 ml BID FORTINO Administration Sodium Chloride 10 ml 08/11/19 23:13 08/13/19 21:54 Sodium Chloride Flush Syringe 10 Ml IV 10 ml PRN PRN Administration LINE FLUSH
--- NOTE | 2019-08-15 13:52 | Progress Note ---
Assessment and Plan Cultures: 08/11/2019 blood culture: no growth thus far 08/12/2019 urine culture: no growth A/P: 74-year-old male with extensive alcohol abuse, alcoholic cirrhosis, decubitus ulcers, recent hospitalization, now admitted with: #Shock, hypothermia, likely septic: etiology unclear. Possibly urine given si gnificant pyuria v/s SBP, he has ascites on US. Remains on pressors. #UTI: now has hewitt placed. Has history of VRE UTI, got linezolid in ER, hold off on additional linezolid in the setting of thrombocytopenia and negative urine culture. #Lactic acidosis #Acute renal failure: renally dose abx. #Thrombocytopenia #H/O alcohol abuse, hepatic encephalopathy #Multiple skin tears, malnutrition: recommend wound care. Recs: continue IV Meropenem renally adjusted, day 4 today given persistent pressor requirement, will add renally adjusted IV Daptomycin ?SBP, could consider diagnostic paracentesis with cell count and cultures, yield may be low given patient already on antibiotics Prognosis is extremely poor Sherry Knight MD, FACP [facility] ([facility]) C: [phone] O: [phone] F: [phone] Subjective Date of service: 08/15/19 Interval history: Afebrile. Remains encephalopathic. Still on 2 pressors, levophed slowly being weaned. On ventimask Objective - Exam Narrative Exam: Physical Exam: Constitutional: opens eyes, but encephalopathic Head, Ears, Nose: Normocephalic, atraumatic. External ears, nose normal Eyes: Conjunctivae/corneas clear. No icterus. No ptosis. Neck: Supple, no meningeal signs Cardiovascular: S1, S2 normal. Respiratory: Good air entry, clear to auscultation bilaterally GI: Soft, non-tender; bowel wall edema, bowel sounds normal. No peritoneal signs Musculoskeletal: anasarca + Skin: extensive skin tears, purpuric areas on skin Hem/Lymphatic: No palpable cervical or supraclavicular nodes. No lymphangitis Psych: confused, not agitated Neurological: drowsy and encephalopathic - Constitutional Vitals: Vital Signs Temp Pulse Resp BP Pulse Ox 97.0 F L 93 H 11 L 92/58 94 08/15/19 12:00 08/15/19 13:00 08/15/19 13:00 08/15/19 13:00 08/15/19 13:00 Temperature -Last 24 Hours Temperature 97.0 F Temperature 95.9 F Temperature 93.3 F Temperature 92.7 F Temperature 92.7 F Temperature 98.7 F Temperature 98.8 F Temperature 95.7 F - Labs CBC & Chem 7: 08/15/19 04:15 08/15/19 04:15 Labs: Abnormal lab results 08/11/19 08/14/19 08/14/19 Range/Units 20:15 12:38 20:30 WBC (4.5-11.0) K/mm3 RBC (3.65-5.03) M/mm3 Hgb (11.8-15.2) gm/dl Hct (35.5-45.6) % RDW (13.2-15.2) % Plt Count (140-440) K/mm3 Potassium (3.6-5.0) mmol/L Carbon Dioxide (22-30) mmol/L BUN (9-20) mg/dL Creatinine (0.8-1.5) mg/dL Glucose (75-100) mg/dL POC Glucose 138 H (70-105) Calcium (8.4-10.2) mg/dL Total Bilirubin (0.1-1.2) mg/dL Total Protein (6.3-8.2) g/dL Albumin (3.9-5) g/dL Crossmatch See Detail See Detail 08/14/19 08/15/19 08/15/19 Range/Units 23:34 04:15 04:15 WBC 13.0 H (4.5-11.0) K/mm3 RBC 3.09 L (3.65-5.03) M/mm3 Hgb 9.4 L (11.8-15.2) gm/dl Hct 28.6 L D (35.5-45.6) % RDW 23.8 H (13.2-15.2) % Plt Count 39 L (140-440) K/mm3 Potassium 3.2 L (3.6-5.0) mmol/L Carbon Dioxide 12 L (22-30) mmol/L BUN 69 H (9-20) mg/dL Creatinine 4.0 H (0.8-1.5) mg/dL Glucose 125 H (75-100) mg/dL POC Glucose 153 H (70-105) Calcium 6.8 L (8.4-10.2) mg/dL Total Bilirubin 3.50 H (0.1-1.2) mg/dL Total Protein 5.2 L (6.3-8.2) g/dL Albumin 2.5 L (3.9-5) g/dL Crossmatch 08/15/19 Range/Units 05:46 WBC (4.5-11.0) K/mm3 RBC (3.65-5.03) M/mm3 Hgb (11.8-15.2) gm/dl Hct (35.5-45.6) % RDW (13.2-15.2) % Plt Count (140-440) K/mm3 Potassium (3.6-5.0) mmol/L Carbon Dioxide (22-30) mmol/L BUN (9-20) mg/dL Creatinine (0.8-1.5) mg/dL Glucose (75-100) mg/dL POC Glucose 143 H (70-105) Calcium (8.4-10.2) mg/dL Total Bilirubin (0.1-1.2) mg/dL Total Protein (6.3-8.2) g/dL Albumin (3.9-5) g/dL Crossmatch
[2019-08-15] MEDS ORDERED: SIMPLE SYRUP 15 ML FEEDTUBE PRN ×2 (14:03)
[2019-08-15] MEDS ORDERED: SODIUM BICARBONATE 325 MG TAB FEEDTUBE PRN (14:03)
[2019-08-15] MEDS ORDERED: LIPASE 10,500/PROTEASE 25,000/AMYLASE 43,750 (UNITS) DR CAP FEEDTUBE PRN (14:03)
[2019-08-15] MEDS: D5W/0.45% NACL 1,000 ML IV SCH (15:30)
--- NOTE | 2019-08-15 16:56 | Progress Note ---
Assessment and Plan Impression: * Oliguric HERRERA secondary to prerenal azotemia due to volume depletion vs ATN --SCr 1.4mg/dL at d/c on Jul 11, 2019 * Sepsis --Blood cx: NGTD * Encephalopathy * Metabolic acidosis secondary to lactic acidosis * Coagulopathy - INR 2.0 at admission * Thrombocytopenia * Liver cirrhosis * Atrial fibrillation/flutter * Anemia * Hx of alcohol abuse Plan: * Renal prognosis is guarded - UOP declining * Maintain hewitt catheter placement for strict I/O - UOP noted * Resume Albumin q6h x 4 - last dose this AM; change IVF to bicarb * Continue po bicarb * Abx per ID * Pressors prn to maintain MAP>65 - Levophed being down titrated * Dose medications for renal function * Avoid potential nephrotoxins * Strict I/O Subjective Date of service: 08/15/19 Interval history: No acute events overnight. Objective - Vital Signs Vital signs: Vital Signs - 12hr 08/15/19 08/15/19 08/15/19 05:00 05:15 05:30 Temperature Pulse Rate 88 83 90 Pulse Rate [ From Monitor] Respiratory 6 L 7 L 9 L Rate Blood Pressure 90/60 97/54 97/63 O2 Sat by Pulse 87 88 92 Oximetry 08/15/19 08/15/19 08/15/19 05:45 06:00 06:15 Temperature Pulse Rate 88 84 85 Pulse Rate [ From Monitor] Respiratory 11 L 10 L 10 L Rate Blood Pressure 104/67 111/67 106/58 O2 Sat by Pulse 92 91 90 Oximetry 08/15/19 08/15/19 08/15/19 06:30 06:46 07:00 Temperature Pulse Rate 86 89 86 Pulse Rate [ From Monitor] Respiratory 10 L 10 L 7 L Rate Blood Pressure 110/57 110/57 92/54 O2 Sat by Pulse 92 89 96 Oximetry 08/15/19 08/15/19 08/15/19 07:25 07:30 07:45 Temperature Pulse Rate 95 H 87 91 H Pulse Rate [ From Monitor] Respiratory 17 12 15 Rate Blood Pressure 100/64 101/60 O2 Sat by Pulse 96 100 Oximetry 08/15/19 08/15/19 08/15/19 08:00 08:15 08:30 Temperature 95.9 F L Pulse Rate 86 87 88 Pulse Rate [ 85 From Monitor] Respiratory 10 L 9 L 10 L Rate Blood Pressure 103/54 99/61 102/56 O2 Sat by Pulse 100 99 100 Oximetry 08/15/19 08/15/19 08/15/19 08:45 09:00 09:15 Temperature Pulse Rate 85 82 84 Pulse Rate [ From Monitor] Respiratory 7 L 7 L 7 L Rate Blood Pressure 92/57 96/57 100/54 O2 Sat by Pulse 99 99 99 Oximetry 08/15/19 08/15/19 08/15/19 09:30 09:32 09:45 Temperature Pulse Rate 99 H 92 H Pulse Rate [ From Monitor] Respiratory 19 13 Rate Blood Pressure 106/65 103/65 O2 Sat by Pulse 94 94 100 Oximetry 08/15/19 08/15/19 08/15/19 10:00 10:15 10:30 Temperature Pulse Rate 89 89 92 H Pulse Rate [ 90 From Monitor] Respiratory 16 11 L 9 L Rate Blood Pressure 116/69 94/70 101/66 O2 Sat by Pulse 100 100 Oximetry 08/15/19 08/15/19 08/15/19 10:45 11:00 11:15 Temperature Pulse Rate 90 90 91 H Pulse Rate [ From Monitor] Respiratory 11 L 10 L 10 L Rate Blood Pressure 104/70 100/72 108/63 O2 Sat by Pulse 99 99 100 Oximetry 08/15/19 08/15/19 08/15/19 11:30 11:45 12:00 Temperature 97.0 F L Pulse Rate 91 H 94 H 91 H Pulse Rate [ 93 H From Monitor] Respiratory 12 13 10 L Rate Blood Pressure 108/64 100/58 106/59 O2 Sat by Pulse 98 99 96 Oximetry 08/15/19 08/15/19 08/15/19 12:15 12:30 12:45 Temperature Pulse Rate 93 H 95 H 93 H Pulse Rate [ From Monitor] Respiratory 12 17 12 Rate Blood Pressure 107/60 109/63 98/67 O2 Sat by Pulse 100 100 97 Oximetry 08/15/19 08/15/19 08/15/19 13:00 13:15 13:30 Temperature Pulse Rate 93 H 90 86 Pulse Rate [ From Monitor] Respiratory 11 L 10 L 14 Rate Blood Pressure 92/58 97/55 93/62 O2 Sat by Pulse 94 96 100 Oximetry 08/15/19 08/15/19 08/15/19 13:45 14:00 14:15 Temperature Pulse Rate 87 84 82 Pulse Rate [ 86 From Monitor] Respiratory 10 L 8 L 12 Rate Blood Pressure 93/52 98/55 110/46 O2 Sat by Pulse 100 100 97 Oximetry 08/15/19 08/15/19 08/15/19 14:30 14:45 15:00 Temperature Pulse Rate 81 90 85 Pulse Rate [ From Monitor] Respiratory 9 L 9 L 8 L Rate Blood Pressure 87/53 87/56 92/58 O2 Sat by Pulse 100 99 98 Oximetry 08/15/19 08/15/19 08/15/19 15:15 15:30 15:45 Temperature Pulse Rate 84 87 88 Pulse Rate [ From Monitor] Respiratory 10 L 9 L 11 L Rate Blood Pressure 83/54 95/56 97/64 O2 Sat by Pulse 99 99 100 Oximetry 08/15/19 08/15/19 08/15/19 16:00 16:15 16:30 Temperature 97.6 F Pulse Rate 92 H 86 92 H Pulse Rate [ 87 From Monitor] Respiratory 11 L 7 L 10 L Rate Blood Pressure 101/60 103/64 99/62 O2 Sat by Pulse 100 100 100 Oximetry - General Appearance General appearance: chronically ill EENT: ATNC Respiratory: Present: Decreased Breath Sounds Cardiology: regular, S1S2 Gastrointestinal: no tenderness, no distended Musculoskeletal: other - Lab 08/15/19 04:15 08/15/19 04:15 Most recent lab results Calcium 6.8 mg/dL (8.4-10.2) L 08/15/19 04:15 Medications & Allergies - Medications Allergies/Adverse Reactions: Allergies Unable to Assess Allergy (Verified 07/04/19 05:14) ams Home Medications: Home Medications Medication Instructions Recorded Confirmed Last Taken Type Lactulose [Cephulac] 20 gm PO QDAY #30 oral.liqd 07/11/19 08/11/19 Unknown Rx Pantoprazole [Protonix TAB] 40 mg PO BID #60 tablet 07/11/19 08/11/19 Unknown Rx Rifaximin [Xifaxan] 550 mg PO BID tablet 07/11/19 08/11/19 Unknown Rx Sodium Bicarbonate 1,300 mg PO TID tablet 07/11/19 08/11/19 Unknown Rx oxyCODONE /ACETAMINOPHEN [Percocet 1 tab PO Q6H PRN #7 tablet 07/11/19 08/11/19 Unknown Rx 5/325 mg] Active Medications: Generic Name Dose Route Start Last Admin Trade Name Freq PRN Reason Stop Dose Admin Lipase/Protease/Amylase 1 each 08/15/19 14:03 Pancreaze 10,500 Unit FEEDTUBE PRN PRN For Clogged Feeding Tube Dextrose 0 ml 08/11/19 23:00 D50w (25gm) Syringe IV Q30MIN PRN Hypoglycemia Protocol Norepinephrine 4 mg in 250 mls @ 7.5 mls/hr 08/11/19 22:00 08/15/19 16:15 Levophed Drip 4 Mg/Ns 250 Ml IV 4 mcg/min TITR FORTINO 15 mls/hr Titration Protocol 2 MCG/MIN Dextrose/Sodium Chloride 1,000 mls @ 50 mls/hr 08/11/19 23:45 08/15/19 15:30 D5/0.45ns IV 50 mls/hr DIRECT FORTINO Administration Vasopressin 20 unit/ Sodium 101 mls @ 9.09 mls/hr 08/12/19 11:00 08/15/19 15:30 Chloride IV 0.03 units/min TITR FORTINO 9.09 mls/hr Administration Protocol 0.03 UNITS/MIN MEROPENEM/NS 1 GRAM/100 ML 1 gram in 100 mls @ 100 mls/hr 08/12/19 14:30 08/15/19 09:34 Merrem/Ns 1 Gram/100 Ml IV 100 mls/hr Q24HR FORTINO Administration Protocol Daptomycin 500 mg/ Sodium 100 mls @ 200 mls/hr 08/15/19 15:00 Chloride IV Q48H FORTINO Protocol Lansoprazole 30 mg 08/13/19 10:00 08/15/19 09:34 Prevacid Solutab FEEDTUBE 30 mg BID FORTINO Administration Ondansetron HCl 4 mg 08/11/19 23:13 Zofran IV Q8H PRN Nausea And Vomiting Rifaximin 550 mg 08/13/19 10:00 08/15/19 09:34 Xifaxan PO 550 mg BID FORTINO Administration Simple Syrup 15 ml 08/15/19 14:03 Simple Syrup FEEDTUBE PRN PRN Hypoglycemia Simple Syrup 30 ml 08/15/19 14:03 Simple Syrup FEEDTUBE PRN PRN Hypoglycemia Sodium Bicarbonate 1,300 mg 08/13/19 14:00 08/15/19 13:38 Sodium Bicarbonate PO 1,300 mg TID FORTINO Administration Sodium Bicarbonate 325 mg 08/15/19 14:03 Sodium Bicarbonate FEEDTUBE PRN PRN For Clogged Feeding Tube Sodium Chloride 10 ml 08/12/19 10:00 08/15/19 10:16 Sodium Chloride Flush Syringe 10 Ml IV 10 ml BID FORTINO Administration Sodium Chloride 10 ml 08/11/19 23:13 08/13/19 21:54 Sodium Chloride Flush Syringe 10 Ml IV 10 ml PRN PRN Administration LINE FLUSH
[2019-08-15] MEDS: ALBUMIN HUMAN 25% (25 GM/100 ML) INJ IV SCH ×2 (17:10→23:26)
[2019-08-15] MEDS: SODIUM BICARBONATE 150 MEQ in DEXTROSE 5% IN WATER 1,000 ML IV SCH (18:10)
[2019-08-16] MEDS: VASOPRESSIN 20 UNIT in SODIUM CHLORIDE 0.9% 100 ML IV SCH (02:58)
[2019-08-16] MEDS: ALBUMIN HUMAN 25% (25 GM/100 ML) INJ IV SCH ×4 (05:14→19:00)
[2019-08-16 06:56] LABS: Hematocrit 26.5 % (35.5-45.6); Hemoglobin 8.9 gm/dl (11.8-15.2); Mean Corpuscular HGB Conc 34 % (32-34); Mean Corpuscular Volume 90 fl (84-94); Red Blood Count 2.94 M/mm3 (3.65-5.03)
[2019-08-16 07:18] LABS: Albumin 3.1 g/dL (3.9-5); Calcium 7.2 mg/dL (8.4-10.2)
[2019-08-16 07:24] LABS: Platelet Count 32 K/mm3 (140-440); Red Cell Distribution Width 23.4 % (13.2-15.2)
[2019-08-16] MEDS ORDERED: POTASSIUM CHLORIDE 20 MEQ PACKET FEEDTUBE ONE (07:46)
[2019-08-16] MEDS: SODIUM BICARBONATE 650 MG TAB PO SCH ×3 (08:38→20:00)
[2019-08-16] MEDS: MEROPENEM/NS 1 GRAM/100 ML 1 GRAM/100 ML BAG IV SCH (09:40)
[2019-08-16] MEDS: RIFAXIMIN 550 MG TAB PO SCH ×2 (09:41→21:50)
[2019-08-16] MEDS: NORepinephrine/NS 4 MG-250 ML 4 MG/250 ML BAG IV SCH (09:42)
[2019-08-16] MEDS: LANSOPRAZOLE 30 MG SOLUTAB FEEDTUBE SCH ×2 (09:43→21:50)
--- NOTE | 2019-08-16 12:49 | Progress Note ---
Assessment and Plan Impression: * Oliguric HERRERA secondary to prerenal azotemia due to volume depletion vs ATN --SCr 1.4mg/dL at d/c on Jul 11, 2019 * Sepsis --Blood cx: NGTD * Encephalopathy * Metabolic acidosis secondary to lactic acidosis * Coagulopathy - INR 2.0 at admission * Thrombocytopenia * Liver cirrhosis * Atrial fibrillation/flutter * Anemia * Hx of alcohol abuse Plan: * Renal prognosis is guarded - SCr plateaued, UOP trending up * Maintain hewitt catheter placement for strict I/O * Continue Albumin q6h x 4 * Continue bicarb gtt for gentle hydration * Continue po bicarb * Replete lytes prn - he is s/p KCL 40meq x 1 dose this AM * Abx per ID * Pressors prn to maintain MAP>65 * Dose medications for renal function * Avoid potential nephrotoxins * Strict I/O Subjective Date of service: 08/16/19 Interval history: No acute events Objective - Vital Signs Vital signs: Vital Signs - 12hr 08/16/19 08/16/19 08/16/19 01:00 01:15 01:30 Temperature Pulse Rate 90 90 83 Pulse Rate [ From Monitor] Respiratory 8 L 7 L 7 L Rate Blood Pressure 103/63 104/67 101/62 O2 Sat by Pulse 97 98 97 Oximetry 08/16/19 08/16/19 08/16/19 01:45 02:00 02:15 Temperature 97.5 F L Pulse Rate 91 H 92 H 90 Pulse Rate [ From Monitor] Respiratory 8 L 11 L 11 L Rate Blood Pressure 100/71 107/63 111/55 O2 Sat by Pulse 97 97 96 Oximetry 08/16/19 08/16/19 08/16/19 02:31 02:45 03:00 Temperature Pulse Rate 89 95 H 93 H Pulse Rate [ From Monitor] Respiratory 8 L 11 L 12 Rate Blood Pressure 103/56 103/49 99/48 O2 Sat by Pulse 96 98 100 Oximetry 08/16/19 08/16/19 08/16/19 03:15 03:30 03:32 Temperature 97.7 F Pulse Rate 93 H 89 Pulse Rate [ From Monitor] Respiratory 10 L 11 L Rate Blood Pressure 94/56 100/56 O2 Sat by Pulse 99 99 Oximetry 08/16/19 08/16/19 08/16/19 03:45 04:00 04:15 Temperature Pulse Rate 89 90 89 Pulse Rate [ 88 From Monitor] Respiratory 11 L 10 L 7 L Rate Blood Pressure 96/67 98/59 109/67 O2 Sat by Pulse 98 98 98 Oximetry 08/16/19 08/16/19 08/16/19 04:30 04:45 05:00 Temperature Pulse Rate 86 98 H 92 H Pulse Rate [ From Monitor] Respiratory 9 L 12 11 L Rate Blood Pressure 108/64 117/69 117/66 O2 Sat by Pulse 98 99 98 Oximetry 08/16/19 08/16/19 08/16/19 05:15 05:30 05:45 Temperature Pulse Rate 93 H 101 H 84 Pulse Rate [ From Monitor] Respiratory 12 20 11 L Rate Blood Pressure 112/76 112/76 105/56 O2 Sat by Pulse 98 95 98 Oximetry 08/16/19 08/16/19 08/16/19 06:00 06:15 06:30 Temperature Pulse Rate 88 90 88 Pulse Rate [ From Monitor] Respiratory 13 9 L 10 L Rate Blood Pressure 109/66 106/68 99/66 O2 Sat by Pulse 97 98 97 Oximetry 08/16/19 08/16/19 08/16/19 06:45 07:00 07:15 Temperature Pulse Rate 88 91 H 89 Pulse Rate [ From Monitor] Respiratory 8 L 8 L 7 L Rate Blood Pressure 92/66 100/65 98/60 O2 Sat by Pulse 95 95 94 Oximetry 08/16/19 08/16/19 08/16/19 07:30 07:45 08:00 Temperature 98.1 F Pulse Rate 89 91 H 91 H Pulse Rate [ 87 From Monitor] Respiratory 8 L 8 L 9 L Rate Blood Pressure 100/62 109/67 110/66 O2 Sat by Pulse 93 93 95 Oximetry 08/16/19 08/16/19 08/16/19 08:15 08:31 08:45 Temperature Pulse Rate 95 H 90 92 H Pulse Rate [ From Monitor] Respiratory 9 L 10 L 13 Rate Blood Pressure 108/65 93/55 94/64 O2 Sat by Pulse 93 94 94 Oximetry 08/16/19 08/16/19 08/16/19 08:52 09:00 09:15 Temperature Pulse Rate 90 89 Pulse Rate [ From Monitor] Respiratory 11 L 10 L Rate Blood Pressure 95/39 95/39 O2 Sat by Pulse 93 93 94 Oximetry 12/03/2808/16/19 08/16/19 09:30 09:45 10:00 Temperature Pulse Rate 90 88 88 Pulse Rate [ From Monitor] Respiratory 8 L 9 L 10 L Rate Blood Pressure 107/63 97/59 96/64 O2 Sat by Pulse 94 94 96 Oximetry 08/16/19 08/16/19 08/16/19 10:15 10:30 10:45 Temperature Pulse Rate 86 94 H 87 Pulse Rate [ From Monitor] Respiratory 9 L 9 L 9 L Rate Blood Pressure 110/65 94/49 104/69 O2 Sat by Pulse 97 98 98 Oximetry 08/16/19 08/16/19 08/16/19 11:00 11:15 11:30 Temperature Pulse Rate 87 92 H 89 Pulse Rate [ From Monitor] Respiratory 9 L 8 L 11 L Rate Blood Pressure 105/63 111/67 97/61 O2 Sat by Pulse 100 99 100 Oximetry - General Appearance General appearance: chronically ill EENT: ATNC Respiratory: Present: Decreased Breath Sounds Cardiology: tachycardia, S1S2 Gastrointestinal: normal, no tenderness, distended Neurologic: other (more alert, responsive) Musculoskeletal: other (+edema) Psychiatric: cooperative - Lab 08/16/19 05:10 08/16/19 05:10 Most recent lab results Calcium 7.2 mg/dL (8.4-10.2) L 08/16/19 05:10 Medications & Allergies - Medications Allergies/Adverse Reactions: Allergies Unable to Assess Allergy (Verified 07/04/19 05:14) ams Home Medications: Home Medications Medication Instructions Recorded Confirmed Last Taken Type Lactulose [Cephulac] 20 gm PO QDAY #30 oral.liqd 07/11/19 08/11/19 Unknown Rx Pantoprazole [Protonix TAB] 40 mg PO BID #60 tablet 07/11/19 08/11/19 Unknown Rx Rifaximin [Xifaxan] 550 mg PO BID tablet 07/11/19 08/11/19 Unknown Rx Sodium Bicarbonate 1,300 mg PO TID tablet 07/11/19 08/11/19 Unknown Rx oxyCODONE /ACETAMINOPHEN [Percocet 1 tab PO Q6H PRN #7 tablet 07/11/19 08/11/19 Unknown Rx 5/325 mg] Active Medications: Generic Name Dose Route Start Last Admin Trade Name Freq PRN Reason Stop Dose Admin Lipase/Protease/Amylase 1 each 08/15/19 14:[address] 10,500 Unit FEEDTUBE PRN PRN For Clogged Feeding Tube Dextrose 0 ml 08/11/19 23:00 08/15/19 18:37 D50w (25gm) Syringe IV 50 ml Q30MIN PRN Administration Hypoglycemia Protocol Norepinephrine 4 mg in 250 mls @ 7.5 mls/hr 08/11/19 22:00 08/16/19 09:42 Levophed Drip 4 Mg/Ns 250 Ml IV 4 mcg/min TITR FORTINO 15 mls/hr Administration Protocol 2 MCG/MIN Vasopressin 20 unit/ Sodium 101 mls @ 9.09 mls/hr 08/12/19 11:00 08/16/19 11:16 Chloride IV 0 units/min TITR FORTINO 0 mls/hr Titration Protocol 0.03 UNITS/MIN MEROPENEM/NS 1 GRAM/100 ML 1 gram in 100 mls @ 100 mls/hr 08/12/19 14:30 08/16/19 09:40 Merrem/Ns 1 Gram/100 Ml IV 100 mls/hr Q24HR FORTINO Administration Protocol Daptomycin 500 mg/ Sodium 100 mls @ 200 mls/hr 08/15/19 15:00 08/15/19 16:57 Chloride IV 200 mls/hr Q48H FORTINO Administration Protocol Sodium Bicarbonate 150 meq/ 1,150 mls @ 50 mls/hr 08/15/19 17:00 08/15/19 18:10 Dextrose IV 50 mls/hr DIRECT FORTINO Administration Lansoprazole 30 mg 08/13/19 10:00 08/16/19 09:43 Prevacid Solutab FEEDTUBE 30 mg BID FORTINO Administration Ondansetron HCl 4 mg 08/11/19 23:13 Zofran IV Q8H PRN Nausea And Vomiting Rifaximin 550 mg 08/13/19 10:00 08/16/19 09:41 Xifaxan PO 550 mg BID FORTINO Administration Simple Syrup 15 ml 08/15/19 14:03 Simple Syrup FEEDTUBE PRN PRN Hypoglycemia Simple Syrup 30 ml 08/15/19 14:03 Simple Syrup FEEDTUBE PRN PRN Hypoglycemia Sodium Bicarbonate 1,300 mg 08/13/19 14:00 08/16/19 08:38 Sodium Bicarbonate PO 1,300 mg TID FORTINO Administration Sodium Bicarbonate 325 mg 12/06/19 14:03 Sodium Bicarbonate FEEDTUBE PRN PRN For Clogged Feeding Tube Sodium Chloride 10 ml 08/12/19 10:00 08/16/19 09:43 Sodium Chloride Flush Syringe 10 Ml IV 10 ml BID FORTINO Administration Sodium Chloride 10 ml 08/11/19 23:13 08/13/19 21:54 Sodium Chloride Flush Syringe 10 Ml IV 10 ml PRN PRN Administration LINE FLUSH
[2019-08-16] MEDS: SODIUM BICARBONATE 150 MEQ in DEXTROSE 5% IN WATER 1,000 ML IV SCH (14:14)
--- NOTE | 2019-08-16 14:30 | Progress Note ---
Assessment and Plan 74 y/o male admitted with altered mental state, hypotension, hypothermia and hypoglycemia. 1. Neuro: Still not able to give lactulose yet. Improving. More awake and alert today. 2. Stable on Venti mask at 35%. Not able to wean off as he is a mouth breather. 3. Still hypotensive. Will start patient on midodrine. 10 TID 4. Strict I/O's 5. Feed if able to get off levophed 6. Renal function stable. Follow up any new renal recs. 7. Hold on paracentesis CCT 31 minutes. Subjective Date of service: 08/16/19 Interval history: Awake, but still on pressors. Levo at 4 and Vaso at max dosing. Cr stable. UOP slightly increased. Objective - Constitutional Vitals: Vital Signs - 12hr 08/16/19 08/16/19 08/16/19 02:31 02:45 03:00 Temperature Pulse Rate 89 95 H 93 H Pulse Rate [ From Monitor] Respiratory 8 L 11 L 12 Rate Blood Pressure 103/56 103/49 99/48 O2 Sat by Pulse 96 98 100 Oximetry 08/16/19 08/16/19 08/16/19 03:15 03:30 03:32 Temperature 97.7 F Pulse Rate 93 H 89 Pulse Rate [ From Monitor] Respiratory 10 L 11 L Rate Blood Pressure 94/56 100/56 O2 Sat by Pulse 99 99 Oximetry 08/16/19 08/16/19 08/16/19 03:45 04:00 04:15 Temperature Pulse Rate 89 90 89 Pulse Rate [ 88 From Monitor] Respiratory 11 L 10 L 7 L Rate Blood Pressure 96/67 98/59 109/67 O2 Sat by Pulse 98 98 98 Oximetry 08/16/19 08/16/19 08/16/19 04:30 04:45 05:00 Temperature Pulse Rate 86 98 H 92 H Pulse Rate [ From Monitor] Respiratory 9 L 12 11 L Rate Blood Pressure 108/64 117/69 117/66 O2 Sat by Pulse 98 99 98 Oximetry 08/16/19 08/16/19 08/16/19 05:15 05:30 05:45 Temperature Pulse Rate 93 H 101 H 84 Pulse Rate [ From Monitor] Respiratory 12 20 11 L Rate Blood Pressure 112/76 112/76 105/56 O2 Sat by Pulse 98 95 98 Oximetry 08/16/19 08/16/1919 06:00 06:15 06:30 Temperature Pulse Rate 88 90 88 Pulse Rate [ From Monitor] Respiratory 13 9 L 10 L Rate Blood Pressure 109/66 106/68 99/66 O2 Sat by Pulse 97 98 97 Oximetry 08/16/19 08/16/19 08/16/19 06:45 07:00 07:15 Temperature Pulse Rate 88 91 H 89 Pulse Rate [ From Monitor] Respiratory 8 L 8 L 7 L Rate Blood Pressure 92/66 100/65 98/60 O2 Sat by Pulse 95 95 94 Oximetry 08/16/19 08/16/19 08/16/19 07:30 07:45 08:00 Temperature 98.1 F Pulse Rate 89 91 H 91 H Pulse Rate [ 87 From Monitor] Respiratory 8 L 8 L 9 L Rate Blood Pressure 100/62 109/67 110/66 O2 Sat by Pulse 93 93 95 Oximetry 08/16/19 08/16/19 08/16/19 08:15 08:31 08:45 Temperature Pulse Rate 95 H 90 92 H Pulse Rate [ From Monitor] Respiratory 9 L 10 L 13 Rate Blood Pressure 108/65 93/55 94/64 O2 Sat by Pulse 93 94 94 Oximetry 08/16/19 08/16/19 08/16/19 08:52 09:00 09:15 Temperature Pulse Rate 90 89 Pulse Rate [ From Monitor] Respiratory 11 L 10 L Rate Blood Pressure 95/39 95/39 O2 Sat by Pulse 93 93 94 Oximetry 08/16/19 08/16/19 08/16/19 09:30 09:45 10:00 Temperature Pulse Rate 90 88 88 Pulse Rate [ From Monitor] Respiratory 8 L 9 L 10 L Rate Blood Pressure 107/63 97/59 96/64 O2 Sat by Pulse 94 94 96 Oximetry 08/16/19 08/16/19 08/16/19 10:15 10:30 10:45 Temperature Pulse Rate 86 94 H 87 Pulse Rate [ From Monitor] Respiratory 9 L 9 L 9 L Rate Blood Pressure 110/65 94/49 104/69 O2 Sat by Pulse 97 98 98 Oximetry 08/16/19 08/16/19 08/16/19 11:00 11:15 11:30 Temperature Pulse Rate 87 92 H 89 Pulse Rate [ From Monitor] Respiratory 9 L 8 L 11 L Rate Blood Pressure 105/63 111/67 97/61 O2 Sat by Pulse 100 99 100 Oximetry 08/16/19 08/16/19 11:45 12:00 Temperature 97.3 F L Pulse Rate 92 H 97 H Pulse Rate [ 91 H From Monitor] Respiratory 9 L 11 L Rate Blood Pressure 92/60 95/56 O2 Sat by Pulse 100 100 Oximetry - Labs CBC & Chem 7: 08/16/19 05:10 08/16/19 05:10 Labs: Abnormal lab results 08/15/19 08/15/19 08/16/19 Range/Units 11:56 18:59 05:10 RBC 2.94 L (3.65-5.03) M/mm3 Hgb 8.9 L (11.8-15.2) gm/dl Hct 26.5 L (35.5-45.6) % RDW 23.4 H (13.2-15.2) % Plt Count 32 L (140-440) K/mm3 Potassium (3.6-5.0) mmol/L Carbon Dioxide (22-30) mmol/L BUN (9-20) mg/dL Creatinine (0.8-1.5) mg/dL Glucose (75-100) mg/dL POC Glucose 137 H 226 H (70-105) Calcium (8.4-10.2) mg/dL Total Bilirubin (0.1-1.2) mg/dL Total Protein (6.3-8.2) g/dL Albumin (3.9-5) g/dL 08/16/19 08/16/19 Range/Units 05:10 12:38 RBC (3.65-5.03) M/mm3 Hgb (11.8-15.2) gm/dl Hct (35.5-45.6) % RDW (13.2-15.2) % Plt Count (140-440) K/mm3 Potassium 3.4 L (3.6-5.0) mmol/L Carbon Dioxide 13 L (22-30) mmol/L BUN 69 H (9-20) mg/dL Creatinine 3.9 H (0.8-1.5) mg/dL Glucose 105 H (75-100) mg/dL POC Glucose 113 H (70-105) Calcium 7.2 L (8.4-10.2) mg/dL Total Bilirubin 3.40 H (0.1-1.2) mg/dL Total Protein 5.5 L (6.3-8.2) g/dL Albumin 3.1 L (3.9-5) g/dL Medications & Allergies - Medications Allergies/Adverse Reactions: Allergies Unable to Assess Allergy (Verified 07/04/19 05:14) ams Home Medications: Home Medications Medication Instructions Recorded Confirmed Last Taken Type Lactulose [Cephulac] 20 gm PO QDAY #30 oral.liqd 07/11/19 08/11/19 Unknown Rx Pantoprazole [Protonix TAB] 40 mg PO BID #60 tablet 07/11/19 08/11/19 Unknown Rx Rifaximin [Xifaxan] 550 mg PO BID tablet 07/11/19 08/11/19 Unknown Rx Sodium Bicarbonate 1,300 mg PO TID tablet 07/11/19 08/11/19 Unknown Rx oxyCODONE /ACETAMINOPHEN [Percocet 1 tab PO Q6H PRN #7 tablet 07/11/19 08/11/19 Unknown Rx 5/325 mg] Active Medications: Generic Name Dose Route Start Last Admin Trade Name Freq PRN Reason Stop Dose Admin Albumin Human 25 gm 08/16/19 13:00 08/16/19 13:50 Alburx 25% (Albumin) IV 08/17/19 07:01 25 gm Q6H FORTINO Administration Lipase/Protease/Amylase 1 each 08/15/19 14:[address] 10,500 Unit FEEDTUBE PRN PRN For Clogged Feeding Tube Dextrose 0 ml 08/11/19 23:00 08/15/19 18:37 D50w (25gm) Syringe IV 50 ml Q30MIN PRN Administration Hypoglycemia Protocol Norepinephrine 4 mg in 250 mls @ 7.5 mls/hr 08/11/19 22:00 08/16/19 09:42 Levophed Drip 4 Mg/Ns 250 Ml IV 4 mcg/min TITR FORTINO 15 mls/hr Administration Protocol 2 MCG/MIN Vasopressin 20 unit/ Sodium 101 mls @ 9.09 mls/hr 08/12/19 11:00 08/16/19 11:16 Chloride IV 0 units/min TITR FORTINO 0 mls/hr Titration Protocol 0.03 UNITS/MIN MEROPENEM/NS 1 GRAM/100 ML 1 gram in 100 mls @ 100 mls/hr 08/12/19 14:30 08/16/19 09:40 Merrem/Ns 1 Gram/100 Ml IV 100 mls/hr Q24HR FORTINO Administration Protocol Daptomycin 500 mg/ Sodium 100 mls @ 200 mls/hr 08/15/19 15:00 08/15/19 16:57 Chloride IV 200 mls/hr Q48H FORTINO Administration Protocol Sodium Bicarbonate 150 meq/ 1,150 mls @ 50 mls/hr 08/15/19 17:00 08/16/19 14:14 Dextrose IV 50 mls/hr DIRECT FORTINO Administration Lansoprazole 30 mg 08/13/19 10:00 08/16/19 09:43 Prevacid Solutab FEEDTUBE 30 mg BID FORTINO Administration Ondansetron HCl 4 mg 08/11/19 23:13 Zofran IV Q8H PRN Nausea And Vomiting Rifaximin 550 mg 08/13/19 10:00 08/16/19 09:41 Xifaxan PO 550 mg BID FORTINO Administration Simple Syrup 15 ml 08/15/19 14:03 Simple Syrup FEEDTUBE PRN PRN Hypoglycemia Simple Syrup 30 ml 08/15/19 14:03 Simple Syrup FEEDTUBE PRN PRN Hypoglycemia Sodium Bicarbonate 1,300 mg 08/13/19 14:00 08/16/19 14:07 Sodium Bicarbonate PO 1,300 mg TID FORTINO Administration Sodium Bicarbonate 325 mg 08/15/19 14:03 Sodium Bicarbonate FEEDTUBE PRN PRN For Clogged Feeding Tube Sodium Chloride 10 ml 08/12/19 10:00 08/16/19 09:43 Sodium Chloride Flush Syringe 10 Ml IV 10 ml BID FORTINO Administration Sodium Chloride 10 ml 08/11/19 23:13 08/13/19 21:54 Sodium Chloride Flush Syringe 10 Ml IV 10 ml PRN PRN Administration LINE FLUSH
--- NOTE | 2019-08-16 17:51 | Progress Note ---
Assessment and Plan Assessment and plan: --Septic Shock : on levophed, off vasopressin Titrate systolic blood pressure to more than 100 --Sepsis; secondary to UTI; Urine cultures negative to date, patient has history of VRE Contact isolation, ID following --Anemia; hemoglobin 6.5 - 9.4 S/P 2 units of PRBC transfusion Hb Closely monitor H&H and transfuse additional as needed --Acute Renal Failure; creatinine 3.9 today likely vasomotor nephropathy vs ATN nephrology following, avoid nephrotoxins --Acute Hepatic Encephalopathy s/p lactulose,ammonia level trending down --Abnormal cadiac enzymes/NSTEMI type II Continue current management supportive care --Hypoglycemia, on D5; improved --Anemia of chronic disease, monitor h/h Transfuse as needed --Thrombocytopenia, due to CLD Closely monitor --Hyponatremia, due to dehydration, on ov fluid --Hypokalemia : replete per protocol and monitor levels --History of cirrhosis of liver: monitor LFT Supportive care --Coagulopathy : Due to cirrhosis liver No evidence of bleeding --Severe protein calorie malnutrition, supportive care Apartment [employer] Manager following --Multiple different stages decubitus pressure ulcers wound care.Surgical debridement as needed. --DVT prophalaxis with SCD Patient is critically ill, with very poor prognosis Monitor closely and adjust the management as needed Creative Guru recommendations noted and appreciated Full CODE STATUS, very poor prognosis The high probability of a clinically significant, sudden or life threatening deterioration of the [multiple] system(s) required my full and direct attention, intervention and personal management. The aggregate critical care time was [32] minutes. This time is in addition to time spent performing reported procedures but includes the following: [x] Data Review and interpretation [x] Patient assessment and monitoring of vital signs [x] Documentation [x] Medication orders and management History Interval history: Patient seen and examined this morning in ICU medical records reviewed Patient remains critically ill with very poor prognosis Sepsis with septic shock on norepinephrine. vasopressin DC'd this morning Patient is noncommunicative in acute distress On Ventimask Vital signs noted Hospitalist Physical - Constitutional Vitals: Temp Pulse Resp BP Pulse Ox 99 F 94 H 8 L 98/53 100 08/16/19 16:00 08/16/19 17:15 08/16/19 17:15 08/16/19 17:15 08/16/19 17:15 General appearance: Present: severe distress, cachectic, disheveled, other (Critically ill looking) - EENT Eyes: Present: PERRL, EOM intact - Neck Neck: Present: supple, normal ROM - Respiratory Respiratory effort: normal Respiratory: bilateral: diminished, rhonchi, negative: rales, wheezing - Cardiovascular Rhythm: regular Heart Sounds: Present: S1 & S2 - Extremities Extremities: no ischemia, No edema Results - Labs CBC & Chem 7: 08/16/19 05:10 08/16/19 05:10 Labs: Laboratory Last Values WBC 7.3 K/mm3 (4.5-11.0) 08/16/19 05:10 RBC 2.94 M/mm3 (3.65-5.03) L 08/16/19 05:10 Hgb 8.9 gm/dl (11.8-15.2) L 08/16/19 05:10 Hct 26.5 % (35.5-45.6) L 08/16/19 05:10 MCV 90 fl (84-94) 08/16/19 05:10 MCH 30 pg (28-32) 08/16/19 05:10 MCHC 34 % (32-34) 08/16/19 05:10 RDW 23.4 % (13.2-15.2) H 08/16/19 05:10 Plt Count 32 K/mm3 (140-440) L 08/16/19 05:10 Add Manual Diff Complete 08/14/19 Unknown Total Counted 100 08/14/19 Unknown Seg Neutrophils % [place] Operator 08/12/19 05:10 Seg Neuts % (Manual) 88.0 % (40.0-70.0) H 08/14/19 Unknown Band Neutrophils % 8.0 % 08/14/19 Unknown Lymphocytes % (Manual) 3.0 % (13.4-35.0) L 08/14/19 Unknown Reactive Lymphs % (Man) 0 % 08/14/19 Unknown Monocytes % (Manual) 1.0 % (0.0-7.3) 08/14/19 Unknown Eosinophils % (Manual) 0 % (0.0-4.3) 08/14/19 Unknown Basophils % (Manual) 0 % (0.0-1.8) 08/14/19 Unknown Metamyelocytes % 0 % 08/14/19 Unknown Myelocytes % 0 % 08/14/19 Unknown Promyelocytes % 0 % 08/14/19 Unknown Blast Cells % 0 % 08/14/19 Unknown Nucleated RBC % Not Reportable 08/14/19 Unknown Seg Neutrophils # Man 12.3 K/mm3 (1.8-7.7) H 08/14/19 Unknown Band Neutrophils # 1.1 K/mm3 08/14/19 Unknown Lymphocytes # (Manual) 0.4 K/mm3 (1.2-5.4) L 08/14/19 Unknown Abs React Lymphs (Man) 0.0 K/mm3 08/14/19 Unknown Monocytes # (Manual) 0.1 K/mm3 (0.0-0.8) 08/14/19 Unknown Eosinophils # (Manual) 0.0 K/mm3 (0.0-0.4) 08/14/19 Unknown Basophils # (Manual) 0.0 K/mm3 (0.0-0.1) 08/14/19 Unknown Metamyelocytes # 0.0 K/mm3 08/14/19 Unknown Myelocytes # 0.0 K/mm3 08/14/19 Unknown Promyelocytes # 0.0 K/mm3 08/14/19 Unknown Blast Cells # 0.0 K/mm3 08/14/19 Unknown WBC Morphology Not Reportable 08/14/19 Unknown Hypersegmented Neuts Not Reportable 08/14/19 Unknown Hyposegmented Neuts Not Reportable 08/14/19 Unknown Hypogranular Neuts Not Reportable 08/14/19 Unknown Smudge Cells Not Reportable 08/14/19 Unknown Toxic Granulation Not Reportable 08/14/19 Unknown Toxic Vacuolation Not Reportable 08/14/19 Unknown Dohle Bodies Not Reportable 08/14/19 Unknown Pelger-Huet Anomaly Not Reportable 08/14/19 Unknown Pastor Rods Not Reportable 08/14/19 Unknown Platelet Estimate Consistent w auto 08/14/19 Unknown Clumped Platelets Not Reportable 08/14/19 Unknown Plt Clumps, EDTA Not Reportable 08/14/19 Unknown Large Platelets Not Reportable 08/14/19 Unknown Giant Platelets Not Reportable 08/14/19 Unknown Platelet Satelliting Not Reportable 08/14/19 Unknown Plt Morphology Comment Not Reportable 08/14/19 Unknown RBC Morphology Not Reportable 08/14/19 Unknown Dimorphic RBCs Not Reportable 08/14/19 Unknown Polychromasia Not Reportable 08/14/19 Unknown Hypochromasia Not Reportable 08/14/19 Unknown Poikilocytosis Not Reportable 08/14/19 Unknown Anisocytosis 2+ 08/14/19 Unknown Microcytosis Rare 08/14/19 Unknown Macrocytosis 1+ 08/14/19 Unknown Spherocytes Not Reportable 08/14/19 Unknown Pappenheimer Bodies Not Reportable 08/14/19 Unknown Sickle Cells Not Reportable 08/14/19 Unknown Target Cells Not Reportable 08/14/19 Unknown Tear Drop Cells Not Reportable 08/14/19 Unknown Ovalocytes Not Reportable 08/14/19 Unknown Helmet Cells Not Reportable 08/14/19 Unknown [place] Bodies Not Reportable 08/14/19 Unknown Lumpkin Rings Not Reportable 08/14/19 Unknown Costilla Cells Not Reportable 08/14/19 Unknown Bite Cells Not Reportable 08/14/19 Unknown Crenated Cell Not Reportable 08/14/19 Unknown Elliptocytes Not Reportable 08/14/19 Unknown Acanthocytes (Spur) Not Reportable 08/14/19 Unknown Rouleaux Not Reportable 08/14/19 Unknown Hemoglobin C Crystals Not Reportable 08/14/19 Unknown Schistocytes Not Reportable 08/14/19 Unknown Malaria parasites Not Reportable 08/14/19 Unknown Ranjith Bodies Not Reportable 08/14/19 Unknown Hem Pathologist Commnt No 08/14/19 Unknown PT 25.2 Sec. (12.2-14.9) H 08/13/19 13:01 INR 2.34 (0.87-1.13) H 08/13/19 13:01 APTT 55.3 Sec. (24.2-36.6) H 08/12/19 05:10 POC ABG pH 7.332 (7.35-7.45) L 08/12/19 10:37 POC ABG pCO2 28.3 (35-45) L 08/12/19 10:37 POC ABG pO2 103 (80-105) 08/12/19 10:37 POC ABG HCO3 15.0 (22-26 mml/L) 08/12/19 10:37 POC ABG Total CO2 16 (23-27mmol/L) 08/12/19 10:37 POC ABG O2 Sat 98 08/12/19 10:37 POC ABG Base Excess -11 ((-2) - (+3)mmol/L) 08/12/19 10:37 FiO2 40 % 08/12/19 10:37 Sodium 138 mmol/L (137-145) 08/16/19 05:10 Potassium 3.4 mmol/L (3.6-5.0) L 08/16/19 05:10 Chloride 103.6 mmol/L (98-107) 08/16/19 05:10 Carbon Dioxide 13 mmol/L (22-30) L 08/16/19 05:10 Anion Gap 25 mmol/L 08/16/19 05:10 BUN 69 mg/dL (9-20) H 08/16/19 05:10 Creatinine 3.9 mg/dL (0.8-1.5) H 08/16/19 05:10 Estimated GFR 15 ml/min 08/16/19 05:10 BUN/Creatinine Ratio 18 % 08/16/19 05:10 Glucose 105 mg/dL (75-100) H 08/16/19 05:10 POC Glucose 113 (70-105) H 08/16/19 12:38 Lactic Acid 2.90 mmol/L (0.7-2.0) H* 08/12/19 06:15 Calcium 7.2 mg/dL (8.4-10.2) L 08/16/19 05:10 Total Bilirubin 3.40 mg/dL (0.1-1.2) H 08/16/19 05:10 Direct Bilirubin 2.7 mg/dL (0-0.2) H 08/14/19 Unknown Indirect Bilirubin 1.0 mg/dL 08/14/19 Unknown AST 30 units/L (5-40) 08/16/19 05:10 ALT 14 units/L (7-56) 08/16/19 05:10 Alkaline Phosphatase 108 units/L (35-129) 08/16/19 05:10 Ammonia 66.0 umol/L (25-60) H 08/12/19 06:15 Total Creatine Kinase 44 units/L (55-170) L 08/12/19 05:10 CK-MB (CK-2) 8.3 ng/mL (0.0-4.0) H 08/12/19 05:10 CK-MB (CK-2) Rel Index 18.8 (0-4) H 08/12/19 05:10 Troponin T 0.077 ng/mL (0.00-0.029) H 08/12/19 05:10 Total Protein 5.5 g/dL (6.3-8.2) L 08/16/19 05:10 Albumin 3.1 g/dL (3.9-5) L 08/16/19 05:10 Albumin/Globulin Ratio 1.3 % 08/16/19 05:10 Triglycerides 93 mg/dL (2-149) 08/11/19 20:11 Cholesterol 168 mg/dL (50-199) 08/11/19 20:11 LDL Cholesterol Direct 140 mg/dL (50-130) H 08/11/19 20:11 HDL Cholesterol 14 mg/dL (40-59) L 08/11/19 20:11 Cholesterol/HDL Ratio 12.00 % 08/11/19 20:11 TSH 2.280 mlU/mL (0.270-4.200) 08/11/19 20:12 Urine Color Vee (Yellow) 08/12/19 02:42 Urine Turbidity Cloudy (Clear) 08/12/19 02:42 Urine pH 6.0 (5.0-7.0) 08/12/19 02:42 Ur Specific [place] 1.010 (1.003-1.030) 08/12/19 02:42 Urine Protein 100 mg/dl mg/dL (Negative) 08/12/19 02:42 Urine Glucose (UA) Neg mg/dL (Negative) 08/12/19 02:42 Urine Ketones Neg mg/dL (Negative) 08/12/19 02:42 Urine Blood Mod (Negative) 08/12/19 02:42 Urine Nitrite Neg (Negative) 08/12/19 02:42 Urine Bilirubin Neg (Negative) 08/12/19 02:42 Urine Urobilinogen < 2.0 mg/dL (<2.0) 08/12/19 02:42 Ur Leukocyte Esterase Lg (Negative) 08/12/19 02:42 Urine WBC (Auto) > 182.0 /HPF (0.0-6.0) H 08/12/19 02:42 Urine RBC (Auto) 103.0 /HPF (0.0-6.0) 08/12/19 02:42 U Epithel Cells (Auto) 5.0 /HPF (0-13.0) 08/12/19 02:42 Urine Bacteria (Auto) 2+ /HPF (Negative) 08/12/19 02:42 Urine WBC Clumps 3+ /HPF 08/12/19 02:42 Urine Mucus 3+ /HPF 08/12/19 02:42 Random Vancomycin 11.1 ug/mL (0-40.0) 08/14/19 Unknown Salicylates < 0.3 mg/dL (2.8-20.0) L 08/11/19 20:11 Acetaminophen < 5.0 ug/mL (10.0-30.0) L 08/11/19 20:11 Plasma/Serum Alcohol < 0.01 % (0-0.07) 08/11/19 20:14 Hepatitis A IgM Ab Non-reactive (NonReactive) 08/13/19 00:30 Hep Bs Antigen Non-reactive (Negative) 08/13/19 00:30 Hep B Core IgM Ab Non-reactive (NonReactive) 08/13/19 00:30 Hepatitis C Antibody Non-reactive (NonReactive) 08/13/19 00:30 Blood Type A NEGATIVE 08/14/19 20:30 Antibody Screen Negative 08/14/19 20:30 Crossmatch See Detail 08/14/19 20:30 Active Medications - Current Medications Current Medications: Generic Name Dose Route Start Last Admin Trade Name Freq PRN Reason Stop Dose Admin Albumin Human 25 gm 08/16/19 13:00 08/16/19 13:50 Alburx 25% (Albumin) IV 08/17/19 07:01 25 gm Q6H FORTINO Administration Lipase/Protease/Amylase 1 each 08/15/19 14:[address] 10,500 Unit FEEDTUBE PRN PRN For Clogged Feeding Tube Dextrose 0 ml 08/11/19 23:00 08/15/19 18:37 D50w (25gm) Syringe IV 50 ml Q30MIN PRN Administration Hypoglycemia Protocol Norepinephrine 4 mg in 250 mls @ 7.5 mls/hr 08/11/19 22:00 08/16/19 09:42 Levophed Drip 4 Mg/Ns 250 Ml IV 4 mcg/min TITR FORTINO 15 mls/hr Administration Protocol 2 MCG/MIN Vasopressin 20 unit/ Sodium 101 mls @ 9.09 mls/hr 08/12/19 11:00 08/16/19 11:16 Chloride IV 0 units/min TITR FORTINO 0 mls/hr Titration Protocol 0.03 UNITS/MIN MEROPENEM/NS 1 GRAM/100 ML 1 gram in 100 mls @ 100 mls/hr 08/12/19 14:30 08/16/19 09:40 Merrem/Ns 1 Gram/100 Ml IV 100 mls/hr Q24HR FORTINO Administration Protocol Daptomycin 500 mg/ Sodium 100 mls @ 200 mls/hr 08/15/19 15:00 08/15/19 16:57 Chloride IV 200 mls/hr Q48H FORTINO Administration Protocol Sodium Bicarbonate 150 meq/ 1,150 mls @ 50 mls/hr 08/15/19 17:00 08/16/19 14:14 Dextrose IV 50 mls/hr DIRECT FORTINO Administration Lansoprazole 30 mg 08/13/19 10:00 08/16/19 09:43 Prevacid Solutab FEEDTUBE 30 mg BID FORTINO Administration Ondansetron HCl 4 mg 08/11/19 23:13 Zofran IV Q8H PRN Nausea And Vomiting Rifaximin 550 mg 08/13/19 10:00 08/16/19 09:41 Xifaxan PO 550 mg BID FORTINO Administration Simple Syrup 15 ml 08/15/19 14:03 Simple Syrup FEEDTUBE PRN PRN Hypoglycemia Simple Syrup 30 ml 08/15/19 14:03 Simple Syrup FEEDTUBE PRN PRN Hypoglycemia Sodium Bicarbonate 1,300 mg 08/13/19 14:00 08/16/19 14:07 Sodium Bicarbonate PO 1,300 mg TID FORTINO Administration Sodium Bicarbonate 325 mg 08/15/19 14:03 Sodium Bicarbonate FEEDTUBE PRN PRN For Clogged Feeding Tube Sodium Chloride 10 ml 08/12/19 10:00 08/16/19 09:43 Sodium Chloride Flush Syringe 10 Ml IV 10 ml BID FORTINO Administration Sodium Chloride 10 ml 08/11/19 23:13 08/13/19 21:54 Sodium Chloride Flush Syringe 10 Ml IV 10 ml PRN PRN Administration LINE FLUSH Nutrition/Malnutrition Assess - Dietary Evaluation Nutrition/Malnutrition Findings: Nutrition Notes Start: 12/03/19 10:16 Freq: Status: Active Protocol: Document 08/15/19 13:30 DW (Rec: 08/15/19 14:38 DW [email or web address]) Co-Sign 08/15/19 13:30 LP Nutrition Notes Initial or Follow up Reassessment Current Diagnosis Acute Kidney Injury Other Pertinent Diagnosis Etoh dependence, cirrhosis, hepatic encephalopathy, 2+ edema, skin tears Current Diet NPO Labs/Tests K 3.2 BUN 60 Cr 4.0 Glu 125 Pertinent Medications Levophed Vasopressin Height 6 ft 2 in Weight 91.7 kg [place] Body Weight (kg) 86.36 BMI 25.9 Subjective/Other Information MD verbal consult for potential trickle feed if pt weaned from multiple pressors Burn Absent Trauma Absent Minimum of two criteria Yes Energy Intake (non-severe) <75% Estimated Energy Requirement >7 days Muscle Mass Mild Depletion (non-severe) Fluid Accumulation Mild (non-severe) #3 Nutrition Diagnosis Inadequate oral intake Diagnosis Progress(for reassessment Continues documentation) #2 Nutrition Diagnosis Malnutrition Diagnosis Progress(for reassessment Continues documentation) #1 Nutrition Diagnosis Increased nutrient needs ( specify in comment below) Diagnosis Progress(for reassessment Continues documentation) Is patient on ventilator? No Is Patient Ambulatory and/or Out of Bed No REE-([facility]-confined to bed) 2083.004 Calculation Used for Recommendations [facility] Additional Notes PRO needs: 110-137g (1.2-1.5g/ kg) Fluid needs: Per MD Nutrition Intervention Change Diet Order: Trickle feed when medically able Nutrition Support: Osmolite 1.5 at 10ml/hr with 50ml water flush q4h Kcal 360 Protein (gm) 15 Fluid (mL) 182 Goal #1 Trickle feed when medically able Goal #2 trickle tolerance Goal #3 wound healing Anticipated Discharge Needs: Unable to Determine at This Time Follow-Up By: 08/18/19 Additional Comments Tricle feed start
[2019-08-17] MEDS: ALBUMIN HUMAN 25% (25 GM/100 ML) INJ IV SCH ×2 (01:35→06:48)
[2019-08-17] MEDS: NORepinephrine/NS 4 MG-250 ML 4 MG/250 ML BAG IV SCH (02:02)
[2019-08-17 06:38] LABS: Hematocrit 24.8 % (35.5-45.6); Hemoglobin 8.4 gm/dl (11.8-15.2); Mean Corpuscular HGB Conc 34 % (32-34); Mean Corpuscular Volume 90 fl (84-94); Red Blood Count 2.74 M/mm3 (3.65-5.03)
[2019-08-17 07:02] LABS: Albumin 3.9 g/dL (3.9-5); Calcium 7.3 mg/dL (8.4-10.2)
[2019-08-17 07:05] LABS: Platelet Count 23 K/mm3 (140-440); Red Cell Distribution Width 23.8 % (13.2-15.2)
[2019-08-17] MEDS: SODIUM BICARBONATE 650 MG TAB PO SCH ×3 (08:12→23:39)
[2019-08-17] MEDS ORDERED: MAGNESIUM SULFATE 2 GM/50 ML BAG IV ONE (09:31)
--- NOTE | 2019-08-17 09:45 | Progress Note ---
Assessment and Plan Assessment and plan: --Septic Shock : on levophed, off vasopressin Titrate systolic blood pressure to more than 100 IV fluids as needed --Hypomagnesemia ; replenish with mag sulfate IV Monitor electrolytes --Sepsis; secondary to UTI; Urine cultures negative to date, patient has history of VRE Continue daptomycin and meropenem per ID contact isolation --Severe Thrombocytopenia, cirrhosis liver/sepsis Closely monitor, no evidence of bleeding Hematology consult, platelet transfusion if needed --Anemia; S/P 2 units of PRBC transfusion hemoglobin level improved, monitor closely --Acute Renal Failure; creatinine 3.9 today likely vasomotor nephropathy vs ATN nephrology following, avoid nephrotoxins --Acute Hepatic Encephalopathy s/p lactulose,ammonia level trending down --Abnormal cadiac enzymes/NSTEMI type II Continue current management supportive care --Hypoglycemia, on D5; improved --Anemia of chronic disease, monitor h/h Transfuse as needed --Hyponatremia, resolved Monitor electrolytes --Hypokalemia : Corrected --History of cirrhosis of liver: monitor LFT Supportive care --Coagulopathy : Due to cirrhosis liver No evidence of bleeding --Severe protein calorie malnutrition, supportive care Hand I Blocker following --Multiple decubitus ulcers of different stages wound care.Surgical debridement as needed. --DVT prophalaxis with SCD Patient is critically ill, with very poor prognosis Full CODE STATUS, very poor prognosis The high probability of a clinically significant, sudden or life threatening deterioration of the [multiple] system(s) required my full and direct attention, intervention and personal management. The aggregate critical care time was [32] minutes. This time is in addition to time spent performing reported procedures but includes the following: [x] Data Review and interpretation [x] Patient assessment and monitoring of vital signs [x] Documentation [x] Medication orders and management History Interval history: Patient seen and examined medical records reviewed Patient is more alert today, minimally communicative Patient is in mild distress off vasopressin, Levophed is being weaned Vital signs noted Hospitalist Physical - Constitutional Vitals: Temp Pulse Resp BP Pulse Ox 97.2 F L 105 H 15 117/64 100 08/17/19 08:00 08/17/19 09:30 08/17/19 09:30 08/17/19 09:30 08/17/19 09:30 General appearance: Present: mild distress, cachectic, disheveled, other (Critically ill looking) - EENT Eyes: Present: PERRL, EOM intact - Neck Neck: Present: supple, normal ROM - Respiratory Respiratory effort: normal Respiratory: bilateral: diminished, rhonchi, negative: rales, wheezing - Cardiovascular Rhythm: regular Heart Sounds: Present: S1 & S2 - Extremities Extremities: no ischemia, No edema - Abdominal General gastrointestinal: soft, non-tender, non-distended, normal bowel sounds - Integumentary Integumentary: Present: clear, warm - Psychiatric Psychiatric: appropriate mood/affect, cooperative - Neurologic Neurologic: CNII-XII intact, moves all extremities Results - Labs CBC & Chem 7: 08/17/19 06:27 08/17/19 06:27 Labs: Laboratory Last Values WBC 7.2 K/mm3 (4.5-11.0) 08/17/19 06:27 RBC 2.74 M/mm3 (3.65-5.03) L 08/17/19 06:27 Hgb 8.4 gm/dl (11.8-15.2) L 08/17/19 06:27 Hct 24.8 % (35.5-45.6) L 08/17/19 06:27 MCV 90 fl (84-94) 08/17/19 06:27 MCH 31 pg (28-32) 08/17/19 06:27 MCHC 34 % (32-34) 08/17/19 06:27 RDW 23.8 % (13.2-15.2) H 08/17/19 06:27 Plt Count 23 K/mm3 (140-440) L 08/17/19 06:27 Add Manual Diff Complete 08/14/19 Unknown Total Counted 100 08/14/19 Unknown Seg Neutrophils % [employer] 08/12/19 05:10 Seg Neuts % (Manual) 88.0 % (40.0-70.0) H 08/14/19 Unknown Band Neutrophils % 8.0 % 08/14/19 Unknown Lymphocytes % (Manual) 3.0 % (13.4-35.0) L 08/14/19 Unknown Reactive Lymphs % (Man) 0 % 08/14/19 Unknown Monocytes % (Manual) 1.0 % (0.0-7.3) 08/14/19 Unknown Eosinophils % (Manual) 0 % (0.0-4.3) 08/14/19 Unknown Basophils % (Manual) 0 % (0.0-1.8) 08/14/19 Unknown Metamyelocytes % 0 % 08/14/19 Unknown Myelocytes % 0 % 08/14/19 Unknown Promyelocytes % 0 % 08/14/19 Unknown Blast Cells % 0 % 08/14/19 Unknown Nucleated RBC % Not Reportable 08/14/19 Unknown Seg Neutrophils # Man 12.3 K/mm3 (1.8-7.7) H 08/14/19 Unknown Band Neutrophils # 1.1 K/mm3 08/14/19 Unknown Lymphocytes # (Manual) 0.4 K/mm3 (1.2-5.4) L 08/14/19 Unknown Abs React Lymphs (Man) 0.0 K/mm3 08/14/19 Unknown Monocytes # (Manual) 0.1 K/mm3 (0.0-0.8) 08/14/19 Unknown Eosinophils # (Manual) 0.0 K/mm3 (0.0-0.4) 08/14/19 Unknown Basophils # (Manual) 0.0 K/mm3 (0.0-0.1) 08/14/19 Unknown Metamyelocytes # 0.0 K/mm3 08/14/19 Unknown Myelocytes # 0.0 K/mm3 08/14/19 Unknown Promyelocytes # 0.0 K/mm3 08/14/19 Unknown Blast Cells # 0.0 K/mm3 08/14/19 Unknown WBC Morphology Not Reportable 08/14/19 Unknown Hypersegmented Neuts Not Reportable 08/14/19 Unknown Hyposegmented Neuts Not Reportable 08/14/19 Unknown Hypogranular Neuts Not Reportable 08/14/19 Unknown Smudge Cells Not Reportable 08/14/19 Unknown Toxic Granulation Not Reportable 08/14/19 Unknown Toxic Vacuolation Not Reportable 08/14/19 Unknown Dohle Bodies Not Reportable 08/14/19 Unknown Pelger-Huet Anomaly Not Reportable 08/14/19 Unknown Pastor Rods Not Reportable 08/14/19 Unknown Platelet Estimate Consistent w auto 08/14/19 Unknown Clumped Platelets Not Reportable 08/14/19 Unknown Plt Clumps, EDTA Not Reportable 08/14/19 Unknown Large Platelets Not Reportable 08/14/19 Unknown Giant Platelets Not Reportable 08/14/19 Unknown Platelet Satelliting Not Reportable 08/14/19 Unknown Plt Morphology Comment Not Reportable 08/14/19 Unknown RBC Morphology Not Reportable 08/14/19 Unknown Dimorphic RBCs Not Reportable 08/14/19 Unknown Polychromasia Not Reportable 08/14/19 Unknown Hypochromasia Not Reportable 08/14/19 Unknown Poikilocytosis Not Reportable 08/14/19 Unknown Anisocytosis 2+ 08/14/19 Unknown Microcytosis Rare 08/14/19 Unknown Macrocytosis 1+ 08/14/19 Unknown Spherocytes Not Reportable 08/14/19 Unknown Pappenheimer Bodies Not Reportable 08/14/19 Unknown Sickle Cells Not Reportable 08/14/19 Unknown Target Cells Not Reportable 08/14/19 Unknown Tear Drop Cells Not Reportable 08/14/19 Unknown Ovalocytes Not Reportable 08/14/19 Unknown Helmet Cells Not Reportable 08/14/19 Unknown [place] Bodies Not Reportable 08/14/19 Unknown [place] Rings Not Reportable 08/14/19 Unknown Radha Cells Not Reportable 08/14/19 Unknown Bite Cells Not Reportable 08/14/19 Unknown Crenated Cell Not Reportable 08/14/19 Unknown Elliptocytes Not Reportable 08/14/19 Unknown Acanthocytes (Spur) Not Reportable 08/14/19 Unknown Rouleaux Not Reportable 08/14/19 Unknown Hemoglobin C Crystals Not Reportable 08/14/19 Unknown Schistocytes Not Reportable 08/14/19 Unknown Malaria parasites Not Reportable 08/14/19 Unknown Ranjith Bodies Not Reportable 08/14/19 Unknown Hem Pathologist Commnt No 08/14/19 Unknown PT 25.2 Sec. (12.2-14.9) H 08/13/19 13:01 INR 2.34 (0.87-1.13) H 08/13/19 13:01 APTT 55.3 Sec. (24.2-36.6) H 08/12/19 05:10 POC ABG pH 7.332 (7.35-7.45) L 08/12/19 10:37 POC ABG pCO2 28.3 (35-45) L 08/12/19 10:37 POC ABG pO2 103 (80-105) 08/12/19 10:37 POC ABG HCO3 15.0 (22-26 mml/L) 08/12/19 10:37 POC ABG Total CO2 16 (23-27mmol/L) 08/12/19 10:37 POC ABG O2 Sat 98 08/12/19 10:37 POC ABG Base Excess -11 ((-2) - (+3)mmol/L) 08/12/19 10:37 FiO2 40 % 08/12/19 10:37 Sodium 139 mmol/L (137-145) 08/17/19 06:27 Potassium 3.7 mmol/L (3.6-5.0) 08/17/19 06:27 Chloride 105.5 mmol/L (98-107) 08/17/19 06:27 Carbon Dioxide 16 mmol/L (22-30) L 08/17/19 06:27 Anion Gap 21 mmol/L 08/17/19 06:27 BUN 66 mg/dL (9-20) H 08/17/19 06:27 Creatinine 3.9 mg/dL (0.8-1.5) H 08/17/19 06:27 Estimated GFR 15 ml/min 08/17/19 06:27 BUN/Creatinine Ratio 17 % 08/17/19 06:27 Glucose 93 mg/dL (75-100) 08/17/19 06:27 POC Glucose 105 (70-105) 08/17/19 05:14 Lactic Acid 2.90 mmol/L (0.7-2.0) H* 08/12/19 06:15 Calcium 7.3 mg/dL (8.4-10.2) L 08/17/19 06:27 Phosphorus 3.70 mg/dL (2.5-4.5) 08/17/19 06:27 Magnesium 1.60 mg/dL (1.7-2.3) L 08/17/19 06:27 Total Bilirubin 3.70 mg/dL (0.1-1.2) H 08/17/19 06:27 Direct Bilirubin 2.7 mg/dL (0-0.2) H 08/14/19 Unknown Indirect Bilirubin 1.0 mg/dL 08/14/19 Unknown AST 23 units/L (5-40) 08/17/19 06:27 ALT 10 units/L (7-56) 08/17/19 06:27 Alkaline Phosphatase 93 units/L (35-129) 08/17/19 06:27 Ammonia 48.0 umol/L (25-60) 08/17/19 06:27 Total Creatine Kinase 44 units/L (55-170) L 08/12/19 05:10 CK-MB (CK-2) 8.3 ng/mL (0.0-4.0) H 08/12/19 05:10 CK-MB (CK-2) Rel Index 18.8 (0-4) H 08/12/19 05:10 Troponin T 0.077 ng/mL (0.00-0.029) H 08/12/19 05:10 Total Protein 5.9 g/dL (6.3-8.2) L 08/17/19 06:27 Albumin 3.9 g/dL (3.9-5) 08/17/19 06:27 Albumin/Globulin Ratio 2.0 % 08/17/19 06:27 Triglycerides 93 mg/dL (2-149) 08/11/19 20:11 Cholesterol 168 mg/dL (50-199) 08/11/19 20:11 LDL Cholesterol Direct 140 mg/dL (50-130) H 08/11/19 20:11 HDL Cholesterol 14 mg/dL (40-59) L 08/11/19 20:11 Cholesterol/HDL Ratio 12.00 % 08/11/19 20:11 TSH 2.280 mlU/mL (0.270-4.200) 08/11/19 20:12 Urine Color Vee (Yellow) 08/12/19 02:42 Urine Turbidity Cloudy (Clear) 08/12/19 02:42 Urine pH 6.0 (5.0-7.0) 08/12/19 02:42 Ur Specific [place] 1.010 (1.003-1.030) 08/12/19 02:42 Urine Protein 100 mg/dl mg/dL (Negative) 08/12/19 02:42 Urine Glucose (UA) Neg mg/dL (Negative) 08/12/19 02:42 Urine Ketones Neg mg/dL (Negative) 08/12/19 02:42 Urine Blood Mod (Negative) 08/12/19 02:42 Urine Nitrite Neg (Negative) 08/12/19 02:42 Urine Bilirubin Neg (Negative) 08/12/19 02:42 Urine Urobilinogen < 2.0 mg/dL (<2.0) 08/12/19 02:42 Ur Leukocyte Esterase Lg (Negative) 08/12/19 02:42 Urine WBC (Auto) > 182.0 /HPF (0.0-6.0) H 08/12/19 02:42 Urine RBC (Auto) 103.0 /HPF (0.0-6.0) 08/12/19 02:42 U Epithel Cells (Auto) 5.0 /HPF (0-13.0) 08/12/19 02:42 Urine Bacteria (Auto) 2+ /HPF (Negative) 08/12/19 02:42 Urine WBC Clumps 3+ /HPF 08/12/19 02:42 Urine Mucus 3+ /HPF 08/12/19 02:42 Random Vancomycin 11.1 ug/mL (0-40.0) 08/14/19 Unknown Salicylates < 0.3 mg/dL (2.8-20.0) L 08/11/19 20:11 Acetaminophen < 5.0 ug/mL (10.0-30.0) L 08/11/19 20:11 Plasma/Serum Alcohol < 0.01 % (0-0.07) 08/11/19 20:14 Hepatitis A IgM Ab Non-reactive (NonReactive) 08/13/19 00:30 Hep Bs Antigen Non-reactive (Negative) 08/13/19 00:30 Hep B Core IgM Ab Non-reactive (NonReactive) 08/13/19 00:30 Hepatitis C Antibody Non-reactive (NonReactive) 08/13/19 00:30 Blood Type A NEGATIVE 08/14/19 20:30 Antibody Screen Negative 08/14/19 20:30 Crossmatch See Detail 08/14/19 20:30 Active Medications - Current Medications Current Medications: Generic Name Dose Route Start Last Admin Trade Name Freq PRN Reason Stop Dose Admin Lipase/Protease/Amylase 1 each 08/15/19 14:03 Pancremaryam Lawson 10,500 Unit FEEDTUBE PRN PRN For Clogged Feeding Tube Dextrose 0 ml 08/11/19 23:00 08/15/19 18:37 D50w (25gm) Syringe IV 50 ml Q30MIN PRN Administration Hypoglycemia Protocol Norepinephrine 4 mg in 250 mls @ 7.5 mls/hr 08/11/19 22:00 08/17/19 02:02 Levophed Drip 4 Mg/Ns 250 Ml IV 4 mcg/min TITR FORTINO 15 mls/hr Administration Protocol 2 MCG/MIN Vasopressin 20 unit/ Sodium 101 mls @ 9.09 mls/hr 08/12/19 11:00 08/16/19 11:16 Chloride IV 0 units/min TITR FORTINO 0 mls/hr Titration Protocol 0.03 UNITS/MIN MEROPENEM/NS 1 GRAM/100 ML 1 gram in 100 mls @ 100 mls/hr 08/12/19 14:30 08/16/19 09:40 Merrem/Ns 1 Gram/100 Ml IV 100 mls/hr Q24HR FORTINO Administration Protocol Daptomycin 500 mg/ Sodium 100 mls @ 200 mls/hr 08/15/19 15:00 08/15/19 16:57 Chloride IV 200 mls/hr Q48H FORTINO Administration Protocol Sodium Bicarbonate 150 meq/ 1,150 mls @ 50 mls/hr 08/15/19 17:00 08/16/19 14:14 Dextrose IV 50 mls/hr DIRECT FORTINO Administration Magnesium Sulfate 2 gm in 50 mls @ 25 mls/hr 08/17/19 09:31 Magnesium Sulfate 2gm/50ml IV 08/17/19 11:30 ONCE ONE Lansoprazole 30 mg 08/13/19 10:00 08/16/19 21:50 Prevacid Solutab FEEDTUBE 30 mg BID FORTINO Administration Ondansetron HCl 4 mg 08/11/19 23:13 Zofran IV Q8H PRN Nausea And Vomiting Rifaximin 550 mg 08/13/19 10:00 08/16/19 21:50 Xifaxan PO 550 mg BID FORTINO Administration Simple Syrup 15 ml 08/15/19 14:03 Simple Syrup FEEDTUBE PRN PRN Hypoglycemia Simple Syrup 30 ml 08/15/19 14:03 Simple Syrup FEEDTUBE PRN PRN Hypoglycemia Sodium Bicarbonate 1,300 mg 08/13/19 14:00 08/17/19 08:12 Sodium Bicarbonate PO 1,300 mg TID FORTINO Administration Sodium Bicarbonate 325 mg 08/15/19 14:03 Sodium Bicarbonate FEEDTUBE PRN PRN For Clogged Feeding Tube Sodium Chloride 10 ml 08/12/19 10:00 08/16/19 21:50 Sodium Chloride Flush Syringe 10 Ml IV 10 ml BID FORTINO Administration Sodium Chloride 10 ml 08/11/19 23:13 08/13/19 21:54 Sodium Chloride Flush Syringe 10 Ml IV 10 ml PRN PRN Administration LINE FLUSH Nutrition/Malnutrition Assess - Dietary Evaluation Nutrition/Malnutrition Findings: Nutrition Notes Start: 08/12/19 10:16 Freq: Status: Active Protocol: Document 08/15/19 13:30 DW (Rec: 08/15/19 14:38 DW [email or web address]) Co-Sign 08/15/19 13:30 LP Nutrition Notes Initial or Follow up Reassessment Current Diagnosis Acute Kidney Injury Other Pertinent Diagnosis Etoh dependence, cirrhosis, hepatic encephalopathy, 2+ edema, skin tears Current Diet NPO Labs/Tests K 3.2 BUN 60 Cr 4.0 Glu 125 Pertinent Medications Levophed Vasopressin Height 6 ft 2 in Weight 91.7 kg [place] Body Weight (kg) 86.36 BMI 25.9 Subjective/Other Information verbal consult for potential trickle feed if pt weaned from multiple pressors Burn Absent Trauma Absent Minimum of two criteria Yes Energy Intake (non-severe) <75% Estimated Energy Requirement >7 days Muscle Mass Mild Depletion (non-severe) Fluid Accumulation Mild (non-severe) #3 Nutrition Diagnosis Inadequate oral intake Diagnosis Progress(for reassessment Continues documentation) #2 Nutrition Diagnosis Malnutrition Diagnosis Progress(for reassessment Continues documentation) #1 Nutrition Diagnosis Increased nutrient needs ( specify in comment below) Diagnosis Progress(for reassessment Continues documentation) Is patient on ventilator? No Is Patient Ambulatory and/or Out of Bed No REE-([facility]-confined to bed) 7.004 Calculation Used for Recommendations [facility] Additional Notes PRO needs: 110-137g (1.2-1.5g/ kg) Fluid needs: Per Nutrition Intervention Change Diet Order: Trickle feed when medically able Nutrition Support: Osmolite 1.5 at 10ml/hr with 50ml water flush q4h Kcal 360 Protein (gm) 15 Fluid (mL) 182 Goal #1 Trickle feed when medically able Goal #2 trickle tolerance Goal #3 wound healing Anticipated Discharge Needs: Unable to Determine at This Time Follow-Up By: 08/18/19 Additional Comments Tricle feed start
[2019-08-17] MEDS: RIFAXIMIN 550 MG TAB PO SCH ×2 (09:54→23:39)
[2019-08-17] MEDS: LANSOPRAZOLE 30 MG SOLUTAB FEEDTUBE SCH ×2 (09:54→23:39)
[2019-08-17] MEDS: MEROPENEM/NS 1 GRAM/100 ML 1 GRAM/100 ML BAG IV SCH (09:55)
[2019-08-17 10:18] LABS: Eosinophils % (Auto) 0.6 % (0.0-4.3); Monocytes # (Auto) 0.1 K/mm3 (0.0-0.8)
[2019-08-17 10:42] LABS: Band Neutrophils # (Manual) 0.1 K/mm3; Basophils % (Manual) 0 % (0.0-1.8); Eosinophils % (Manual) 0 % (0.0-4.3); Total Cells Counted 100
[2019-08-17 10:43] LABS: Platelet Estimate Consistent w Auto; Target Cells Few; Tear Drop Cells Few
[2019-08-17] MEDS: SODIUM BICARBONATE 150 MEQ in DEXTROSE 5% IN WATER 1,000 ML IV SCH (12:16)
--- NOTE | 2019-08-17 13:17 | Progress Note ---
Assessment and Plan Cultures: 08/11/2019 blood culture: no growth 08/12/2019 urine culture: no growth A/P: 74-year-old male with extensive alcohol abuse, alcoholic cirrhosis, decubitus ulcers, recent hospitalization, now admitted with: #Shock, hypothermia, likely septic: etiology unclear. Possibly urine given signi ficant pyuria v/s SBP, he has ascites on US. Remains on pressors. #UTI: now has hewitt placed. Has history of VRE UTI, got linezolid in ER, hold off on additional linezolid in the setting of thrombocytopenia and negative urine culture. #Lactic acidosis #Acute renal failure: renally dose abx. #Thrombocytopenia #H/O alcohol abuse, hepatic encephalopathy #Multiple skin tears jeanie arms ?cellulitis, malnutrition: recommend wound care. Recs: continue IV Meropenem renally adjusted continue renally adjusted IV Daptomycin ?SBP, could consider diagnostic paracentesis with cell count and cultures, yield may be low given patient already on antibiotics Prognosis is extremely poor remove hewitt when possible will f/u Shalini Hinkle MD Infectious Diseases [employer] [facility] M [phone] O [phone] Subjective Date of service: 08/17/19 Principal diagnosis: shock Interval history: Remains on levophed at 2, no fever, somnolent Objective - Exam Narrative Exam: General appearance: somnolent in NAD vent mask Eyes: anicteric sclerae, moist conjunctivae; no lid-lag; PERRLA HENT: Atraumatic; oropharynx limted mask Lungs: CTA, with normal respiratory effort and no intercostal retractions CV: irregular Abdomen: Soft, non-tender Extremities: no edema, no cyanosis Skin: extensive jeanie arm skin tear, edema, and leg edema, scrotal edema Psych: no agitated Neuro: somnolent neck IJ - Constitutional Vitals: Vital Signs Temp Pulse Resp BP Pulse Ox 97.1 F L 104 H 13 94/55 100 08/17/19 12:00 08/17/19 13:00 08/17/19 13:00 08/17/19 13:00 08/17/19 13:00 Temperature -Last 24 Hours Temperature 97.1 F Temperature 97.2 F Temperature 97.2 F Temperature 97.1 F Temperature 98.8 F Temperature 97.4 F Temperature 99 F - Labs CBC & Chem 7: 08/17/19 06:27 08/17/19 06:27 Labs: Abnormal lab results 08/15/19 08/17/19 08/17/19 Range/Units 17:46 00:04 06:27 RBC 2.74 L (3.65-5.03) M/mm3 Hgb 8.4 L (11.8-15.2) gm/dl Hct 24.8 L (35.5-45.6) % RDW 23.8 H (13.2-15.2) % Plt Count 23 L (140-440) K/mm3 Seg Neutrophils % 83.7 H (40.0-70.0) % Seg Neuts % (Manual) 81.0 H (40.0-70.0) % Lymphocytes # (Manual) 1.1 L (1.2-5.4) K/mm3 Carbon Dioxide (22-30) mmol/L BUN (9-20) mg/dL Creatinine (0.8-1.5) mg/dL POC Glucose 68 L 148 H (70-105) Calcium (8.4-10.2) mg/dL Magnesium (1.7-2.3) mg/dL Total Bilirubin (0.1-1.2) mg/dL Total Protein (6.3-8.2) g/dL 08/17/19 Range/Units 06:27 RBC (3.65-5.03) M/mm3 Hgb (11.8-15.2) gm/dl Hct (35.5-45.6) % RDW (13.2-15.2) % Plt Count (140-440) K/mm3 Seg Neutrophils % (40.0-70.0) % Seg Neuts % (Manual) (40.0-70.0) % Lymphocytes # (Manual) (1.2-5.4) K/mm3 Carbon Dioxide 16 L (22-30) mmol/L BUN 66 H (9-20) mg/dL Creatinine 3.9 H (0.8-1.5) mg/dL POC Glucose (70-105) Calcium 7.3 L (8.4-10.2) mg/dL Magnesium 1.60 L (1.7-2.3) mg/dL Total Bilirubin 3.70 H (0.1-1.2) mg/dL Total Protein 5.9 L (6.3-8.2) g/dL
[2019-08-17] MEDS ORDERED: LACTULOSE 20 GM/30 ML ORAL LIQD PO PRN (13:28)
--- NOTE | 2019-08-17 13:32 | Progress Note ---
Assessment and Plan 74 y/o male admitted with altered mental state, hypotension, hypothermia and hypoglycemia. 1. Neuro: lactulose q4 until BM then can stretch to q6. If no BM after 2 doses then will need to increase frequency to q2h until BM 2. Stable on Venti mask at 35%. Not able to wean off as he is a mouth breather. 3. Still hypotensive. Will start patient on midodrine. 10 TID. Levophed turned off while I was at the bedside. 4. Strict I/O's 5. Feed patient today. STart Nepro 6. Renal function stable. Follow up any new renal recs. 7. Hold on paracentesis CCT 31 minutes. Subjective Date of service: 08/17/19 Principal diagnosis: shock Interval history: Down to 2 mcgs on the levophed. Vaso off. Objective - Constitutional Vitals: Vital Signs - 12hr 08/17/19 08/17/19 08/17/19 01:45 02:00 02:15 Temperature Pulse Rate 100 H 96 H 102 H Pulse Rate [ From Monitor] Respiratory 15 12 13 Rate Blood Pressure 113/75 113/70 112/78 O2 Sat by Pulse 100 100 100 Oximetry 08/17/19 08/17/19 08/17/19 02:30 02:45 03:00 Temperature Pulse Rate 105 H 100 H 101 H Pulse Rate [ From Monitor] Respiratory 13 14 13 Rate Blood Pressure 107/73 115/69 112/68 O2 Sat by Pulse 100 100 100 Oximetry 08/17/19 08/17/19 08/17/19 03:15 03:25 03:30 Temperature 97.1 F L Pulse Rate 96 H 103 H Pulse Rate [ From Monitor] Respiratory 10 L 17 Rate Blood Pressure 104/69 114/78 O2 Sat by Pulse 100 100 Oximetry 08/17/19 08/17/19 08/17/19 03:45 04:00 04:15 Temperature Pulse Rate 100 H 97 H 102 H Pulse Rate [ 88 From Monitor] Respiratory 11 L 13 12 Rate Blood Pressure 117/72 113/68 108/73 O2 Sat by Pulse 100 100 100 Oximetry 08/17/19 08/17/19 08/17/19 04:30 04:45 05:01 Temperature Pulse Rate 102 H 101 H 105 H Pulse Rate [ From Monitor] Respiratory 13 14 15 Rate Blood Pressure 113/72 123/74 121/65 O2 Sat by Pulse 100 100 100 Oximetry 08/17/19 08/17/19 08/17/19 05:15 05:30 05:45 Temperature Pulse Rate 99 H 108 H 108 H Pulse Rate [ From Monitor] Respiratory 16 14 15 Rate Blood Pressure 114/69 105/69 114/64 O2 Sat by Pulse 79 L 100 100 Oximetry 08/17/19 08/17/19 08/17/19 06:00 06:15 06:30 Temperature Pulse Rate 98 H 94 H 90 Pulse Rate [ From Monitor] Respiratory 11 L 8 L 8 L Rate Blood Pressure 106/55 95/52 103/54 O2 Sat by Pulse 100 100 100 Oximetry 08/17/19 08/17/19 08/17/19 06:45 07:00 07:15 Temperature Pulse Rate 92 H 96 H 94 H Pulse Rate [ From Monitor] Respiratory 8 L 10 L 7 L Rate Blood Pressure 96/58 99/61 99/55 O2 Sat by Pulse 100 100 100 Oximetry 08/17/19 08/17/19 08/17/19 07:30 07:45 08:00 Temperature 97.2 F L Pulse Rate 96 H 99 H 86 Pulse Rate [ 96 H From Monitor] Respiratory 8 L 9 L 9 L Rate Blood Pressure 89/56 102/59 95/57 O2 Sat by Pulse 100 99 99 Oximetry 08/17/19 08/17/19 08/17/19 08:15 08:30 08:45 Temperature Pulse Rate 95 H 96 H 103 H Pulse Rate [ From Monitor] Respiratory 9 L 9 L 12 Rate Blood Pressure 94/65 99/70 105/68 O2 Sat by Pulse 99 99 100 Oximetry 08/17/19 08/17/19 08/17/19 09:00 09:15 09:24 Temperature Pulse Rate 104 H 103 H Pulse Rate [ From Monitor] Respiratory 14 14 Rate Blood Pressure 108/68 114/66 O2 Sat by Pulse 100 100 100 Oximetry 08/17/19 08/17/19 08/17/19 09:30 09:45 10:00 Temperature Pulse Rate 105 H 103 H 105 H Pulse Rate [ From Monitor] Respiratory 15 16 14 Rate Blood Pressure 117/64 104/65 103/67 O2 Sat by Pulse 100 100 100 Oximetry 08/17/19 08/17/19 08/17/19 10:15 10:30 10:45 Temperature Pulse Rate 110 H 105 H 103 H Pulse Rate [ From Monitor] Respiratory 16 15 15 Rate Blood Pressure 102/64 105/69 100/56 O2 Sat by Pulse 100 100 100 Oximetry 08/17/19 08/17/19 08/17/19 11:00 11:15 11:30 Temperature Pulse Rate 101 H 101 H 106 H Pulse Rate [ From Monitor] Respiratory 13 13 13 Rate Blood Pressure 103/62 101/54 112/55 O2 Sat by Pulse 99 100 100 Oximetry 08/17/19 08/17/19 08/17/19 11:45 12:00 12:15 Temperature 97.1 F L Pulse Rate 110 H 107 H 102 H Pulse Rate [ From Monitor] Respiratory 15 14 14 Rate Blood Pressure 102/60 111/60 117/60 O2 Sat by Pulse 100 100 100 Oximetry 08/17/19 08/17/19 08/17/19 12:31 12:45 13:00 Temperature Pulse Rate 108 H 103 H 104 H Pulse Rate [ From Monitor] Respiratory 16 16 13 Rate Blood Pressure 95/51 99/69 94/55 O2 Sat by Pulse 100 100 100 Oximetry - Labs CBC & Chem 7: 08/17/19 06:27 08/17/19 06:27 Labs: Abnormal lab results 08/15/19 08/17/19 08/17/19 Range/Units 17:46 00:04 06:27 RBC 2.74 L (3.65-5.03) M/mm3 Hgb 8.4 L (11.8-15.2) gm/dl Hct 24.8 L (35.5-45.6) % RDW 23.8 H (13.2-15.2) % Plt Count 23 L (140-440) K/mm3 Seg Neutrophils % 83.7 H (40.0-70.0) % Seg Neuts % (Manual) 81.0 H (40.0-70.0) % Lymphocytes # (Manual) 1.1 L (1.2-5.4) K/mm3 Carbon Dioxide (22-30) mmol/L BUN (9-20) mg/dL Creatinine (0.8-1.5) mg/dL POC Glucose 68 L 148 H (70-105) Calcium (8.4-10.2) mg/dL Magnesium (1.7-2.3) mg/dL Total Bilirubin (0.1-1.2) mg/dL Total Protein (6.3-8.2) g/dL 08/17/19 Range/Units 06:27 RBC (3.65-5.03) M/mm3 Hgb (11.8-15.2) gm/dl Hct (35.5-45.6) % RDW (13.2-15.2) % Plt Count (140-440) K/mm3 Seg Neutrophils % (40.0-70.0) % Seg Neuts % (Manual) (40.0-70.0) % Lymphocytes # (Manual) (1.2-5.4) K/mm3 Carbon Dioxide 16 L (22-30) mmol/L BUN 66 H (9-20) mg/dL Creatinine 3.9 H (0.8-1.5) mg/dL POC Glucose (70-105) Calcium 7.3 L (8.4-10.2) mg/dL Magnesium 1.60 L (1.7-2.3) mg/dL Total Bilirubin 3.70 H (0.1-1.2) mg/dL Total Protein 5.9 L (6.3-8.2) g/dL Medications & Allergies - Medications Allergies/Adverse Reactions: Allergies Unable to Assess Allergy (Verified 07/04/19 05:14) ams Home Medications: Home Medications Medication Instructions Recorded Confirmed Last Taken Type Lactulose [Cephulac] 20 gm PO QDAY #30 oral.liqd 07/11/19 08/11/19 Unknown Rx Pantoprazole [Protonix TAB] 40 mg PO BID #60 tablet 07/11/19 08/11/19 Unknown Rx Rifaximin [Xifaxan] 550 mg PO BID tablet 07/11/19 08/11/19 Unknown Rx Sodium Bicarbonate 1,300 mg PO TID tablet 07/11/19 08/11/19 Unknown Rx oxyCODONE /ACETAMINOPHEN [Percocet 1 tab PO Q6H PRN #7 tablet 07/11/19 08/11/19 Unknown Rx 5/325 mg] Active Medications: Generic Name Dose Route Start Last Admin Trade Name Freq PRN Reason Stop Dose Admin Lipase/Protease/Amylase 1 each 08/15/19 14:03 Pancreaze 10,500 Unit FEEDTUBE PRN PRN For Clogged Feeding Tube Dextrose 0 ml 08/11/19 23:00 12/06/19 18:37 D50w (25gm) Syringe IV 50 ml Q30MIN PRN Administration Hypoglycemia Protocol Norepinephrine 4 mg in 250 mls @ 7.5 mls/hr 08/11/19 22:00 08/17/19 13:26 Levophed Drip 4 Mg/Ns 250 Ml IV 0 mcg/min TITR FORTINO 0 mls/hr Titration Protocol 2 MCG/MIN Vasopressin 20 unit/ Sodium 101 mls @ 9.09 mls/hr 08/12/19 11:00 08/16/19 11:16 Chloride IV 0 units/min TITR FORTINO 0 mls/hr Titration Protocol 0.03 UNITS/MIN MEROPENEM/NS 1 GRAM/100 ML 1 gram in 100 mls @ 100 mls/hr 08/12/19 14:30 08/17/19 09:55 Merrem/Ns 1 Gram/100 Ml IV 100 mls/hr Q24HR FORTINO Administration Protocol Daptomycin 500 mg/ Sodium 100 mls @ 200 mls/hr 08/15/19 15:00 08/15/19 16:57 Chloride IV 200 mls/hr Q48H FORTINO Administration Protocol Sodium Bicarbonate 150 meq/ 1,150 mls @ 50 mls/hr 08/15/19 17:00 08/17/19 12:16 Dextrose IV 50 mls/hr DIRECT FORTINO Administration Lactulose 20 gm 08/17/19 13:28 Cephulac PO Q4H PRN Constipation Lansoprazole 30 mg 08/13/19 10:00 08/17/19 09:54 Prevacid Solutab FEEDTUBE 30 mg BID FORTINO Administration Midodrine 10 mg 08/17/19 16:00 Proamatine PO TID@0800,1200,1600 FORTINO Ondansetron HCl 4 mg 08/11/19 23:13 Zofran IV Q8H PRN Nausea And Vomiting Rifaximin 550 mg 08/13/19 10:00 08/17/19 09:54 Xifaxan PO 550 mg BID FORTINO Administration Simple Syrup 15 ml 08/15/19 14:03 Simple Syrup FEEDTUBE PRN PRN Hypoglycemia Simple Syrup 30 ml 08/15/19 14:03 Simple Syrup FEEDTUBE PRN PRN Hypoglycemia Sodium Bicarbonate 1,300 mg 08/13/19 14:00 08/17/19 13:17 Sodium Bicarbonate PO 1,300 mg TID FORTINO Administration Sodium Bicarbonate 325 mg 08/15/19 14:03 Sodium Bicarbonate FEEDTUBE PRN PRN For Clogged Feeding Tube Sodium Chloride 10 ml 08/12/19 10:00 08/17/19 09:55 Sodium Chloride Flush Syringe 10 Ml IV 10 ml BID FORTINO Administration Sodium Chloride 10 ml 08/11/19 23:13 08/13/19 21:54 Sodium Chloride Flush Syringe 10 Ml IV 10 ml PRN PRN Administration LINE FLUSH
[2019-08-17] MEDS ORDERED: SODIUM BICARBONATE 325 MG TAB FEEDTUBE PRN (13:33)
[2019-08-17] MEDS: MIDODRINE 5 MG TAB PO SCH (15:10)
[2019-08-17] MEDS ORDERED: PHYTONADIONE(ADULT ONLY) 10 MG in SODIUM CHLORIDE 0.9% 50 ML IV ONE (15:47)
[2019-08-17] MEDS ORDERED: SODIUM CHLORIDE 0.9% 500 ML 500 ML IV ONE ×3 (15:48→17:44)
--- NOTE | 2019-08-17 16:14 | Progress Note ---
Assessment and Plan Impression: * Oliguric HERRERA secondary to prerenal azotemia due to volume depletion vs ATN --SCr 1.4mg/dL at d/c on Jul 11, 2019 * Sepsis --Blood cx: NGTD * Encephalopathy * Metabolic acidosis secondary to lactic acidosis * Coagulopathy - INR 2.0 at admission * Thrombocytopenia * Liver cirrhosis * Atrial fibrillation/flutter * Anemia * Hx of alcohol abuse Plan: * Renal prognosis is guarded - SCr plateaued. May require renal replacement therapy in near future * Maintain hewitt catheter placement for strict I/O * Continue bicarb gtt for gentle hydration * Continue po bicarb * Replete lytes prn * Abx per ID * Pressors prn to maintain MAP>65 * Dose medications for renal function * Avoid potential nephrotoxins * Strict I/O Subjective Date of service: 08/17/19 Principal diagnosis: shock Interval history: No acute events overnight. Objective - Vital Signs Vital signs: Vital Signs - 12hr 08/17/19 08/17/19 08/17/19 04:15 04:30 04:45 Temperature Pulse Rate 102 H 102 H 101 H Pulse Rate [ From Monitor] Respiratory 12 13 14 Rate Blood Pressure 108/73 113/72 123/74 O2 Sat by Pulse 100 100 100 Oximetry 08/17/19 08/17/19 08/17/19 05:01 05:15 05:30 Temperature Pulse Rate 105 H 99 H 108 H Pulse Rate [ From Monitor] Respiratory 15 16 14 Rate Blood Pressure 121/65 114/69 105/69 O2 Sat by Pulse 100 79 L 100 Oximetry 08/17/19 08/17/19 08/17/19 05:45 06:00 06:15 Temperature Pulse Rate 108 H 98 H 94 H Pulse Rate [ From Monitor] Respiratory 15 11 L 8 L Rate Blood Pressure 114/64 106/55 95/52 O2 Sat by Pulse 100 100 100 Oximetry 08/17/19 08/17/19 08/17/19 06:30 06:45 07:00 Temperature Pulse Rate 90 92 H 96 H Pulse Rate [ From Monitor] Respiratory 8 L 8 L 10 L Rate Blood Pressure 103/54 96/58 99/61 O2 Sat by Pulse 100 100 100 Oximetry 08/17/19 08/17/19 08/17/19 07:15 07:30 07:45 Temperature Pulse Rate 94 H 96 H 99 H Pulse Rate [ From Monitor] Respiratory 7 L 8 L 9 L Rate Blood Pressure 99/55 89/56 102/59 O2 Sat by Pulse 100 100 99 Oximetry 08/17/19 08/17/19 08/17/19 08:00 08:15 08:30 Temperature 97.2 F L Pulse Rate 86 95 H 96 H Pulse Rate [ 96 H From Monitor] Respiratory 9 L 9 L 9 L Rate Blood Pressure 95/57 94/65 99/70 O2 Sat by Pulse 99 99 99 Oximetry 08/17/19 08/17/19 08/17/19 08:45 09:00 09:15 Temperature Pulse Rate 103 H 104 H 103 H Pulse Rate [ From Monitor] Respiratory 12 14 14 Rate Blood Pressure 105/68 108/68 114/66 O2 Sat by Pulse 100 100 100 Oximetry 08/17/19 08/17/19 08/17/19 09:24 09:30 09:45 Temperature Pulse Rate 105 H 103 H Pulse Rate [ From Monitor] Respiratory 15 16 Rate Blood Pressure 117/64 104/65 O2 Sat by Pulse 100 100 100 Oximetry 08/17/19 08/17/19 08/17/19 10:00 10:15 10:30 Temperature Pulse Rate 105 H 110 H 105 H Pulse Rate [ From Monitor] Respiratory 14 16 15 Rate Blood Pressure 103/67 102/64 105/69 O2 Sat by Pulse 100 100 100 Oximetry 08/17/19 08/17/19 08/17/19 10:45 11:00 11:15 Temperature Pulse Rate 103 H 101 H 101 H Pulse Rate [ From Monitor] Respiratory 15 13 13 Rate Blood Pressure 100/56 103/62 101/54 O2 Sat by Pulse 100 99 100 Oximetry 08/17/19 08/17/19 08/17/19 11:30 11:45 12:00 Temperature 97.1 F L Pulse Rate 106 H 110 H 102 H Pulse Rate [ 102 H From Monitor] Respiratory 13 15 10 L Rate Blood Pressure 112/55 102/60 111/60 O2 Sat by Pulse 100 100 100 Oximetry 08/17/19 08/17/19 08/17/19 12:15 12:31 12:45 Temperature Pulse Rate 102 H 108 H 103 H Pulse Rate [ From Monitor] Respiratory 14 16 16 Rate Blood Pressure 117/60 95/51 99/69 O2 Sat by Pulse 100 100 100 Oximetry 08/17/19 08/17/19 08/17/19 13:00 13:15 13:30 Temperature Pulse Rate 104 H 102 H 108 H Pulse Rate [ From Monitor] Respiratory 13 14 15 Rate Blood Pressure 94/55 101/63 110/58 O2 Sat by Pulse 100 100 100 Oximetry 08/17/19 08/17/19 08/17/19 13:45 14:00 14:15 Temperature Pulse Rate 105 H 102 H 101 H Pulse Rate [ From Monitor] Respiratory 17 15 13 Rate Blood Pressure 106/61 97/54 96/54 O2 Sat by Pulse 100 100 100 Oximetry 08/17/19 08/17/19 08/17/19 14:30 14:45 15:00 Temperature Pulse Rate 102 H 105 H 102 H Pulse Rate [ From Monitor] Respiratory 14 19 13 Rate Blood Pressure 104/55 96/55 90/51 O2 Sat by Pulse 100 100 100 Oximetry - General Appearance General appearance: well-developed, well-nourished, chronically ill EENT: ATNC Respiratory: Present: Decreased Breath Sounds Cardiology: regular, S1S2 Gastrointestinal: no tenderness, distended Neurologic: other (awake, slow to respond to questions) Musculoskeletal: other (2+ edema) Psychiatric: cooperative - Lab 08/17/19 06:27 08/17/19 06:27 Most recent lab results Calcium 7.3 mg/dL (8.4-10.2) L 08/17/19 06:27 Phosphorus 3.70 mg/dL (2.5-4.5) 08/17/19 06:27 Magnesium 1.60 mg/dL (1.7-2.3) L 08/17/19 06:27 Medications & Allergies - Medications Allergies/Adverse Reactions: Allergies Unable to Assess Allergy (Verified 07/04/19 05:14) ams Home Medications: Home Medications Medication Instructions Recorded Confirmed Last Taken Type Lactulose [Cephulac] 20 gm PO QDAY #30 oral.liqd 07/11/19 08/11/19 Unknown Rx Pantoprazole [Protonix TAB] 40 mg PO BID #60 tablet 07/11/19 08/11/19 Unknown Rx Rifaximin [Xifaxan] 550 mg PO BID tablet 07/11/19 08/11/19 Unknown Rx Sodium Bicarbonate 1,300 mg PO TID tablet 07/11/19 08/11/19 Unknown Rx oxyCODONE /ACETAMINOPHEN [Percocet 1 tab PO Q6H PRN #7 tablet 07/11/19 08/11/19 Unknown Rx 5/325 mg] Active Medications: Generic Name Dose Route Start Last Admin Trade Name Freq PRN Reason Stop Dose Admin Lipase/Protease/Amylase 1 each 08/15/19 14:03 Pancreaze 10,500 Unit FEEDTUBE PRN PRN For Clogged Feeding Tube Dextrose 0 ml 08/11/19 23:00 08/15/19 18:37 D50w (25gm) Syringe IV 50 ml Q30MIN PRN Administration Hypoglycemia Protocol Norepinephrine 4 mg in 250 mls @ 7.5 mls/hr 08/11/19 22:00 08/17/19 13:26 Levophed Drip 4 Mg/Ns 250 Ml IV 0 mcg/min TITR FORTINO 0 mls/hr Titration Protocol 2 MCG/MIN Vasopressin 20 unit/ Sodium 101 mls @ 9.09 mls/hr 08/12/19 11:00 08/16/19 11:16 Chloride IV 0 units/min TITR FORTINO 0 mls/hr Titration Protocol 0.03 UNITS/MIN MEROPENEM/NS 1 GRAM/100 ML 1 gram in 100 mls @ 100 mls/hr 08/12/19 14:30 08/17/19 09:55 Merrem/Ns 1 Gram/100 Ml IV 100 mls/hr Q24HR FORTINO Administration Protocol Daptomycin 500 mg/ Sodium 100 mls @ 200 mls/hr 08/15/19 15:00 08/17/19 15:11 Chloride IV 200 mls/hr Q48H FORTINO Administration Protocol Sodium Bicarbonate 150 meq/ 1,150 mls @ 50 mls/hr 08/15/19 17:00 08/17/19 12:16 Dextrose IV 50 mls/hr DIRECT FORTINO Administration Phytonadione 10 mg/ Sodium 51 mls @ 100 mls/hr 08/17/19 15:47 08/17/19 16:13 Chloride IV 08/17/19 16:17 100 mls/hr ONCE ONE Administration Lactulose 20 gm 08/17/19 13:28 Cephulac PO Q4H PRN Constipation Lansoprazole 30 mg 08/13/19 10:00 08/17/19 09:54 Prevacid Solutab FEEDTUBE 30 mg BID FORTINO Administration Midodrine 10 mg 08/17/19 16:00 08/17/19 15:10 Proamatine PO 10 mg TID@0800,1200,1600 FORTINO Administration Ondansetron HCl 4 mg 08/11/19 23:13 Zofran IV Q8H PRN Nausea And Vomiting Rifaximin 550 mg 08/13/19 10:00 08/17/19 09:54 Xifaxan PO 550 mg BID FORTINO Administration Simple Syrup 15 ml 08/15/19 14:03 Simple Syrup FEEDTUBE PRN PRN Hypoglycemia Simple Syrup 30 ml 08/15/19 14:03 Simple Syrup FEEDTUBE PRN PRN Hypoglycemia Sodium Bicarbonate 1,300 mg 08/13/19 14:00 08/17/19 13:17 Sodium Bicarbonate PO 1,300 mg TID FORTINO Administration Sodium Bicarbonate 325 mg 08/15/19 14:03 Sodium Bicarbonate FEEDTUBE PRN PRN For Clogged Feeding Tube Sodium Bicarbonate 325 mg 08/17/19 13:33 Sodium Bicarbonate FEEDTUBE PRN PRN For Clogged Feeding Tube Sodium Chloride 10 ml 08/12/19 10:00 08/17/19 09:55 Sodium Chloride Flush Syringe 10 Ml IV 10 ml BID FORTINO Administration Sodium Chloride 10 ml 08/11/19 23:13 08/13/19 21:54 Sodium Chloride Flush Syringe 10 Ml IV 10 ml PRN PRN Administration LINE FLUSH
[2019-08-18 05:06] LABS: Hematocrit 27.4 % (35.5-45.6); Hemoglobin 9.2 gm/dl (11.8-15.2); Mean Corpuscular HGB Conc 33 % (32-34); Mean Corpuscular Volume 91 fl (84-94); Red Blood Count 3.01 M/mm3 (3.65-5.03)
[2019-08-18 05:07] LABS: Red Cell Distribution Width 23.4 % (13.2-15.2)
[2019-08-18 05:08] LABS: Platelet Count 19 K/mm3 (140-440)
[2019-08-18 05:31] LABS: Alanine Aminotransferase 8 units/L (7-56); Albumin 3.4 g/dL (3.9-5); BUN/Creatinine Ratio 18; Blood Urea Nitrogen 72 mg/dL (9-20); Calcium 7.5 mg/dL (8.4-10.2); Hemolysis Index 5; Iron 52 ug/dL (49-181)
[2019-08-18 05:52] LABS: Total Iron Binding Capacity 39 mcg/dL (250-450)
[2019-08-18 05:58] LABS: Anisocytosis 2+; Basophils % (Manual) 0 % (0.0-1.8); Burr Cells 1+; Total Cells Counted 100
[2019-08-18 05:59] LABS: Target Cells Few
[2019-08-18 06:01] LABS: Platelet Estimate Appears Decreased; Poikilocytosis 2+; Tear Drop Cells Few
--- NOTE | 2019-08-18 08:00 | Progress Note ---
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 06/2019 Cardiology evaluation in the past, patient did not have time no intervention at that time Consider cardiology evaluation if needed --Sepsis; secondary to UTI; Urine cultures negative to date, patient has history of VRE Continue daptomycin and meropenem per ID contact isolation --Severe Thrombocytopenia, cirrhosis liver/sepsis Closely monitor, no evidence of bleeding Hematology consult, platelet transfusion if needed --Anemia; S/P 2 units of PRBC transfusion hemoglobin level improved, monitor closely --Acute Renal Failure; creatinine 3.9 today likely vasomotor nephropathy vs ATN nephrology following, avoid nephrotoxins --Acute Hepatic Encephalopathy s/p lactulose,ammonia level trending down --Abnormal cadiac enzymes/NSTEMI type II Continue current management supportive care --Hypoglycemia, on D5; improved --Anemia of chronic disease, monitor h/h Transfuse as needed --Hyponatremia, resolved Monitor electrolytes --Hypokalemia : Replace per protocol --History of cirrhosis of liver: monitor LFT Supportive care --Coagulopathy : Due to cirrhosis liver No evidence of bleeding --Severe protein calorie malnutrition, supportive care Pipelines Supervisor following --Multiple decubitus ulcers of different stages wound care.Surgical debridement as needed. --DVT prophalaxis with SCD Patient is critically ill, with very poor prognosis Full CODE STATUS, very poor prognosis The high probability of a clinically significant, sudden or life threatening deterioration of the [multiple] system(s) required my full and direct attention, intervention and personal management. The aggregate critical care time was [33] minutes. This time is in addition to time spent performing reported procedures but includes the following: [x] Data Review and interpretation [x] Patient assessment and monitoring of vital signs [x] Documentation [x] Medication orders and management History Interval history: Patient seen and examined this morning in ICU medical records reviewed Patient remains critically, more up-to-date Off Levothroid and vasopressin Continue midodrine Vital signs noted Hospitalist Physical - Constitutional Vitals: Temp Pulse Resp BP Pulse Ox 96.2 F L 97 H 15 116/81 87 12/09/19 04:00 08/18/19 06:00 08/18/19 06:00 08/18/19 06:00 08/17/19 20:59 General appearance: Present: mild distress, cachectic, disheveled, other (Critically ill looking) - EENT Eyes: Present: PERRL, EOM intact - Neck Neck: Present: supple - Respiratory Respiratory effort: normal Respiratory: bilateral: diminished, rales, negative: rhonchi, wheezing - Cardiovascular Rhythm: regular Heart Sounds: Present: S1 & S2 - Extremities Extremities: no ischemia Extremity abnormal: edema - Abdominal General gastrointestinal: soft, non-tender, non-distended, normal bowel sounds - Integumentary Integumentary: Present: clear, warm - Psychiatric Psychiatric: other (noncommunicative) - Neurologic Neurologic: other (more alert today noncommunicative) Results - Labs CBC & Chem 7: 08/18/19 04:45 08/18/19 04:45 Labs: Laboratory Last Values WBC 9.7 K/mm3 (4.5-11.0) 08/18/19 04:45 RBC 3.01 M/mm3 (3.65-5.03) L 08/18/19 04:45 Hgb 9.2 gm/dl (11.8-15.2) L 08/18/19 04:45 Hct 27.4 % (35.5-45.6) L 08/18/19 04:45 MCV 91 fl (84-94) 08/18/19 04:45 MCH 30 pg (28-32) 08/18/19 04:45 MCHC 33 % (32-34) 08/18/19 04:45 RDW 23.4 % (13.2-15.2) H 08/18/19 04:45 Plt Count 19 K/mm3 (140-440) L* 08/18/19 04:45 [place] % (Auto) 2.0 % (0.0-7.3) 08/17/19 06:27 Eos % (Auto) 0.6 % (0.0-4.3) 08/17/19 06:27 [place] # 0.1 K/mm3 (0.0-0.8) 08/17/19 06:27 Eos # 0.0 K/mm3 (0.0-0.4) 08/17/19 06:27 Baso # 0.0 K/mm3 (0.0-0.1) 08/17/19 06:27 Add Manual Diff Complete 08/18/19 04:45 Total Counted 100 08/18/19 04:45 Seg Neutrophils % 83.7 % (40.0-70.0) H 08/17/19 06:27 Seg Neuts % (Manual) 85.0 % (40.0-70.0) H 08/18/19 04:45 Band Neutrophils % 0 % 08/18/19 04:45 Lymphocytes % (Manual) 13.0 % (13.4-35.0) L 08/18/19 04:45 Reactive Lymphs % (Man) 0 % 08/18/19 04:45 Monocytes % (Manual) 1.0 % (0.0-7.3) 08/18/19 04:45 Eosinophils % (Manual) 1.0 % (0.0-4.3) 08/18/19 04:45 Basophils % (Manual) 0 % (0.0-1.8) 08/18/19 04:45 Metamyelocytes % 0 % 08/18/19 04:45 Myelocytes % 0 % 08/18/19 04:45 Promyelocytes % 0 % 08/18/19 04:45 Blast Cells % 0 % 08/18/19 04:45 Nucleated RBC % Not Reportable 08/18/19 04:45 Seg Neutrophils # 6.0 K/mm3 (1.8-7.7) 08/17/19 06:27 Seg Neutrophils # Man 8.2 K/mm3 (1.8-7.7) H 08/18/19 04:45 Band Neutrophils # 0.0 K/mm3 08/18/19 04:45 Lymphocytes # (Manual) 1.3 K/mm3 (1.2-5.4) 08/18/19 04:45 Abs React Lymphs (Man) 0.0 K/mm3 08/18/19 04:45 Monocytes # (Manual) 0.1 K/mm3 (0.0-0.8) 08/18/19 04:45 Eosinophils # (Manual) 0.1 K/mm3 (0.0-0.4) 08/18/19 04:45 Basophils # (Manual) 0.0 K/mm3 (0.0-0.1) 08/18/19 04:45 Metamyelocytes # 0.0 K/mm3 08/18/19 04:45 Myelocytes # 0.0 K/mm3 08/18/19 04:45 Promyelocytes # 0.0 K/mm3 08/18/19 04:45 Blast Cells # 0.0 K/mm3 08/18/19 04:45 WBC Morphology Not Reportable 08/18/19 04:45 Hypersegmented Neuts Not Reportable 08/18/19 04:45 Hyposegmented Neuts Not Reportable 08/18/19 04:45 Hypogranular Neuts Not Reportable 08/18/19 04:45 Smudge Cells Not Reportable 08/18/19 04:45 Toxic Granulation Not Reportable 08/18/19 04:45 Toxic Vacuolation Not Reportable 08/18/19 04:45 Dohle Bodies Not Reportable 08/18/19 04:45 Pelger-Huet Anomaly Not Reportable 08/18/19 04:45 Pastor Rods Not Reportable 08/18/19 04:45 Platelet Estimate Appears decreased 08/18/19 04:45 Clumped Platelets Not Reportable 08/18/19 04:45 Plt Clumps, EDTA Not Reportable 08/18/19 04:45 Large Platelets Not Reportable 08/18/19 04:45 Giant Platelets Not Reportable 08/18/19 04:45 Platelet Satelliting Not Reportable 08/18/19 04:45 Plt Morphology Comment Not Reportable 08/18/19 04:45 RBC Morphology Not Reportable 08/18/19 04:45 Dimorphic RBCs Not Reportable 08/18/19 04:45 Polychromasia Not Reportable 08/18/19 04:45 Hypochromasia Not Reportable 08/18/19 04:45 Poikilocytosis 2+ 08/18/19 04:45 Anisocytosis 2+ 08/18/19 04:45 Microcytosis Not Reportable 08/18/19 04:45 Macrocytosis Not Reportable 08/18/19 04:45 Spherocytes Not Reportable 08/18/19 04:45 Pappenheimer Bodies Not Reportable 08/18/19 04:45 Sickle Cells Not Reportable 08/18/19 04:45 Target Cells Few 08/18/19 04:45 Tear Drop Cells Few 08/18/19 04:45 Ovalocytes Not Reportable 08/18/19 04:45 Helmet Cells Not Reportable 08/18/19 04:45 [place] Bodies Not Reportable 08/18/19 04:45 [place] Rings Not Reportable 08/18/19 04:45 Radha Cells 1+ 08/18/19 04:45 Bite Cells Not Reportable 08/18/19 04:45 Crenated Cell Not Reportable 08/18/19 04:45 Elliptocytes Few 08/18/19 04:45 Acanthocytes (Spur) Not Reportable 08/18/19 04:45 Rouleaux Not Reportable 08/18/19 04:45 Hemoglobin C Crystals Not Reportable 08/18/19 04:45 Schistocytes Not Reportable 08/18/19 04:45 Malaria parasites Not Reportable 08/18/19 04:45 Ranjith Bodies Not Reportable 08/18/19 04:45 Hem Pathologist Commnt No 08/18/19 04:45 PT 25.2 Sec. (12.2-14.9) H 08/13/19 13:01 INR 2.34 (0.87-1.13) H 08/13/19 13:01 APTT 55.3 Sec. (24.2-36.6) H 08/12/19 05:10 Fibrinogen 114 mg/dl (211-480) L 08/18/19 04:45 POC ABG pH 7.332 (7.35-7.45) L 08/12/19 10:37 POC ABG pCO2 28.3 (35-45) L 08/12/19 10:37 POC ABG pO2 103 (80-105) 08/12/19 10:37 POC ABG HCO3 15.0 (22-26 mml/L) 08/12/19 10:37 POC ABG Total CO2 16 (23-27mmol/L) 08/12/19 10:37 POC ABG O2 Sat 98 08/12/19 10:37 POC ABG Base Excess -11 ((-2) - (+3)mmol/L) 08/12/19 10:37 FiO2 40 % 08/12/19 10:37 Sodium 137 mmol/L (137-145) 08/18/19 04:45 Potassium 3.5 mmol/L (3.6-5.0) L 08/18/19 04:45 Chloride 100.6 mmol/L (98-107) 08/18/19 04:45 Carbon Dioxide 15 mmol/L (22-30) L 08/18/19 04:45 Anion Gap 25 mmol/L 08/18/19 04:45 BUN 72 mg/dL (9-20) H 08/18/19 04:45 Creatinine 3.9 mg/dL (0.8-1.5) H 08/18/19 04:45 Estimated GFR 15 ml/min 08/18/19 04:45 BUN/Creatinine Ratio 18 % 08/18/19 04:45 Glucose 71 mg/dL (75-100) L 08/18/19 04:45 POC Glucose 70 (70-105) 08/18/19 07:07 Lactic Acid 2.90 mmol/L (0.7-2.0) H* 08/12/19 06:15 Calcium 7.5 mg/dL (8.4-10.2) L 08/18/19 04:45 Phosphorus 3.70 mg/dL (2.5-4.5) 08/17/19 06:27 Magnesium 1.60 mg/dL (1.7-2.3) L 08/17/19 06:27 Iron 52 ug/dL (49-181) 08/18/19 04:45 TIBC 39 mcg/dL (250-450) L 08/18/19 04:45 Total Bilirubin 5.30 mg/dL (0.1-1.2) H 08/18/19 04:45 Direct Bilirubin 2.7 mg/dL (0-0.2) H 08/14/19 Unknown Indirect Bilirubin 1.0 mg/dL 08/14/19 Unknown AST 21 units/L (5-40) 08/18/19 04:45 ALT 8 units/L (7-56) 08/18/19 04:45 Alkaline Phosphatase 94 units/L (35-129) 08/18/19 04:45 Ammonia 48.0 umol/L (25-60) 08/17/19 06:27 Total Creatine Kinase 44 units/L (55-170) L 08/12/19 05:10 CK-MB (CK-2) 8.3 ng/mL (0.0-4.0) H 08/12/19 05:10 CK-MB (CK-2) Rel Index 18.8 (0-4) H 08/12/19 05:10 Troponin T 0.077 ng/mL (0.00-0.029) H 08/12/19 05:10 NT-Pro-B Natriuret Pep 98854 pg/mL (0-900) H 08/18/19 04:45 Total Protein 5.2 g/dL (6.3-8.2) L 08/18/19 04:45 Albumin 3.4 g/dL (3.9-5) L 08/18/19 04:45 Albumin/Globulin Ratio 1.9 % 08/18/19 04:45 Triglycerides 93 mg/dL (2-149) 08/11/19 20:11 Cholesterol 168 mg/dL (50-199) 08/11/19 20:11 LDL Cholesterol Direct 140 mg/dL (50-130) H 08/11/19 20:11 HDL Cholesterol 14 mg/dL (40-59) L 08/11/19 20:11 Cholesterol/HDL Ratio 12.00 % 08/11/19 20:11 Folate 6.49 ng/mL (7.3-26.0) L 08/18/19 04:45 TSH 2.280 mlU/mL (0.270-4.200) 08/11/19 20:12 Urine Color Vee (Yellow) 08/12/19 02:42 Urine Turbidity Cloudy (Clear) 08/12/19 02:42 Urine pH 6.0 (5.0-7.0) 08/12/19 02:42 Ur Specific [place] 1.010 (1.003-1.030) 08/12/19 02:42 Urine Protein 100 mg/dl mg/dL (Negative) 08/12/19 02:42 Urine Glucose (UA) Neg mg/dL (Negative) 08/12/19 02:42 Urine Ketones Neg mg/dL (Negative) 08/12/19 02:42 Urine Blood Mod (Negative) 08/12/19 02:42 Urine Nitrite Neg (Negative) 08/12/19 02:42 Urine Bilirubin Neg (Negative) 08/12/19 02:42 Urine Urobilinogen < 2.0 mg/dL (<2.0) 08/12/19 02:42 Ur Leukocyte Esterase Lg (Negative) 08/12/19 02:42 Urine WBC (Auto) > 182.0 /HPF (0.0-6.0) H 08/12/19 02:42 Urine RBC (Auto) 103.0 /HPF (0.0-6.0) 08/12/19 02:42 U Epithel Cells (Auto) 5.0 /HPF (0-13.0) 08/12/19 02:42 Urine Bacteria (Auto) 2+ /HPF (Negative) 08/12/19 02:42 Urine WBC Clumps 3+ /HPF 08/12/19 02:42 Urine Mucus 3+ /HPF 08/12/19 02:42 Random Vancomycin 11.1 ug/mL (0-40.0) 08/14/19 Unknown Salicylates < 0.3 mg/dL (2.8-20.0) L 08/11/19 20:11 Acetaminophen < 5.0 ug/mL (10.0-30.0) L 08/11/19 20:11 Plasma/Serum Alcohol < 0.01 % (0-0.07) 08/11/19 20:14 Hepatitis A IgM Ab Non-reactive (NonReactive) 08/13/19 00:30 Hep Bs Antigen Non-reactive (Negative) 08/13/19 00:30 Hep B Core IgM Ab Non-reactive (NonReactive) 08/13/19 00:30 Hepatitis C Antibody Non-reactive (NonReactive) 08/13/19 00:30 Blood Type A NEGATIVE 08/17/19 16:02 Blood Type A NEGATIVE 08/17/19 16:02 Antibody Screen Negative 08/17/19 16:02 Antibody Screen Negative 08/17/19 16:02 Crossmatch See Detail 08/14/19 20:30 Active Medications - Current Medications Current Medications: Generic Name Dose Route Start Last Admin Trade Name Freq PRN Reason Stop Dose Admin Lipase/Protease/Amylase 1 each 08/15/19 14:03 Pancreaze 10,500 Unit FEEDTUBE PRN PRN For Clogged Feeding Tube Dextrose 0 ml 08/11/19 23:00 08/15/19 18:37 D50w (25gm) Syringe IV 50 ml Q30MIN PRN Administration Hypoglycemia Protocol Norepinephrine 4 mg in 250 mls @ 7.5 mls/hr 08/11/19 22:00 12/08/19 13:26 Levophed Drip 4 Mg/Ns 250 Ml IV 0 mcg/min TITR FORTINO 0 mls/hr Titration Protocol 2 MCG/MIN Vasopressin 20 unit/ Sodium 101 mls @ 9.09 mls/hr 08/12/19 11:00 08/16/19 11:16 Chloride IV 0 units/min TITR FORTINO 0 mls/hr Titration Protocol 0.03 UNITS/MIN MEROPENEM/NS 1 GRAM/100 ML 1 gram in 100 mls @ 100 mls/hr 08/12/19 14:30 08/17/19 09:55 Merrem/Ns 1 Gram/100 Ml IV 100 mls/hr Q24HR FORTINO Administration Protocol Daptomycin 500 mg/ Sodium 100 mls @ 200 mls/hr 08/15/19 15:00 08/17/19 15:11 Chloride IV 200 mls/hr Q48H FORTINO Administration Protocol Sodium Bicarbonate 150 meq/ 1,150 mls @ 50 mls/hr 08/15/19 17:00 08/17/19 12:16 Dextrose IV 50 mls/hr DIRECT FORTINO Administration Lactulose 20 gm 08/17/19 13:28 Cephulac PO Q4H PRN Constipation Lansoprazole 30 mg 08/13/19 10:00 08/17/19 23:39 Prevacid Solutab FEEDTUBE 30 mg BID FORTINO Administration Midodrine 10 mg 08/17/19 16:00 08/17/19 15:10 Proamatine PO 10 mg TID@0800,1200,1600 FORTINO Administration Ondansetron HCl 4 mg 08/11/19 23:13 Zofran IV Q8H PRN Nausea And Vomiting Rifaximin 550 mg 08/13/19 10:00 08/17/19 23:39 Xifaxan PO 550 mg BID FORTINO Administration Simple Syrup 15 ml 08/15/19 14:03 Simple Syrup FEEDTUBE PRN PRN Hypoglycemia Simple Syrup 30 ml 08/15/19 14:03 Simple Syrup FEEDTUBE PRN PRN Hypoglycemia Sodium Bicarbonate 1,300 mg 08/13/19 14:00 08/17/19 23:39 Sodium Bicarbonate PO 1,300 mg TID FORTINO Administration Sodium Bicarbonate 325 mg 08/15/19 14:03 Sodium Bicarbonate FEEDTUBE PRN PRN For Clogged Feeding Tube Sodium Bicarbonate 325 mg 08/17/19 13:33 Sodium Bicarbonate FEEDTUBE PRN PRN For Clogged Feeding Tube Sodium Chloride 10 ml 08/12/19 10:00 08/17/19 09:55 Sodium Chloride Flush Syringe 10 Ml IV 10 ml BID FORTINO Administration Sodium Chloride 10 ml 08/11/19 23:13 08/13/19 21:54 Sodium Chloride Flush Syringe 10 Ml IV 10 ml PRN PRN Administration LINE FLUSH Nutrition/Malnutrition Assess - Dietary Evaluation Nutrition/Malnutrition Findings: Nutrition Notes Start: 08/12/19 10 :16 Freq: Status: Active Protocol: Document 08/15/19 13:30 DW (Rec: 08/15/19 14:38 DW [email or web address]) Co-Sign 08/15/19 13:30 LP Nutrition Notes Initial or Follow up Reassessment Current Diagnosis Acute Kidney Injury Other Pertinent Diagnosis Etoh dependence, cirrhosis, hepatic encephalopathy, 2+ edema, skin tears Current Diet NPO Labs/Tests K 3.2 BUN 60 Cr 4.0 Glu 125 Pertinent Medications Levophed Vasopressin Height 6 ft 2 in Weight 91.7 kg [place] Body Weight (kg) 86.36 BMI 25.9 Subjective/Other Information MD verbal consult for potential trickle feed if pt weaned from multiple pressors Burn Absent Trauma Absent Minimum of two criteria Yes Energy Intake (non-severe) <75% Estimated Energy Requirement >7 days Muscle Mass Mild Depletion (non-severe) Fluid Accumulation Mild (non-severe) #3 Nutrition Diagnosis Inadequate oral intake Diagnosis Progress(for reassessment Continues documentation) #2 Nutrition Diagnosis Malnutrition Diagnosis Progress(for reassessment Continues documentation) #1 Nutrition Diagnosis Increased nutrient needs ( specify in comment below) Diagnosis Progress(for reassessment Continues documentation) Is patient on ventilator? No Is Patient Ambulatory and/or Out of Bed No REE-([place]-confined to bed) 8.004 Calculation Used for Recommendations [place] Additional Notes PRO needs: 110-137g (1.2-1.5g/ kg) Fluid needs: Per MD Nutrition Intervention Change Diet Order: Trickle feed when medically able Nutrition Support: Osmolite 1.5 at 10ml/hr with 50ml water flush q4h Kcal 360 Protein (gm) 15 Fluid (mL) 182 Goal #1 Trickle feed when medically able Goal #2 trickle tolerance Goal #3 wound healing Anticipated Discharge Needs: Unable to Determine at This Time Follow-Up By: 08/18/19 Additional Comments Tricle feed start
--- NOTE | 2019-08-18 08:27 | Event Note ---
Date: 08/18/19 [id number]
[2019-08-18] MEDS ORDERED: POTASSIUM CHLORIDE 20 MEQ PACKET FEEDTUBE ONE (09:00)
[2019-08-18] MEDS ORDERED: FOLIC ACID/VIT B COMP W-C 1 MG (RENAL CAPS) PO SCH (10:00)
[2019-08-18] MEDS: RIFAXIMIN 550 MG TAB PO SCH (10:06)
[2019-08-18] MEDS: MEROPENEM/NS 1 GRAM/100 ML 1 GRAM/100 ML BAG IV SCH (10:06)
[2019-08-18] MEDS: SODIUM BICARBONATE 650 MG TAB PO SCH ×2 (10:07→13:22)
[2019-08-18] MEDS: MIDODRINE 5 MG TAB PO SCH ×2 (10:08→13:21)
[2019-08-18] MEDS: LANSOPRAZOLE 30 MG SOLUTAB FEEDTUBE SCH (10:11)
--- NOTE | 2019-08-18 11:32 | Progress Note ---
Assessment and Plan 74 y/o male admitted with altered mental state, hypotension, hypothermia and hypoglycemia. 1. Neuro: lactulose q4. Needs to have 2-3 BM's daily. 2. Stable on Venti mask at 50%. Increased overnight. Will wean back to 35%. Not able to wean off as he is a mouth breather. 3. BP better. Tolerating Midodrine 4. Strict I/O's, Cr stable. Will ask renal if hewitt can come out 5. Nutrition consult for feeds. Started Nepro yesterday. They can adjust as tolerated. 6. Renal function stable. Follow up any new renal recs. 7. Hold on paracentesis 8. Abx per ID. Will transfer to step down. off pressors for the last 48 hours. Subjective Date of service: 08/18/19 Principal diagnosis: shock Interval history: no acute events. More awake and alert today. Objective - Constitutional Vitals: Vital Signs - 12hr 08/17/19 08/17/19 08/18/19 23:30 23:45 00:00 Temperature 96.9 F L Pulse Rate 100 H 98 H 98 H Pulse Rate [ 100 H From Monitor] Respiratory 13 11 L 13 Rate Blood Pressure 121/76 116/70 123/71 O2 Sat by Pulse Oximetry 08/18/19 08/18/19 08/18/19 00:15 00:30 00:44 Temperature Pulse Rate 91 H 89 87 Pulse Rate [ From Monitor] Respiratory 9 L 10 L 17 Rate Blood Pressure 115/72 112/73 123/71 O2 Sat by Pulse Oximetry 08/18/19 08/18/19 08/18/19 00:45 01:00 01:15 Temperature Pulse Rate 89 102 H 97 H Pulse Rate [ From Monitor] Respiratory 13 15 12 Rate Blood Pressure 109/63 122/77 118/68 O2 Sat by Pulse Oximetry 08/18/19 08/18/19 08/18/19 01:30 01:45 02:00 Temperature 36.2 F L Pulse Rate 98 H 96 H 94 H Pulse Rate [ From Monitor] Respiratory 12 13 12 Rate Blood Pressure 115/74 119/73 121/73 O2 Sat by Pulse Oximetry 08/18/19 08/18/19 08/18/19 02:15 02:30 02:45 Temperature Pulse Rate 95 H 91 H 97 H Pulse Rate [ From Monitor] Respiratory 13 10 L 12 Rate Blood Pressure 107/68 119/70 113/68 O2 Sat by Pulse Oximetry 08/18/19 08/18/19 08/18/19 03:00 03:15 03:30 Temperature Pulse Rate 100 H 98 H 96 H Pulse Rate [ From Monitor] Respiratory 13 14 14 Rate Blood Pressure 109/70 115/78 120/77 O2 Sat by Pulse Oximetry 08/18/19 08/18/19 08/18/19 03:45 04:00 04:15 Temperature 96.2 F L Pulse Rate 94 H 98 H 94 H Pulse Rate [ 94 H From Monitor] Respiratory 12 11 L 10 L Rate Blood Pressure 122/72 125/75 120/73 O2 Sat by Pulse Oximetry 08/18/19 08/18/19 08/18/19 04:30 04:45 05:00 Temperature Pulse Rate 92 H 94 H 98 H Pulse Rate [ From Monitor] Respiratory 12 11 L 11 L Rate Blood Pressure 117/72 117/72 117/73 O2 Sat by Pulse Oximetry 08/18/19 08/18/19 08/18/19 05:11 05:15 05:30 Temperature Pulse Rate 95 H 96 H 90 Pulse Rate [ From Monitor] Respiratory 20 10 L 8 L Rate Blood Pressure 125/75 123/72 113/67 O2 Sat by Pulse Oximetry 08/18/19 08/18/19 08/18/19 05:45 06:00 06:15 Temperature Pulse Rate 95 H 97 H 100 H Pulse Rate [ From Monitor] Respiratory 9 L 15 13 Rate Blood Pressure 125/76 116/81 132/76 O2 Sat by Pulse Oximetry 08/18/19 08/18/19 08/18/19 06:31 06:45 07:00 Temperature Pulse Rate 103 H 108 H 95 H Pulse Rate [ From Monitor] Respiratory 13 17 14 Rate Blood Pressure 132/76 132/76 111/67 O2 Sat by Pulse 100 100 Oximetry 08/18/19 08/18/19 08/18/19 07:15 07:30 07:45 Temperature Pulse Rate 95 H 96 H 88 Pulse Rate [ From Monitor] Respiratory 14 9 L 8 L Rate Blood Pressure 121/76 110/67 110/67 O2 Sat by Pulse 100 100 100 Oximetry 08/18/19 08/18/19 08/18/19 08:00 08:06 08:15 Temperature Pulse Rate 96 H 97 H Pulse Rate [ From Monitor] Respiratory 12 22 Rate Blood Pressure 113/77 113/77 O2 Sat by Pulse 91 100 100 Oximetry 08/18/19 08:30 Temperature Pulse Rate 98 H Pulse Rate [ From Monitor] Respiratory 15 Rate Blood Pressure 113/60 O2 Sat by Pulse 100 Oximetry - Labs CBC & Chem 7: 08/18/19 04:45 08/18/19 04:45 Labs: Abnormal lab results 08/18/19 08/18/19 08/18/19 Range/Units 04:45 04:45 04:45 RBC 3.01 L (3.65-5.03) M/mm3 Hgb 9.2 L (11.8-15.2) gm/dl Hct 27.4 L (35.5-45.6) % RDW 23.4 H (13.2-15.2) % Plt Count 19 L* (140-440) K/mm3 Seg Neuts % (Manual) 85.0 H (40.0-70.0) % Lymphocytes % (Manual) 13.0 L (13.4-35.0) % Seg Neutrophils # Man 8.2 H (1.8-7.7) K/mm3 Fibrinogen (211-480) mg/dl Potassium 3.5 L (3.6-5.0) mmol/L Carbon Dioxide 15 L (22-30) mmol/L BUN 72 H (9-20) mg/dL Creatinine 3.9 H (0.8-1.5) mg/dL Glucose 71 L (75-100) mg/dL Calcium 7.5 L (8.4-10.2) mg/dL TIBC 39 L (250-450) mcg/dL Total Bilirubin 5.30 H (0.1-1.2) mg/dL NT-Pro-B Natriuret Pep 58422 H (0-900) pg/mL Total Protein 5.2 L (6.3-8.2) g/dL Albumin 3.4 L (3.9-5) g/dL Folate (7.3-26.0) ng/mL 08/18/19 08/18/19 Range/Units 04:45 04:45 RBC (3.65-5.03) M/mm3 Hgb (11.8-15.2) gm/dl Hct (35.5-45.6) % RDW (13.2-15.2) % Plt Count (140-440) K/mm3 Seg Neuts % (Manual) (40.0-70.0) % Lymphocytes % (Manual) (13.4-35.0) % Seg Neutrophils # Man (1.8-7.7) K/mm3 Fibrinogen 114 L (211-480) mg/dl Potassium (3.6-5.0) mmol/L Carbon Dioxide (22-30) mmol/L BUN (9-20) mg/dL Creatinine (0.8-1.5) mg/dL Glucose (75-100) mg/dL Calcium (8.4-10.2) mg/dL TIBC (250-450) mcg/dL Total Bilirubin (0.1-1.2) mg/dL NT-Pro-B Natriuret Pep (0-900) pg/mL Total Protein (6.3-8.2) g/dL Albumin (3.9-5) g/dL Folate 6.49 L (7.3-26.0) ng/mL Medications & Allergies - Medications Allergies/Adverse Reactions: Allergies Unable to Assess Allergy (Verified 07/04/19 05:14) ams Home Medications: Home Medications Medication Instructions Recorded Confirmed Last Taken Type Lactulose [Cephulac] 20 gm PO QDAY #30 oral.liqd 07/11/19 08/11/19 Unknown Rx Pantoprazole [Protonix TAB] 40 mg PO BID #60 tablet 07/11/19 08/11/19 Unknown Rx Rifaximin [Xifaxan] 550 mg PO BID tablet 07/11/19 08/11/19 Unknown Rx Sodium Bicarbonate 1,300 mg PO TID tablet 07/11/19 08/11/19 Unknown Rx oxyCODONE /ACETAMINOPHEN [Percocet 1 tab PO Q6H PRN #7 tablet 07/11/19 08/11/19 Unknown Rx 5/325 mg] Active Medications: Generic Name Dose Route Start Last Admin Trade Name Freq PRN Reason Stop Dose Admin Lipase/Protease/Amylase 1 each 08/15/19 14:03 Pancremaryam [place] 10,500 Unit FEEDTUBE PRN PRN For Clogged Feeding Tube Dextrose 0 ml 08/11/19 23:00 08/15/19 18:37 D50w (25gm) Syringe IV 50 ml Q30MIN PRN Administration Hypoglycemia Protocol Norepinephrine 4 mg in 250 mls @ 7.5 mls/hr 08/11/19 22:00 08/17/19 13:26 Levophed Drip 4 Mg/Ns 250 Ml IV 0 mcg/min TITR FORTINO 0 mls/hr Titration Protocol 2 MCG/MIN Vasopressin 20 unit/ Sodium 101 mls @ 9.09 mls/hr 08/12/19 11:00 08/16/19 11:16 Chloride IV 0 units/min TITR FORTINO 0 mls/hr Titration Protocol 0.03 UNITS/MIN MEROPENEM/NS 1 GRAM/100 ML 1 gram in 100 mls @ 100 mls/hr 08/12/19 14:30 08/18/19 10:06 Merrem/Ns 1 Gram/100 Ml IV 100 mls/hr Q24HR FORTINO Administration Protocol Daptomycin 500 mg/ Sodium 100 mls @ 200 mls/hr 08/15/19 15:00 08/17/19 15:11 Chloride IV 200 mls/hr Q48H FORTINO Administration Protocol Sodium Bicarbonate 150 meq/ 1,150 mls @ 50 mls/hr 08/15/19 17:00 08/17/19 12:16 Dextrose IV 50 mls/hr DIRECT FORTINO Administration Lactulose 20 gm 08/18/19 12:00 Cephulac PO Q4H FORTINO Lansoprazole 30 mg 08/13/19 10:00 08/18/19 10:11 Prevacid Solutab FEEDTUBE 30 mg BID FORTINO Administration Midodrine 10 mg 08/17/19 16:00 08/18/19 10:08 Proamatine PO 10 mg TID@0800,1200,1600 FORTINO Administration Multivit/Ca Carb/B Cmplx/FA/Prenat 1 cap 08/18/19 10:00 08/18/19 10:12 Renal Caps PO 1 cap QDAY FORTINO Administration Ondansetron HCl 4 mg 08/11/19 23:13 Zofran IV Q8H PRN Nausea And Vomiting Rifaximin 550 mg 08/13/19 10:00 08/18/19 10:06 Xifaxan PO 550 mg BID FORTINO Administration Simple Syrup 15 ml 08/15/19 14:03 Simple Syrup FEEDTUBE PRN PRN Hypoglycemia Simple Syrup 30 ml 08/15/19 14:03 Simple Syrup FEEDTUBE PRN PRN Hypoglycemia Sodium Bicarbonate 1,300 mg 08/13/19 14:00 08/18/19 10:07 Sodium Bicarbonate PO 1,300 mg TID FORTINO Administration Sodium Bicarbonate 325 mg 08/15/19 14:03 Sodium Bicarbonate FEEDTUBE PRN PRN For Clogged Feeding Tube Sodium Chloride 10 ml 08/12/19 10:00 08/18/19 10:13 Sodium Chloride Flush Syringe 10 Ml IV 10 ml BID FORTINO Administration Sodium Chloride 10 ml 08/11/19 23:13 08/13/19 21:54 Sodium Chloride Flush Syringe 10 Ml IV 10 ml PRN PRN Administration LINE FLUSH
--- NOTE | 2019-08-18 11:54 | Progress Note ---
Assessment and Plan Cultures: 08/11/2019 blood culture: no growth thus far 08/12/2019 urine culture: no growth A/P: 74-year-old male with extensive alcohol abuse, alcoholic cirrhosis, decubitus ulcers, recent hospitalization, now admitted with: #Shock, hypothermia, likely septic: Improved. Source unclear, possibly urine given significant pyuria v/s SBP, he has ascites on US. Now weaned off pressors. #UTI: now has hewitt placed. Has history of VRE UTI, got linezolid in ER, hold off on additional linezolid in the setting of thrombocytopenia and negative urine culture. #Lactic acidosis #Acute renal failure: renally dose abx. #Thrombocytopenia #H/O alcohol abuse, hepatic encephalopathy #Multiple skin tears, malnutrition: recommend wound care. Recs: d/w Dr. Kaufman, paracentesis not done given small pocket of ascitic fluid, yield anyways low given patient already on antibiotics and now off pressors continue IV Meropenem and Daptomycin renally adjusted, will plan to stop in 2 days Prognosis is extremely poor, recommend hospice Sherry Knight MD, FACP [facility] ([facility]) C: [phone] O: [phone] F: [phone] Subjective Date of service: 08/18/19 Principal diagnosis: shock Interval history: Afebrile. Remains awake, but encephalopathic. Now off pressors for 48 hours. On ventimask. Objective - Exam Narrative Exam: Physical Exam: Constitutional: opens eyes, but encephalopathic Head, Ears, Nose: Normocephalic, atraumatic. External ears, nose normal Eyes: Conjunctivae/corneas clear. No icterus. No ptosis. Neck: Supple, no meningeal signs Cardiovascular: S1, S2 normal. Respiratory: Good air entry, clear to auscultation bilaterally GI: Soft, non-tender; bowel wall edema, bowel sounds normal. No peritoneal signs Musculoskeletal: anasarca + Skin: extensive skin tears, purpuric areas on skin Hem/Lymphatic: No palpable cervical or supraclavicular nodes. No lymphangitis Psych: confused, not agitated Neurological: awake and encephalopathic - Constitutional Vitals: Vital Signs Temp Pulse Resp BP Pulse Ox 96.2 F L 98 H 15 113/60 100 08/18/19 04:00 08/18/19 08:30 08/18/19 08:30 08/18/19 08:30 08/18/19 11:27 Temperature -Last 24 Hours Temperature 96.2 F Temperature 36.2 F Temperature 96.9 F Temperature 97.4 F Temperature 97.4 F Temperature 97.3 F Temperature 97.1 F - Labs CBC & Chem 7: 08/18/19 04:45 08/18/19 04:45 Labs: Abnormal lab results 08/18/19 08/18/19 08/18/19 Range/Units 04:45 04:45 04:45 RBC 3.01 L (3.65-5.03) M/mm3 Hgb 9.2 L (11.8-15.2) gm/dl Hct 27.4 L (35.5-45.6) % RDW 23.4 H (13.2-15.2) % Plt Count 19 L* (140-440) K/mm3 Seg Neuts % (Manual) 85.0 H (40.0-70.0) % Lymphocytes % (Manual) 13.0 L (13.4-35.0) % Seg Neutrophils # Man 8.2 H (1.8-7.7) K/mm3 Fibrinogen (211-480) mg/dl Potassium 3.5 L (3.6-5.0) mmol/L Carbon Dioxide 15 L (22-30) mmol/L BUN 72 H (9-20) mg/dL Creatinine 3.9 H (0.8-1.5) mg/dL Glucose 71 L (75-100) mg/dL Calcium 7.5 L (8.4-10.2) mg/dL TIBC 39 L (250-450) mcg/dL Total Bilirubin 5.30 H (0.1-1.2) mg/dL NT-Pro-B Natriuret Pep 23409 H (0-900) pg/mL Total Protein 5.2 L (6.3-8.2) g/dL Albumin 3.4 L (3.9-5) g/dL Folate (7.3-26.0) ng/mL 08/18/19 08/18/19 Range/Units 04:45 04:45 RBC (3.65-5.03) M/mm3 Hgb (11.8-15.2) gm/dl Hct (35.5-45.6) % RDW (13.2-15.2) % Plt Count (140-440) K/mm3 Seg Neuts % (Manual) (40.0-70.0) % Lymphocytes % (Manual) (13.4-35.0) % Seg Neutrophils # Man (1.8-7.7) K/mm3 Fibrinogen 114 L (211-480) mg/dl Potassium (3.6-5.0) mmol/L Carbon Dioxide (22-30) mmol/L BUN (9-20) mg/dL Creatinine (0.8-1.5) mg/dL Glucose (75-100) mg/dL Calcium (8.4-10.2) mg/dL TIBC (250-450) mcg/dL Total Bilirubin (0.1-1.2) mg/dL NT-Pro-B Natriuret Pep (0-900) pg/mL Total Protein (6.3-8.2) g/dL Albumin (3.9-5) g/dL Folate 6.49 L (7.3-26.0) ng/mL
[2019-08-18] MEDS ORDERED: LACTULOSE 20 GM/30 ML ORAL LIQD PO SCH (12:00)
--- NOTE | 2019-08-18 13:55 | XRay Report ---
CHEST 1 VIEW INDICATION: nicky. COMPARISON: 08/11/2019. FINDINGS: Support devices: Feeding tube unchanged. Heart: Within normal limits. Lungs/Pleura: Persistent basilar effusions with associated volume loss. Overall lung volumes have dim inished. Edema has improved. Additional findings: None. IMPRESSION: 1. Or system pleural fluid/volume loss. 2. Mild interval decrease in lung volumes. 3. Improving edema. Signer Name: Jasson Chilel MD Signed: 08/18/2019 1:51 PM Workstation Name: [id number]
[2019-08-18] MEDS ORDERED: BUMETANIDE 1 MG/4 ML INJ IV ONE (14:47)
--- NOTE | 2019-08-18 15:00 | Progress Note ---
Assessment and Plan - Patient Problems (1) HERRERA (acute kidney injury) Current Visit: No Status: Acute Plan to address problem: Acute kidney injury Current creatinine 3.9 Baseline creatinine 1.4 Her significant edema chest x-ray with congestion Elevated BNP We'll start diuresis (2) Anemia Current Visit: No Status: Acute Plan to address problem: Mild anemia Hemoglobin 9.2 g per DL Monitor CBC (3) Hepatic encephalopathy Current Visit: Yes Status: Acute Plan to address problem: Hepatic encephalopathy Associated liver cirrhosis Continue medications Monitor mental status (4) Cirrhosis Current Visit: Yes Status: Chronic Plan to address problem: Decompensated Liver cirrhosis associated with thrombocytopenia History of alcohol abuse Continue medical management Subjective Principal diagnosis: shock Interval history: 74-year-old gentleman with alcohol abuse cirrhosis acute kidney injury nephr ology consulted for same He is on a Ventimask Has significant lower extremity edema has multiple ecchymoses and bruising Objective - Vital Signs Vital signs: Vital Signs - 12hr 08/18/19 08/18/19 08/18/19 03:00 03:15 03:30 Temperature Pulse Rate 100 H 98 H 96 H Pulse Rate [ From Monitor] Respiratory 13 14 14 Rate Blood Pressure 109/70 115/78 120/77 O2 Sat by Pulse Oximetry 08/18/19 08/18/19 08/18/19 03:45 04:00 04:15 Temperature 96.2 F L Pulse Rate 94 H 98 H 94 H Pulse Rate [ 94 H From Monitor] Respiratory 12 11 L 10 L Rate Blood Pressure 122/72 125/75 120/73 O2 Sat by Pulse Oximetry 08/18/19 08/18/19 08/18/19 04:30 04:45 05:00 Temperature Pulse Rate 92 H 94 H 98 H Pulse Rate [ From Monitor] Respiratory 12 11 L 11 L Rate Blood Pressure 117/72 117/72 117/73 O2 Sat by Pulse Oximetry 08/18/19 08/18/19 08/18/19 05:11 05:15 05:30 Temperature Pulse Rate 95 H 96 H 90 Pulse Rate [ From Monitor] Respiratory 20 10 L 8 L Rate Blood Pressure 125/75 123/72 113/67 O2 Sat by Pulse Oximetry 08/18/19 08/18/19 08/18/19 05:45 06:00 06:15 Temperature Pulse Rate 95 H 97 H 100 H Pulse Rate [ From Monitor] Respiratory 9 L 15 13 Rate Blood Pressure 125/76 116/81 132/76 O2 Sat by Pulse Oximetry 08/18/19 08/18/19 08/18/19 06:31 06:45 07:00 Temperature Pulse Rate 103 H 108 H 95 H Pulse Rate [ From Monitor] Respiratory 13 17 14 Rate Blood Pressure 132/76 132/76 111/67 O2 Sat by Pulse 100 100 Oximetry 08/18/19 08/18/19 08/18/19 07:15 07:30 07:45 Temperature Pulse Rate 95 H 96 H 88 Pulse Rate [ From Monitor] Respiratory 14 9 L 8 L Rate Blood Pressure 121/76 110/67 110/67 O2 Sat by Pulse 100 100 100 Oximetry 08/18/19 08/18/19 08/18/19 08:00 08:06 08:15 Temperature Pulse Rate 96 H 97 H Pulse Rate [ From Monitor] Respiratory 12 22 Rate Blood Pressure 113/77 113/77 O2 Sat by Pulse 91 100 100 Oximetry 08/18/19 08/18/19 08:30 11:27 Temperature Pulse Rate 98 H Pulse Rate [ From Monitor] Respiratory 15 Rate Blood Pressure 113/60 O2 Sat by Pulse 100 100 Oximetry - General Appearance General appearance: chronically ill, frail EENT: ATNC, PERRL Neck: no JVD Respiratory: Present: Decreased Breath Sounds Cardiology: regular, S1S2 Gastrointestinal: normal, normoactive bowel sounds Integumentary: no rash Neurologic: alert and oriented x3, CN 3-12 intact Psychiatric: mood/affect appropriate - Lab 08/18/19 04:45 08/18/19 04:45 Most recent lab results Calcium 7.5 mg/dL (8.4-10.2) L 08/18/19 04:45 Phosphorus 3.70 mg/dL (2.5-4.5) 08/17/19 06:27 Magnesium 1.60 mg/dL (1.7-2.3) L 08/17/19 06:27 - Imaging Chest x-ray: image reviewed (review chest x-ray with concern for pulmonary congestion) Medications & Allergies - Medications Allergies/Adverse Reactions: Allergies Unable to Assess Allergy (Verified 07/04/19 05:14) ams Home Medications: Home Medications Medication Instructions Recorded Confirmed Last Taken Type Lactulose [Cephulac] 20 gm PO QDAY #30 oral.liqd 07/11/19 08/11/19 Unknown Rx Pantoprazole [Protonix TAB] 40 mg PO BID #60 tablet 07/11/19 08/11/19 Unknown Rx Rifaximin [Xifaxan] 550 mg PO BID tablet 07/11/19 08/11/19 Unknown Rx Sodium Bicarbonate 1,300 mg PO TID tablet 07/11/19 08/11/19 Unknown Rx oxyCODONE /ACETAMINOPHEN [Percocet 1 tab PO Q6H PRN #7 tablet 07/11/19 08/11/19 Unknown Rx 5/325 mg] Active Medications: Generic Name Dose Route Start Last Admin Trade Name Freq PRN Reason Stop Dose Admin Lipase/Protease/Amylase 1 each 08/15/19 14:03 Pancreaze 10,500 Unit FEEDTUBE PRN PRN For Clogged Feeding Tube Bumetanide 1 mg 08/18/19 21:00 Bumex IV BID@0900,2100 FORTINO Bumetanide 1 mg 08/18/19 14:47 Bumex IV 08/18/19 14:48 ONCE ONE Dextrose 0 ml 08/11/19 23:00 08/15/19 18:37 D50w (25gm) Syringe IV 50 ml Q30MIN PRN Administration Hypoglycemia Protocol Norepinephrine 4 mg in 250 mls @ 7.5 mls/hr 08/11/19 22:00 08/18/19 08:00 Levophed Drip 4 Mg/Ns 250 Ml IV 0 mcg/min TITR FORTINO 0 mls/hr Titration Protocol 2 MCG/MIN Vasopressin 20 unit/ Sodium 101 mls @ 9.09 mls/hr 08/12/19 11:00 08/16/19 11:16 Chloride IV 0 units/min TITR FORTINO 0 mls/hr Titration Protocol 0.03 UNITS/MIN MEROPENEM/NS 1 GRAM/100 ML 1 gram in 100 mls @ 100 mls/hr 08/12/19 14:30 08/18/19 10:06 Merrem/Ns 1 Gram/100 Ml IV 100 mls/hr Q24HR FORTINO Administration Protocol Daptomycin 500 mg/ Sodium 100 mls @ 200 mls/hr 08/15/19 15:00 08/17/19 15:11 Chloride IV 200 mls/hr Q48H FORTINO Administration Protocol Sodium Bicarbonate 150 meq/ 1,150 mls @ 50 mls/hr 08/15/19 17:00 08/17/19 12:16 Dextrose IV 50 mls/hr DIRECT FORTINO Administration Lactulose 20 gm 08/18/19 12:00 Cephulac PO Q4H FORTINO Lansoprazole 30 mg 08/13/19 10:00 08/18/19 10:11 Prevacid Solutab FEEDTUBE 30 mg BID FORTINO Administration Midodrine 10 mg 08/17/19 16:00 08/18/19 13:21 Proamatine PO 10 mg TID@0800,1200,1600 FORTINO Administration Multivit/Ca Carb/B Cmplx/FA/Prenat 1 cap 08/18/19 10:00 08/18/19 10:12 Renal Caps PO 1 cap QDAY FORTINO Administration Ondansetron HCl 4 mg 08/11/19 23:13 Zofran IV Q8H PRN Nausea And Vomiting Rifaximin 550 mg 08/13/19 10:00 08/18/19 10:06 Xifaxan PO 550 mg BID FORTINO Administration Simple Syrup 15 ml 08/15/19 14:03 Simple Syrup FEEDTUBE PRN PRN Hypoglycemia Simple Syrup 30 ml 08/15/19 14:03 Simple Syrup FEEDTUBE PRN PRN Hypoglycemia Sodium Bicarbonate 1,300 mg 08/13/19 14:00 08/18/19 13:22 Sodium Bicarbonate PO 1,300 mg TID FORTINO Administration Sodium Bicarbonate 325 mg 08/15/19 14:03 Sodium Bicarbonate FEEDTUBE PRN PRN For Clogged Feeding Tube Sodium Chloride 10 ml 08/12/19 10:00 08/18/19 10:13 Sodium Chloride Flush Syringe 10 Ml IV 10 ml BID FORTINO Administration Sodium Chloride 10 ml 08/11/19 23:13 08/13/19 21:54 Sodium Chloride Flush Syringe 10 Ml IV 10 ml PRN PRN Administration LINE FLUSH
[2019-08-18] MEDS ORDERED: BUMETANIDE 1 MG/4 ML INJ IV SCH (21:00)
--- NOTE | 2019-08-18 21:34 | Emergency Department Report ---
Blank Doc - Documentation Documentation: I responded to CODE BLUE. Mr. Holland is a inpatient in the critical care unit. Hospitalist multiple staff members performing ACLS. Procedure note: Emergent intubation Complications: None I used Dennise 3-0 blade and 8-0 ETT to intubate the patient. Due to comatose state, RSI mediations were not necessary. I was able to visualize the vocal cords. I visualized the tube passing through the vocal cords. Positive color change on CO2 detector. Equal breath sounds and adequate oxygenation after intubation with one attempt.
[2019-08-18] MEDS ORDERED: SODIUM BICARBONATE 100 MEQ in DEXTROSE 5% IN WATER 1,000 ML IV SCH (21:46)
--- NOTE | 2019-08-18 21:51 | Event Note ---
Date: 08/18/19 CODE CHANDRAKANT called 74-year-old male who has been on admission for multiple medical problems including sepsis secondary to UTI, septic shock, hepatic encephalopathy, and thrombocytopenia. He was said to have lost his pulse. Resuscitative measures were initiated according to ACLS protocol. There was subsequent return of pulse and patient subsequently intubated. Vitals remained stable. Patient has been started on IV fluid and also placed on bicarb drip. Chest x-ray has been scheduled, ABG and routine labs also scheduled. We will review chest x-ray and labs. We will continue all other routine management. Patient is being followed by infectious disease and critical care.
[2019-08-18] MEDS ORDERED: NORepinephrine/NS 4 MG-250 ML 4 MG/250 ML BAG IV SCH (22:00)
--- NOTE | 2019-08-18 22:43 | XRay Report ---
CHEST 1 VIEW INDICATION: NEW INTUBATION COMPARISON: Earlier exam same day FINDINGS: Support devices: Endotracheal tube has been placed and appears to be in good position, approximately 6 cm above the beverly. Heart: Stable. Lungs/Pleura: Since earlier today, there has developed diffuse parenchymal disease in both lungs, mos t likely pulmonary edema. Small bilateral pleural effusions persist. IMPRESSION: 1. Endotracheal tube is in good position. 2. Interval development of considerable parenchymal disease bilaterally, most likely pulmonary edema. Signer Name: Jemal Bonilla MD Signed: 08/18/2019 10:39 PM Workstation Name: [id number]
[2019-08-18 23:41] LABS: Hematocrit 28.1 % (35.5-45.6); Hemoglobin 9.5 gm/dl (11.8-15.2); Mean Corpuscular HGB Conc 34 % (32-34); Mean Corpuscular Volume 92 fl (84-94); Red Blood Count 3.07 M/mm3 (3.65-5.03)
[2019-08-18 23:51] LABS: Platelet Count 57 K/mm3 (140-440)
[2019-08-19] MEDS ORDERED: D5W IV ONE (00:01)
[2019-08-19] MEDS ORDERED: SODIUM CHLORIDE 0.9% 1000 ML IV SOLN ONE (00:01)
[2019-08-19 00:05] LABS: Albumin 2.5 g/dL (3.9-5); Calcium 6.8 mg/dL (8.4-10.2)
[2019-08-19] MEDS ORDERED: PHENYLEPHRINE 100 MG in SODIUM CHLORIDE 0.9% 90 ML IV SCH (01:00)
[2019-08-19 01:11] VITALS: BP 56/30
[2019-08-19] MEDS ORDERED: SODIUM CHLORIDE 0.9% 1000 ML 1,000 ML ONE (01:58)
[2019-08-19] MEDS ORDERED: VASOPRESSIN 20 UNIT in SODIUM CHLORIDE 0.9% 100 ML IV SCH (02:00)
[2019-08-19] MEDS ORDERED: EPINEPHrine 1:10,000 1 MG/10 ML SYRINGE ONE (03:03)
[2019-08-19] MEDS ORDERED: EPINEPHrine 30 MG/30 ML INJ IV ONE (03:03)
[2019-08-19] MEDS ORDERED: CALCIUM CHLORIDE 1,000 MG/10 ML SYRINGE IV ONE (03:03)
--- NOTE | 2019-08-19 03:06 | Consultation ---
REFERRED BY: Dr. Diaz. REASON FOR CONSULTATION: Thrombocytopenia. HISTORY OF PRESENT ILLNESS: I saw the patient, a 74-year-old male on the medical floor. The patient has a history of cirrhosis, pressure ulcers, urinary issues. He was treated for hepatic encephalopathy. He received cefepime, Zyvox. He was also placed on Levophed drip. Platelet counts are going down. I have been asked to evaluate the patient for this. REVIEW OF SYSTEMS: Not reliable. The patient's answers are not appropriate. Most of the information comes from the medical records. PAST MEDICAL HISTORY: Cirrhosis, pressure ulcer, skin lesions. PAST SURGICAL HISTORY: Noncontributory. SOCIAL HISTORY: History of alcohol usage, history of altered mentation. ALLERGIES: Not available. HOME MEDICATIONS: Include Xifaxan, lactulose, oxycodone. MEDICATIONS: Reviewed. PHYSICAL EXAMINATION: VITAL SIGNS: Temperature 98, pulse 125, respirations 22, BP 133/79. HEENT: Pallor present, no icterus. SKIN: Generalized skin rash. Multiple areas of skin changes present. Papular lesions seen. HEART: S1, S2. LUNGS: Clear to auscultation anteriorly. ABDOMEN: Soft, confused. LABORATORY DATA: White cell 9.7, hemoglobin 9.2, MCV 91, platelets 19. Potassium 3.5, creatinine 3.9, calcium 7.5, bilirubin 5.3, folate 6.49. ASSESSMENT AND PLAN: 1. Thrombocytopenia, cirrhosis and medications may have a role. We will intervene if there is bleeding issues, FFP, vitamin K an option. 2. Anemia, likely secondary to liver disease. 3. Elevated bilirubin, likely secondary to liver disease. 4. Low folate, replaced. 5. Radiology, abdominal ultrasound was done during this admission, which shows cirrhosis of liver. We will observe. 6. History of alcohol usage. 7. History of encephalopathy. 8. Skin lesions. 9. History of vancomycin-resistant Enterococcus. 10. History of hypothermia. 11. History of hypertension. JOB# [id number] NM/NTS
[2019-08-19 06:14] LABS: Band Neutrophils # (Manual) 0.4 K/mm3; Basophils % (Manual) 0 % (0.0-1.8); Eosinophils % (Manual) 0 % (0.0-4.3); Total Cells Counted 100
[2019-08-19 06:15] LABS: Anisocytosis 1+; Platelet Estimate Consistent w Auto
--- NOTE | 2019-08-19 08:17 | Event Note ---
Date: 08/19/19 Patient is a 74-year old male with thrombocytopenia, hepatic encephalopathy, sepsis probably secondary to UTI who has been coded several times today. Patient had lost his pulse again after being on multiple pressors. Resuscitative measures were commenced again according to ACLS protocol however all attempts to resuscitate patient was unsuccessful. Patient was pronounced at about time at 5:20 AM on August 19, 2019. Attempts were made to communicate with family members regarding patient's condition but all attempts were unsuccessful.
--- NOTE | 2019-08-19 15:55 | Discharge Summary ---
Providers - Providers Date of Admission: 08/11/19 23:13 Date of discharge: 08/19/19 Attending physician: NATHEN MCKNIGHT 08/11/19 23:13 Consult to Physician [CONS] Routine Comment: Consulting Provider: ASHLEY SERRANO Physician Instructions: Reason For Exam: cc 08/11/19 23:32 Consult to Physician [CONS] Routine Comment: Consulting Provider: ANDRE MENDOZA Physician Instructions: Reason For Exam: arf 08/12/19 07:38 Consult to Wound/ET Nurse [CONS] Routine Reason For Exam: wound eval 08/12/19 11:34 Consult to Physician [CONS] Routine Comment: Consulting Provider: EDA NGUYEN Physician Instructions: Reason For Exam: sepsis 08/12/19 14:51 Consult to Physician [CONS] Routine Comment: Consulting Provider: ANDRE MENDOZA Physician Instructions: Reason For Exam: HERRERA 08/17/19 09:28 Consult to Physician [CONS] Routine Comment: Consulting Provider: VIJAY MARRUFO Physician Instructions: Reason For Exam: Thrombocytopenia/Sepsis 08/17/19 13:33 Consult to Dietitian/Nutrition [CONS] Routine Physician Instructions: Assess nutrtn needs, initiate, modify, manage TF Reason For Exam: Reason for Consult: Write/Manage Tube Feeding Reason for Consult: Write/Manage Tube Feeding 08/18/19 11:16 Occupational Therapy Evaluate and Treat [CONS] Routine Comment: Reason For Exam: Debility Physical Therapy Evaluation and Treat [CONS] Routine Comment: Reason For Exam: Debility Primary care physician: NOA MAY MD Hospitalization Condition: Critical Disposition: DC-20 Core Measure Documentation - Palliative Care Palliative Care/ Comfort Measures: Not Applicable Exam - Constitutional Vitals: Temp Pulse Resp BP Pulse Ox 97.6 F 109 H 22 56/30 92 08/19/19 04:12 08/19/19 00:26 08/19/19 00:26 08/19/19 00:26 08/19/19 00:26 Plan Follow up with: NOA FOX MD [Primary Care Provider] - 7 Days
== END 2019-08-19 04:48 | DRG 871 ==
LOC: ED 17:31 → CC1 23:13 → IMCU 08-18 18:32 → CC1 08-18 22:35
PROVIDERS: ADMIT Internal Medicine; ATTEND Internal Medicine
PROC: 05HY33Z Insertion of Infusion Device into Upper Vein, Percutaneous Approach (ICD-10-PCS; 2019-08-11)
PROC: B544ZZA Ultrasonography of Left Jugular Veins, Guidance (ICD-10-PCS; 2019-08-11)
PROC: 30233N1 Transfusion of Nonautologous Red Blood Cells into Peripheral Vein, Percutaneous Approach (ICD-10-PCS; 2019-08-14)
PROC: 5A09357 Assistance with Respiratory Ventilation, Less than 24 Consecutive Hours, Continuous Positive Airway Pressure (ICD-10-PCS; 2019-08-17)
PROC: 30233R1 Transfusion of Nonautologous Platelets into Peripheral Vein, Percutaneous Approach (ICD-10-PCS; principal; 2019-08-18)
PROC: 4A033R1 Measurement of Arterial Saturation, Peripheral, Percutaneous Approach (ICD-10-PCS; 2019-08-18)
PROC: 5A1935Z Respiratory Ventilation, Less than 24 Consecutive Hours (ICD-10-PCS; 2019-08-18)
PROC: 0BH17EZ Insertion of Endotracheal Airway into Trachea, Via Natural or Artificial Opening (ICD-10-PCS; 2019-08-18)
PROC: 5A09357 Assistance with Respiratory Ventilation, Less than 24 Consecutive Hours, Continuous Positive Airway Pressure (ICD-10-PCS; 2019-08-18)
DX: A41.9 Sepsis, unspecified organism (principal); R65.21 Severe sepsis with septic shock; I21.A1 Myocardial infarction type 2; E43 Unspecified severe protein-calorie malnutrition; N39.0 Urinary tract infection, site not specified; D68.9 Coagulation defect, unspecified; E87.1 Hypo-osmolality and hyponatremia; I48.92 Unspecified atrial flutter; N17.9 Acute kidney failure, unspecified; D69.6 Thrombocytopenia, unspecified; K72.90 Hepatic failure, unspecified without coma; L98.9 Disorder of the skin and subcutaneous tissue, unspecified; I10 Essential (primary) hypertension; I48.91 Unspecified atrial fibrillation; K70.30 Alcoholic cirrhosis of liver without ascites; F10.10 Alcohol abuse, uncomplicated; I95.9 Hypotension, unspecified; E16.2 Hypoglycemia, unspecified; E87.6 Hypokalemia; D63.8 Anemia in other chronic diseases classified elsewhere; Z79.899 Other long term (current) drug therapy; Z68.26 Body mass index [BMI] 26.0-26.9, adult
CPT/HCPCS: 36415; 36600; 70450; 71045; 74018; 76700; 80048; 80053; 80061; 80074; 80076; 80202; 80320; 81001; 82140; 82550; 82553; 82747; 82803; 82962; 83550; 83735; 83880; 84100; 84443; 84484; 85007; 85025; 85027; 85384; 85610; 85730; 86850; 86900; 86901; 86920; 87040; 87070; 87086; 87205; 93005; 93010; 94002; 94003; 94660; 94760; 95819; G0378; G0480; J0171; J0692; J0878; J2020; J2185; J2250; J2370; J3370; J3430; J3475; J3480; J7030; J7040; J7060; J7070; P9016; P9035; P9047